=== PATIENT | male | born 1935 | race Caucasian/White ===

== ENCOUNTER 2016-09-23 14:16 | Observation (INO) | payer MEDICARE ==
[2016-09-23 14:32] LABS: Glucose,Whole Blood 133 mg/dL (75-99)
[2016-09-23] MEDS ORDERED: SODIUM CHLORIDE 0.9% 500 ML IV ONE (14:50)
--- NOTE | 2016-09-23 14:56 | ED ---
General Adult HPI - General Chief complaint: Syncope Stated complaint: WEAKNESS Time Seen by Provider: 09/23/16 14:20 Source: patient, RN notes reviewed Mode of arrival: EMS Limitations: physical limitation - History of Present Illness Initial comments: This is an 81-year-old male presents emergency department because he became very lethargic at some slurred speech and was difficult to keep awake. Patient states he thinks he took a restaurant set of an Aleve. Patient states he was taking an Aleve because he had some left lower quadrant pain which she has been battling intermittent over the last 6 months. Patient states he has a history of diverticulosis. Patient states he has no symptoms currently except for a little left lower quadrant tenderness. Patient denies any headache patient denies numbness weakness. Patient denies lightheadedness dizziness or near syncopal episode. Patient denies any chest pain palpitations difficulty breathing first breath. Patient denies any nausea vomiting or diarrhea. Patient's family states he acted as if he was really sleepy and was very difficult to keep awake and conversing however when he was able to converse he was able to walk except he was very tired. Patient states when he takes restaurant this is exactly how it makes him feel. - Related Data Home Medications Medication Instructions Recorded Confirmed Metoprolol Tartrate [Lopressor] 25 mg PO BID 01/14/15 09/23/16 Cholecalciferol [Vitamin D3] 5,000 unit PO DAILY 09/23/16 09/23/16 Multivit-Min/FA/Lycopen/Lutein 1 tab PO DAILY 09/23/16 09/23/16 [Centrum Silver Tablet] Naproxen Sodium [Aleve] 220 mg PO BID PRN 09/23/16 09/23/16 Temazepam [Restoril] 30 mg PO HS PRN 09/23/16 09/23/16 Previous Rx's Medication Instructions Recorded Aspirin 325 mg PO DAILY tab 01/17/15 Clopidogrel [Plavix] 75 mg PO DAILY #90 tab 01/17/15 Nitroglycerin Sl Tabs [Nitrostat] 0.4 mg SUBLINGUAL Q5M PRN #25 tab 01/17/15 Allergies Allergy/AdvReac Type Severity Reaction Status Date / Time No Known Allergies Allergy Verified 09/23/16 14:21 Review of Systems ROS Statement: Those systems with pertinent positive or pertinent negative responses have been documented in the HPI. ROS Other: All systems not noted in ROS Statement are negative. Past Medical History Past Medical History: Atrial Fibrillation, Chest Pain / Angina, Heart Failure, COPD, Dementia, Hyperlipidemia, Hypertension, Myocardial Infarction ([place]), Pneumonia Last Myocardial Infarction Date:: 2009 History of Any Multi-Drug Resistant Organisms: None Reported Past Surgical History: Back Surgery, Coronary Bypass/CABG, Heart Catheterization With Stent Additional Past Surgical History / Comment(s): stents x5. bypass pt states "around 2009 at [facility], he had openheart and it was unseccful on one side so they had to sent it. Past Anesthesia/Blood Transfusion Reactions: No Reported Reaction Date of Last Stent Placement:: 2009 Past Psychological History: No Psychological Hx Reported Smoking Status: Former smoker Past Alcohol Use History: None Reported Past Drug Use History: None Reported - Past Family History Father Additional Family Medical History / Comment(s): father had a cardica hx, unsure of what Brother(s) Additional Family Medical History / Comment(s): pt reports his brother to had a cardica hx General Exam - General Exam Comments Initial Comments: GENERAL: Patient is well-developed and well-nourished. Patient is nontoxic and well- hydrated and is in mild distress. ENT: Neck is soft and supple. No significant lymphadenopathy is noted. Oropharynx is clear. Moist mucous membranes. Neck has full range of motion without eliciting any pain. EYES: The sclera were anicteric and conjunctiva were pink and moist. Extraocular movements were intact and pupils were equal round and reactive to light. Eyelids were unremarkable. PULMONARY: Unlabored respirations. Good breath sounds bilaterally. No audible rales rhonchi or wheezing was noted. CARDIOVASCULAR: There is a regular rate and rhythm without any murmurs gallops or rubs. ABDOMEN: Patient has some mild left lower quadrant tenderness. Soft and nontender with normal bowel sounds. No palpable organomegaly was noted. There is no palpable pulsatile mass. SKIN: Skin is clear with no lesions or rashes and otherwise unremarkable. NEUROLOGIC: Patient is alert and oriented x3. Cranial nerves II through XII are grossly intact. Motor and sensory are also intact. Normal speech, volume and content. Symmetrical smile. MUSCULOSKELETAL: Normal extremities with adequate strength and full range of motion. LYMPHATICS: No significant lymphadenopathy is noted PSYCHIATRIC: Normal psychiatric evaluation. Limitations: physical limitation Course Vital Signs 08/10/17 08/10/17 14:17 16:15 Pulse Rate 62 75 Respiratory 20 20 Rate Blood Pressure 177/80 161/73 O2 Sat by Pulse 96 98 Oximetry Medical Decision Making - Medical Decision Making EKG shows atrial fibrillation at 74 bpm QRS 70 QT interval 412 QTC is 457 per patient's EKG shows no ST segment elevation or depression or T wave abnormalities are noted. CT of the abdomen pelvis show a mild to moderate diverticulitis - Lab Data Result diagrams: 09/23/16 14:58 09/23/16 14:58 Lab Results 09/23/16 09/23/16 09/23/16 Range/Units 14:29 14:58 14:58 WBC 6.8 (3.8-10.6) k/uL RBC 4.90 (4.30-5.90) m/uL Hgb 15.9 (13.0-17.5) gm/dL Hct 46.7 (39.0-53.0) % MCV 95.4 (80.0-100.0) fL MCH 32.4 (25.0-35.0) pg MCHC 33.9 (31.0-37.0) g/dL RDW 14.3 (11.5-15.5) % Plt Count 170 (150-450) k/uL Neutrophils % 77 % Lymphocytes % 11 % Monocytes % 8 % Eosinophils % 2 % Basophils % 0 % Neutrophils # 5.2 (1.3-7.7) k/uL Lymphocytes # 0.7 L (1.0-4.8) k/uL Monocytes # 0.5 (0-1.0) k/uL Eosinophils # 0.1 (0-0.7) k/uL Basophils # 0.0 (0-0.2) k/uL PT (9.0-12.0) sec INR (<1.2) APTT (22.0-30.0) sec Sodium (137-145) mmol/L Potassium (3.5-5.1) mmol/L Chloride (98-107) mmol/L Carbon Dioxide (22-30) mmol/L Anion Gap mmol/L BUN (9-20) mg/dL Creatinine (0.66-1.25) mg/dL Est GFR (MDRD) Af Amer (>60 ml/min/1.73 sqM) Est GFR (MDRD) Non-Af (>60 ml/min/1.73 sqM) Glucose (74-99) mg/dL POC Glucose (mg/dL) 133 H (75-99) mg/dL POC Glu [employer] Antony Peña Calcium (8.4-10.2) mg/dL Total Bilirubin (0.2-1.3) mg/dL AST (17-59) U/L ALT (21-72) U/L Alkaline Phosphatase (38-126) U/L Total Creatine Kinase 45 L (55-170) U/L CK-MB (CK-2) 1.0 (0.0-2.4) ng/mL CK-MB (CK-2) Rel Index 2.2 Troponin I <0.012 (0.000-0.034) ng/mL Total Protein (6.3-8.2) g/dL Albumin (3.5-5.0) g/dL 09/23/16 09/23/16 Range/Units 14:58 14:58 WBC (3.8-10.6) k/uL RBC (4.30-5.90) m/uL Hgb (13.0-17.5) gm/dL Hct (39.0-53.0) % MCV (80.0-100.0) fL MCH (25.0-35.0) pg MCHC (31.0-37.0) g/dL RDW (11.5-15.5) % Plt Count (150-450) k/uL Neutrophils % % Lymphocytes % % Monocytes % % Eosinophils % % Basophils % % Neutrophils # (1.3-7.7) k/uL Lymphocytes # (1.0-4.8) k/uL Monocytes # (0-1.0) k/uL Eosinophils # (0-0.7) k/uL Basophils # (0-0.2) k/uL PT 10.6 (9.0-12.0) sec INR 1.0 (<1.2) APTT 23.6 (22.0-30.0) sec Sodium 139 (137-145) mmol/L Potassium 4.5 (3.5-5.1) mmol/L Chloride 104 (98-107) mmol/L Carbon Dioxide 26 (22-30) mmol/L Anion Gap 9 mmol/L BUN 24 H (9-20) mg/dL Creatinine 1.10 (0.66-1.25) mg/dL Est GFR (MDRD) Af Amer >60 (>60 ml/min/1.73 sqM) Est GFR (MDRD) Non-Af >60 (>60 ml/min/1.73 sqM) Glucose 96 (74-99) mg/dL POC Glucose (mg/dL) (75-99) mg/dL POC Glu [employer] ID Calcium 9.3 (8.4-10.2) mg/dL Total Bilirubin 0.7 (0.2-1.3) mg/dL AST 28 (17-59) U/L ALT 35 (21-72) U/L Alkaline Phosphatase 70 (38-126) U/L Total Creatine Kinase (55-170) U/L CK-MB (CK-2) (0.0-2.4) ng/mL CK-MB (CK-2) Rel Index Troponin I (0.000-0.034) ng/mL Total Protein 6.6 (6.3-8.2) g/dL Albumin 3.9 (3.5-5.0) g/dL Disposition Clinical Impression: Diverticulitis, Accidental drug ingestion Disposition: ADMITTED IP TO THIS [facility] Referrals: Noy Ward MD [Primary Care Provider] - 1-2 days Time of Disposition: 16:29
[2016-09-23 15:17] LABS: Basophils % (A) 0 %; CH 32.3; Eosinophils # (A) 0.1 k/uL (0-0.7); Eosinophils % (A) 2 %; HCT 46.7 % (39.0-53.0); HDW 2.35; HGB 15.9 gm/dL (13.0-17.5); Luc # (Auto) 0.18; Luc % (Auto) 3; Lymphocytes # (A) 0.7 k/uL (1.0-4.8); Lymphocytes % (A) 11 %; MCH 32.4 pg (25.0-35.0); MCHC 33.9 g/dL (31.0-37.0); MCV 95.4 fL (80.0-100.0); Mean Platelet Volume 7.9; Monocytes # (A) 0.5 k/uL (0-1.0); Monocytes % (A) 8 %; Neutrophils # (A) 5.2 k/uL (1.3-7.7); Neutrophils % (A) 77 %; RDW 14.3 % (11.5-15.5); WBC 6.8 k/uL (3.8-10.6); WBC (Perox) 6.39
[2016-09-23 15:24] LABS: Partial Thromboplastin Time 23.6 sec (22.0-30.0); Prothrombin Time 10.6 sec (9.0-12.0)
[2016-09-23 15:25] LABS: ALT 35 U/L (21-72); AST 28 U/L (17-59); Alkaline Phosphatase 70 U/L (38-126); Anion Gap 9 mmol/L; Blood Urea Nitrogen 24 mg/dL (9-20); Calcium 9.3 mg/dL (8.4-10.2); Carbon Dioxide 26 mmol/L (22-30); Chloride 104 mmol/L (98-107); Glucose 96 mg/dL (74-99); Non-African American GFR(MDRD) >60 (>60 ml/min/1.73 sqM); Potassium 4.5 mmol/L (3.5-5.1); Sodium 139 mmol/L (137-145); Total Bilirubin 0.7 mg/dL (0.2-1.3); Total Protein 6.6 g/dL (6.3-8.2)
--- NOTE | 2016-09-23 15:38 | XR ---
EXAMINATION TYPE: XR chest 2V DATE OF EXAM: 09/23/2016 COMPARISON: 05/19/2016 TECHNIQUE: PA and lateral views submitted. HISTORY: Chest pain FINDINGS: The lungs are clear and there is no pneumothorax, pleural effusion, or focal pneumonia. Atheroscler otic change of the aorta. Postsurgical changes and cardiomegaly. Hypertrophic and degenerative change s spine. Suggestion of previous surgery involving the thoracolumbar junction. Question coronary arter y calcification. IMPRESSION: 1. No acute process.
[2016-09-23 15:39] LABS: Creatine Kinase 45 U/L (55-170)
--- NOTE | 2016-09-23 15:53 | CT ---
EXAMINATION TYPE: CT abdomen pelvis wo con DATE OF EXAM: 09/23/2016 HISTORY: weakness, syncope. Pain not further specified per order. CT DLP: 975 mGycm. Automated Exposure Control for Dose Reduction was Utilized. TECHNIQUE: CT scan of the abdomen and pelvis is performed without oral or IV contrast. COMPARISON: NONE FINDINGS: Within the limitations of a non-contrast study, the following observations are made. LUNG BASES: There is three-vessel coronary artery calcification and/or stents identified. LIVER/GB: Contracted gallbladder is seen. PANCREAS: No significant abnormality is seen. SPLEEN: No significant abnormality is seen. ADRENALS: No significant abnormality is seen. KIDNEYS: Some cortical thinning in both kidneys is present. There are several simple appearing cysts scattered throughout both kidneys. There is 1.1 cm hyperdense lesion posteriorly upper pole level rig ht kidney felt to reflect proteinaceous or hemorrhagic cyst. There is 4 mm calculus upper pole level left kidney on axial image 24. No hydronephrosis or obstructing renal calculi are seen bilaterally. N o intraluminal calculus and bladder is seen. BOWEL: There are scattered diverticula throughout the colon most pronounced involving the left and si gmoid colon. There is mild to borderline moderate inflammatory change near the descending sigmoid [place] ction left lower quadrant on axial image 52. CT findings are consistent with an acute diverticulitis at this level. No free air is seen. No well-formed adjacent fluid collection is noted. GENITAL ORGANS: Possible TURP type defect superior prostate gland is present. LYMPH NODES: No greater than 1cm abdominal or pelvic lymph nodes are appreciated. OSSEOUS STRUCTURES: Bilateral pars defects L5 level are present. There is slight grade 1 anterolisthe sis of L5 on S1. There is posterior interpedicular rods and screws at L2-L4 levels. There is moderate disc space narrowing at these levels. There is moderate disc space narrowing with vacuum disc phenom enon at the L5-S1 level. Disc desiccation L4-L5 level is seen. Osseous structures are demineralized. Moderate joint space loss in both hips is seen. OTHER: There is moderate calcified plaque of the aorta extending into pelvic branch vessels. There is moderate sized fat-containing left inguinal hernia. IMPRESSION: CT findings consistent with mild to borderline moderate acute diverticulitis centered lef t lower quadrant at the descending sigmoid colonic junction.
[2016-09-23 16:02] LABS: Troponin I <0.012 ng/mL (0.000-0.034)
[2016-09-23] MEDS ORDERED: LEVOFLOXACIN 750MG-D5W PMX 750 MG in DEXTROSE/WATER 1 150ML.BAG IVPB STA (16:27)
[2016-09-23] MEDS ORDERED: SODIUM CHLORIDE 0.9% 1,000 ML IV ONE (16:30)
[2016-09-23] MEDS ORDERED: HYDROmorphone 1 MG/ML 1 ML SYRINGE IVP PRN (16:30)
[2016-09-23] MEDS ORDERED: ONDANSETRON 4 MG/2 ML VIAL IVP PRN (16:31)
[2016-09-23 16:43] LABS: Appearance,Urine Clear (Clear); Bilirubin,Urine Negative (Negative); Glucose,Urine (UA) Negative (Negative); Ketones,Urine Negative (Negative); Leukocyte Esterase,Urine Negative (Negative); Mucus,Urine Rare /hpf; Nitrite,Urine Negative (Negative); PH, Urine 5.5 (5.0-8.0); Particle Count 490; Protein,Urine Negative (Negative); RBC,Urine 3 /hpf (0-5); Specific Gravity,Urine 1.013 (1.001-1.035); Sperm,Urine Rare /hpf; Squamous Epithelial Cell,Urine <1 /hpf (0-4); UA Billing (MACRO vs. MICRO) MICRO; Urobilinogen,Urine <2.0 mg/dL (<2.0)
[2016-09-23] MEDS ORDERED: diphenhydrAMINE 50 MG/ML 1 ML VIAL IVP PRN (17:56)
[2016-09-23] MEDS: metroNIDAZOLE-NS PMX 500 MG in SALINE 1 100ML.BAG IVPB SCH ×2 (18:04→23:18)
[2016-09-23] MEDS: METOPROLOL TARTRATE 25 MG TAB PO SCH (21:26)
[2016-09-24] MEDS: metroNIDAZOLE-NS PMX 500 MG in SALINE 1 100ML.BAG IVPB SCH ×4 (05:43→23:23)
[2016-09-24] MEDS: METOPROLOL TARTRATE 25 MG TAB PO SCH ×2 (08:43→20:02)
[2016-09-24] MEDS: CLOPIDOGREL 75 MG TAB PO SCH (08:43)
[2016-09-24] MEDS: ASPIRIN 325 MG TAB PO SCH (08:44)
[2016-09-24] MEDS: MULTIVITAMINS, THERA 1 EACH TAB PO SCH (11:42)
[2016-09-24] MEDS: CHOLECALCIFEROL 1,000 UNIT TAB PO SCH (11:42)
--- NOTE | 2016-09-24 15:19 | P.HPIM ---
History of Present Illness H&P Date: 09/24/16 Chief Complaint: Lethargic and abdominal pain This is a 81-year-old male, a patient of Dr. Ward. He has a known past medical history of diverticulitis, myocardial infarction, coronary artery disease with previous cardiac stents, atrial fibrillation, CHF, seizure disorder which last seizure was 7 years ago, hypertension and dementia. Patient reports that he was having some abdominal pain on the left lower quadrant. This pain has been ongoing for about 6 months. He's had a previous treatment of diverticulitis outpatient. He came into the emergency room after taking initially thought with Aleve to help with pain but he thinks he may had taken Restoril. He became lethargic and was having some slurring of speech and was brought into the emergency room. Tox screen did show a positive benzodiazepine. Patient also had a computed tomography scan of the abdomen which did show some evidence of diverticulitis. He was started on Flagyl and Levaquin in the emergency room. Patient developed a rash when the Levaquin was started. Levaquin was then discontinued. Patient is awake and alert and is asking when eating go home. He denies any fevers chills or sweats. He was able to eat this morning denies any bowel movement changes. Denies any chest pain shortness of breath. Denies a nausea or vomiting. Review of Systems Please refer to HPI otherwise unremarkable Past Medical History Past Medical History: Atrial Fibrillation, Chest Pain / Angina, Heart Failure, COPD, Dementia, Hyperlipidemia, Hypertension, Myocardial Infarction ([place]), Pneumonia Additional Past Medical History / Comment(s): aaa not sure of the size, diverticulosis, lower bridge,"occ panic attacks" "several mi's.rosacea, past gerd, arthritis Last Myocardial Infarction Date:: 2009 and 2014 History of Any Multi-Drug Resistant Organisms: None Reported Past Surgical History: Back Surgery, Coronary Bypass/CABG, Heart Catheterization With Stent Additional Past Surgical History / Comment(s): bypass 2010 at [facility], he had openheart and it was unsuccessfulll on one side so they had to stent it. pt stated he has a total of "10 stents", turp, lt cataract, colonoscopy/egd Past Anesthesia/Blood Transfusion Reactions: No Reported Reaction Date of Last Stent Placement:: 2009 Smoking Status: Former smoker - Past Family History Father Additional Family Medical History / Comment(s): father had a cardica hx, unsure of what Brother(s) Additional Family Medical History / Comment(s): pt reports his brother to had a cardica hx Medications and Allergies Home Medications Medication Instructions Recorded Confirmed Type Metoprolol Tartrate [Lopressor] 25 mg PO BID 01/14/15 09/23/16 History Cholecalciferol [Vitamin D3] 5,000 unit PO DAILY 09/23/16 09/23/16 History Multivit-Min/FA/Lycopen/Lutein 1 tab PO DAILY 09/23/16 09/23/16 History [Centrum Silver Tablet] Naproxen Sodium [Aleve] 220 mg PO BID PRN 09/23/16 09/23/16 History Temazepam [Restoril] 30 mg PO HS PRN 09/23/16 09/23/16 History Allergies Allergy/AdvReac Type Severity Reaction Status Date / Time levofloxacin [From Levaquin] Allergy Rash/Hives Verified 09/23/16 17:42 Physical Exam Vitals: Vital Signs Temp Pulse Pulse Resp BP BP Pulse Ox 09/24/16 07:00 97.3 F L 103 H 20 155/91 97 09/23/16 23:00 96.9 F L 73 14 135/74 96 09/23/16 18:44 96.1 F L 81 16 165/81 99 09/23/16 16:57 98.3 F 76 20 158/66 99 09/23/16 16:15 75 20 161/73 98 09/23/16 15:15 70 20 168/82 99 Intake and Output 09/24/16 09/24/16 09/24/16 06:59 14:59 22:59 Intake Total 700 Balance 700 Intake: Intake, IV Titration 700 Amount Sodium Chloride 0.9% 1, 600 000 ml @ 100 mls/hr IV . Q10H ONE Rx#:[id number] metroNIDAZOLE-NS PMX 500 100 mg In Saline 1 100ml.bag @ 100 mls/hr IVPB Q6HR ZHEN Rx#:[id number] Other: # Voids 1 Head normocephalic Neck supple Lungs clear to auscultation bilaterally no wheezing or crackles Heart regular rate and rhythm S1-S2, no rub or gallop Abdomen is soft nontender positive bowel sounds no hepatosplenomegaly. Left lower quadrant tenderness Extremities no edema Neuro alert and orientated to 3 Results CBC & Chem 7: 09/23/16 14:58 09/23/16 14:58 Labs: Abnormal Lab Results - Last 24 Hours (Table) 09/23/16 09/23/16 09/23/16 Range/Units 14:58 14:58 14:58 Lymphocytes # 0.7 L (1.0-4.8) k/uL BUN 24 H (9-20) mg/dL Total Creatine Kinase 45 L (55-170) U/L Urine Blood (Negative) Urine Mucus (None) /hpf U Benzodiazepines Scrn (NotDetected) 09/23/16 Range/Units 16:36 Lymphocytes # (1.0-4.8) k/uL BUN (9-20) mg/dL Total Creatine Kinase (55-170) U/L Urine Blood Trace H (Negative) Urine Mucus Rare H (None) /hpf U Benzodiazepines Scrn Detected H (NotDetected) Thrombosis Risk Factor Assmnt - Choose All That Apply Any of the Below Risk Factors Present?: Yes Each Factor Represents 1 point: Abnormal pulmonary function (COPD), Obesity ( BMI >25) Other Risk Factors: Yes Each Risk Factor Represents 3 Points: Age 75 years or older Other congenital or acquired thrombophilia - If yes, enter type in comment: No Thrombosis Risk Factor Assessment Total Risk Factor Score: 5 Thrombosis Risk Factor Assessment Level: High Risk Assessment and Plan Plan: 1. Acute diverticulitis: Computed tomography scan showing mild to borderline moderate acute diverticulitis centered left lower quadrant at the descending sigmoid colonic junction. Patient currently on Flagyl. He had ALLERGIC reaction to the Levaquin. Tolerating diet. Not requiring any pain medication. 2. Altered mental status changes with lethargy and slurring speech likely a toxic encephalopathy due to taking the wrong medication. Patient thinks he may have taken Restoril by mistake. Symptoms have now resolved 3. History of myocardial infarction with coronary artery disease and cardiac stents. Continue aspirin and Plavix 4. History of chronic atrial fibrillation. Continue metoprolol for rate control. 5. essential hypertension 6. Dementia Time with Patient: Greater than 30 (Greater than 50% of the total time spent in counseling and coordination of care.I performed an examination of the patient and discussed their management with the physician Triage Nurse. I have reviewed the Physician Triage Nurse's notes and agree with the documented findings and plan of care)
[2016-09-24] MEDS ORDERED: LEVOFLOXACIN 750MG-D5W PMX 750 MG in DEXTROSE/WATER 1 150ML.BAG IVPB SCH (16:00)
[2016-09-24 23:10] VITALS: RESP 16
[2016-09-25] MEDS: metroNIDAZOLE-NS PMX 500 MG in SALINE 1 100ML.BAG IVPB SCH ×2 (05:42→13:46)
[2016-09-25 07:38] VITALS: BP 149/84; PULSE 92; TEMP 98.7
[2016-09-25] MEDS: CLOPIDOGREL 75 MG TAB PO SCH (09:24)
[2016-09-25] MEDS: METOPROLOL TARTRATE 25 MG TAB PO SCH (09:24)
[2016-09-25] MEDS: ASPIRIN 325 MG TAB PO SCH (09:24)
[2016-09-25] MEDS: MULTIVITAMINS, THERA 1 EACH TAB PO SCH (12:40)
[2016-09-25] MEDS: CHOLECALCIFEROL 1,000 UNIT TAB PO SCH (12:40)
[2016-09-25] MEDS: metroNIDAZOLE 500 MG TAB PO SCH ×2 (13:43→13:45)
--- NOTE | 2016-09-25 14:16 | P.DS ---
Providers Date of admission: 09/23/16 16:31 Expected date of discharge: 09/25/16 Attending physician: Humza Montalvo Primary care physician: Noy Ward Hospital Course: Diagnoses on discharge: 1. Acute diverticulitis: Computed tomography scan showing mild to borderline moderate acute diverticulitis centered left lower quadrant at the descending sigmoid colonic junction. Patient currently on Flagyl. He had ALLERGIC reaction to the Levaquin. Tolerating diet. Not requiring any pain medication. 2. Altered mental status changes with lethargy and slurring speech likely a toxic encephalopathy due to taking the wrong medication. Patient thinks he may have taken Restoril by mistake. Symptoms have now resolved 3. History of myocardial infarction with coronary artery disease and cardiac stents. Continue aspirin and Plavix 4. History of chronic atrial fibrillation. Continue metoprolol for rate control. 5. essential hypertension 6. Dementia 7. ALLERGIC reaction to Levaquin during this admission Hospital course This is a 81-year-old male, a patient of Dr. Ward. He has a known past medical history of diverticulitis, myocardial infarction, coronary artery disease with previous cardiac stents, atrial fibrillation, CHF, seizure disorder which last seizure was 7 years ago, hypertension and dementia. Patient reports that he was having some abdominal pain on the left lower quadrant. This pain has been ongoing for about 6 months. He's had a previous treatment of diverticulitis outpatient. He came into the emergency room after taking initially thought with Aleve to help with pain but he thinks he may had taken Restoril. He became lethargic and was having some slurring of speech and was brought into the emergency room. Tox screen did show a positive benzodiazepine. Patient also had a computed tomography scan of the abdomen which did show some evidence of diverticulitis. He was started on Flagyl and Levaquin in the emergency room. Patient developed a rash when the Levaquin was started. Levaquin was then discontinued. Patient is awake and alert and is asking when eating go home. He denies any fevers chills or sweats. He was able to eat this morning denies any bowel movement changes. Denies any chest pain shortness of breath. Denies a nausea or vomiting. Patient improved significantly during this admission he received a dose of IV Levaquin he developed a rash on his face and upper chest Levaquin was discontinued and he was given IV Benadryl he improved significantly. He had episodes of diarrhea stools was checked for C. diff and it was negative. Patient was continued on Flagyl 500 mg 3 times daily he improved significantly was discharged home on 09/25/2016 on Flagyl 500 mg 3 times daily for 10 more days he will follow-up with his primary care physician Dr. ward within one week. Plan - Discharge Summary New Discharge Prescriptions: New metroNIDAZOLE [Flagyl] 500 mg PO 0000,0600,1200,1800 tab Continue Metoprolol Tartrate [Lopressor] 25 mg PO BID Aspirin 325 mg PO DAILY tab Clopidogrel [Plavix] 75 mg PO DAILY #90 tab Nitroglycerin Sl Tabs [Nitrostat] 0.4 mg SUBLINGUAL Q5M PRN #25 tab PRN Reason: Chest Pain Temazepam [Restoril] 30 mg PO HS PRN PRN Reason: Insomnia Cholecalciferol [Vitamin D3] 5,000 unit PO DAILY Multivit-Min/FA/Lycopen/Lutein [Centrum Silver Tablet] 1 tab PO DAILY Naproxen Sodium [Aleve] 220 mg PO BID PRN PRN Reason: Pain No Action metroNIDAZOLE [Flagyl] 500 mg PO TID Discharge Medication List Metoprolol Tartrate [Lopressor] 25 mg PO BID 01/14/15 [History] Aspirin 325 mg PO DAILY tab 01/17/15 [Rx] Clopidogrel [Plavix] 75 mg PO DAILY #90 tab 01/17/15 [Rx] Nitroglycerin Sl Tabs [Nitrostat] 0.4 mg SUBLINGUAL Q5M PRN #25 tab 01/17/15 [Rx ] Cholecalciferol [Vitamin D3] 5,000 unit PO DAILY 09/23/16 [History] Multivit-Min/FA/Lycopen/Lutein [Centrum Silver Tablet] 1 tab PO DAILY 09/23/16 [ History] Naproxen Sodium [Aleve] 220 mg PO BID PRN 09/23/16 [History] Temazepam [Restoril] 30 mg PO HS PRN 09/23/16 [History] metroNIDAZOLE [Flagyl] 500 mg PO 0000,0600,1200,1800 tab 09/25/16 [Rx] metroNIDAZOLE [Flagyl] 500 mg PO TID 09/25/16 [History] Follow up Appointment(s)/Referral(s): Noy Ward MD [Primary Care Provider] - 1-2 days [facility], [NON-STAFF] - As Needed Patient Instructions/Handouts: Diverticulitis Diet (DC) Activity/Diet/Wound Care/Special Instructions: heart healthy diet, no seeds/kernels.
== END 2016-09-25 14:39 | disposition home health service (06) ==
LOC: EC 14:16 → 4MS4W 16:31 → INTOOBSV 16:31
PROVIDERS: ADMIT Internal Medicine; ATTEND Internal Medicine
DX: K57.32 Diverticulitis of large intestine without perforation or abscess without bleeding (principal); R55 Syncope and collapse; R47.81 Slurred speech; K57.90 Diverticulosis of intestine, part unspecified, without perforation or abscess without bleeding; J44.9 Chronic obstructive pulmonary disease, unspecified; I50.9 Heart failure, unspecified; I11.0 Hypertensive heart disease with heart failure; I48.2 Chronic atrial fibrillation; I25.2 Old myocardial infarction; F03.90 Unspecified dementia, unspecified severity, without behavioral disturbance, psychotic disturbance, mood disturbance, and anxiety; E78.5 Hyperlipidemia, unspecified; G40.909 Epilepsy, unspecified, not intractable, without status epilepticus; I25.10 Atherosclerotic heart disease of native coronary artery without angina pectoris; M19.90 Unspecified osteoarthritis, unspecified site; K21.9 Gastro-esophageal reflux disease without esophagitis; L71.9 Rosacea, unspecified; R21 Rash and other nonspecific skin eruption; Z79.899 Other long term (current) drug therapy; Z79.82 Long term (current) use of aspirin; Z79.02 Long term (current) use of antithrombotics/antiplatelets; F41.0 Panic disorder [episodic paroxysmal anxiety]; T37.8X5A Adverse effect of other specified systemic anti-infectives and antiparasitics, initial encounter; Z95.1 Presence of aortocoronary bypass graft; Z87.891 Personal history of nicotine dependence; Z95.5 Presence of coronary angioplasty implant and graft; Z88.1 Allergy status to other antibiotic agents; R41.82 Altered mental status, unspecified
CPT/HCPCS: 96361 ×2; 96365; 96366 ×3; 96367; 96375; 99285; 36415; 93005; 80053; 82550; 82553; 84484; 85025; 85610; 85730; 81001; 87040; 87324; 80306; 71020; 74176; G0378 ×3; J1200; J1170; J1956

== ENCOUNTER 2017-04-19 17:40 | Inpatient (IN) | payer MEDICARE ==
[2017-04-19] MEDS ORDERED: OCTREOTIDE 100 MCG/ML INJ IVP STA (18:13)
[2017-04-19] MEDS ORDERED: SODIUM CHLORIDE 0.9% 1,000 ML IV STA ×2 (18:13)
[2017-04-19] MEDS ORDERED: OCTREOTIDE 200 MCG in SODIUM CHLORIDE 0.9% 100 ML IV STA (18:13)
[2017-04-19] MEDS ORDERED: RX INFO: IV CONTRAST WAS GIVEN 1 EACH MISC MISCELLANE PRN (18:13)
[2017-04-19] MEDS ORDERED: ONDANSETRON 4 MG/2 ML VIAL IVP STA (18:13)
[2017-04-19] MEDS ORDERED: PANTOPRAZOLE 40 MG/10 ML VIAL IVP STA (18:13)
[2017-04-19] MEDS ORDERED: LABETALOL 5 MG/ML VIAL MDV IVP STA (18:20)
--- NOTE | 2017-04-19 18:20 | ED ---
GI Bleed HPI - General Chief complaint: GI Bleed Stated complaint: GI Bleed Time Seen by Provider: 04/19/17 18:05 Source: patient, EMS Mode of arrival: EMS Limitations: no limitations - History of Present Illness Initial comments: This 82-year-old white male presents to the ER for gastrointestinal bleeding. He apparently had approximate 10-11 episodes of bright red blood per rectum which started this morning. He had a large bloody bowel movement in the emergency department as well. He states that he has had some diffuse abdominal pain present for approximately one year. He denies any known previous history of GI bleeding other than he might of had some blood 3 days ago but he is unsure. He states that his stool was very black this morning but eventually turned more into bright red blood. He has had some hemorrhoids in the past. He states that he has had some slight feverishness. His history is somewhat questionable as he does seem as though he may have some slight dementia. He also complains of some lightheadedness. He currently is on aspirin and Plavix. No other identifiable complaints or modifying factors. - Related Data Home Medications Medication Instructions Recorded Confirmed Metoprolol Tartrate [Lopressor] 25 mg PO BID 01/14/15 04/19/17 Temazepam [Restoril] 30 mg PO HS PRN 09/23/16 04/19/17 Previous Rx's Medication Instructions Recorded Aspirin 325 mg PO DAILY tab 01/17/15 Clopidogrel [Plavix] 75 mg PO DAILY #90 tab 01/17/15 Allergies Allergy/AdvReac Type Severity Reaction Status Date / Time levofloxacin [From Levaquin] Allergy Rash/Hives Verified 04/19/17 18:54 Review of Systems ROS Statement: Those systems with pertinent positive or pertinent negative responses have been documented in the HPI. ROS Other: All systems not noted in ROS Statement are negative. Past Medical History Past Medical History: Atrial Fibrillation, Chest Pain / Angina, Heart Failure, COPD, Dementia, Hyperlipidemia, Hypertension, Myocardial Infarction ([place]), Pneumonia Additional Past Medical History / Comment(s): aaa not sure of the size, diverticulosis, lower bridge,"occ panic attacks" "several mi's.rosacea, past gerd, arthritis Last Myocardial Infarction Date:: 2009 and 2014 History of Any Multi-Drug Resistant Organisms: None Reported Past Surgical History: Back Surgery, Coronary Bypass/CABG, Heart Catheterization With Stent Additional Past Surgical History / Comment(s): bypass 2010 at [facility], he had openheart and it was unsuccessfulll on one side so they had to stent it. pt stated he has a total of "10 stents", turp, lt cataract, colonoscopy/egd Past Anesthesia/Blood Transfusion Reactions: No Reported Reaction Date of Last Stent Placement:: 2009 Past Psychological History: Anxiety Smoking Status: Former smoker Past Alcohol Use History: None Reported Past Drug Use History: None Reported - Past Family History Father Additional Family Medical History / Comment(s): father had a cardica hx, unsure of what Brother(s) Additional Family Medical History / Comment(s): pt reports his brother to had a cardica hx General Exam - General Exam Comments Initial Comments: GENERAL: The patient is well nourished and well hydrated. VITAL SIGNS: Heart rate, blood pressure, respiratory rate reviewed as recorded in nurse's notes. EYES: Pupils are round and reactive. Extraocular movements are intact. No conjunctival / lid redness or swelling. ENT: No external evidence of injury, swelling, or ecchymosis. Airway is patent. Throat is clear. NECK: Nontender. No swelling or evidence of injury. No subcutaneous emphysema. Trachea is midline. No thyroid mass. HEART: Regular rate and rhythm. Good peripheral pulses. LUNGS/CHEST: Breath sounds clear and equal bilaterally. No rales, rhonchi, or wheezes. No ecchymosis, subcutaneous emphysema, or tenderness. ABDOMEN: There is some mild diffuse tenderness noted. No palpable masses or organomegaly. No peritoneal signs. No abdominal wall swelling or ecchymosis. EXTREMITIES: No extremity tenderness. Normal muscle tone and function. No thoracolumbar tenderness. NEUROLOGIC: Sensation is grossly intact. Cranial nerve exam reveals face is symmetrical, tongue is midline, speech is clear. SKIN: No abrasions or ecchymosis is noted. No induration or masses noted. PSYCHIATRIC: Alert and oriented. Appropriate behavior but judgment is slightly off and it is felt as though there may be some dementia. Limitations: no limitations Course Vital Signs 04/19/17 04/19/17 04/19/17 17:42 18:57 19:15 Temperature 100.1 F H Pulse Rate 77 146 H 78 Respiratory 19 18 18 Rate Blood Pressure 187/101 149/88 144/80 O2 Sat by Pulse 98 97 97 Oximetry Medical Decision Making - Medical Decision Making The patient was seen and examined. All diagnostics were reviewed. An IV is established. The patient is hydrated. Octreotide and Protonix or started intravenously. The EKG shows evidence of atrial fibrillation with a competing junctional pacemaker. The patient has some nonspecific ST-T wave changes laterally. The QRS duration is 90 and the QTC intervals 459. The hemoglobin came back stable at 13.5. He did have 2 large bowel movements ever bright red blood related in the emergency department. The patient also had a computed tomography scan of the abdomen and pelvis which did not show any acute process. It is felt that this likely could be related to an upper GI bleed. He, however, does have a history of diverticulosis as well. It is felt as though he would benefit from admission to the hospital. Case is discussed with Dr. Womack and he is agreeable to admission. Case is also discussed with Dr. Gardner and he will cover for ICU management. Page is currently out for the coke still cleaner and case will be reviewed with them as well. Approximately 30 minutes critical care time is utilized and the treatment of the patient. Repeat hemoglobin is ordered and is pending. - Lab Data Result diagrams: 04/19/17 17:50 04/19/17 17:50 Lab Results 04/19/17 04/19/17 04/19/17 Range/Units 17:50 17:50 17:50 WBC (3.8-10.6) k/uL RBC (4.30-5.90) m/uL Hgb (13.0-17.5) gm/dL Hct (39.0-53.0) % MCV (80.0-100.0) fL MCH (25.0-35.0) pg MCHC (31.0-37.0) g/dL RDW (11.5-15.5) % Plt Count (150-450) k/uL Neutrophils % % Lymphocytes % % Monocytes % % Eosinophils % % Basophils % % Neutrophils # (1.3-7.7) k/uL Lymphocytes # (1.0-4.8) k/uL Monocytes # (0-1.0) k/uL Eosinophils # (0-0.7) k/uL Basophils # (0-0.2) k/uL APTT (22.0-30.0) sec Sodium 141 (137-145) mmol/L Potassium 4.6 (3.5-5.1) mmol/L Chloride 104 (98-107) mmol/L Carbon Dioxide 25 (22-30) mmol/L Anion Gap 12 mmol/L BUN 25 H (9-20) mg/dL Creatinine 1.00 (0.66-1.25) mg/dL Est GFR (CKD-EPI)AfAm 80 (>60 ml/min/1.73 sqM) Est GFR (CKD-EPI)NonAf 69 (>60 ml/min/1.73 sqM) Glucose 100 H (74-99) mg/dL Calcium 9.9 (8.4-10.2) mg/dL Total Bilirubin 0.6 (0.2-1.3) mg/dL AST 30 (17-59) U/L ALT 25 (21-72) U/L Alkaline Phosphatase 63 (38-126) U/L Total Creatine Kinase 45 L (55-170) U/L CK-MB (CK-2) 1.1 (0.0-2.4) ng/mL CK-MB (CK-2) Rel Index 2.4 Troponin I 0.016 (0.000-0.034) ng/mL Total Protein 7.0 (6.3-8.2) g/dL Albumin 4.0 (3.5-5.0) g/dL Amylase 56 (30-110) U/L Lipase 172 (23-300) U/L Stool Occult Blood Positive (Negative) C. difficile (EIA) Intrp (Negative) Blood Type Blood Type Recheck Antibody Screen Spec Expiration Date 04/19/17 04/19/17 04/19/17 Range/Units 17:50 17:50 17:50 WBC 6.1 (3.8-10.6) k/uL RBC 4.45 (4.30-5.90) m/uL Hgb 13.9 (13.0-17.5) gm/dL Hct 41.5 (39.0-53.0) % MCV 93.3 (80.0-100.0) fL MCH 31.3 (25.0-35.0) pg MCHC 33.5 (31.0-37.0) g/dL RDW 13.1 (11.5-15.5) % Plt Count 176 (150-450) k/uL Neutrophils % 74 % Lymphocytes % 13 % Monocytes % 9 % Eosinophils % 2 % Basophils % 0 % Neutrophils # 4.5 (1.3-7.7) k/uL Lymphocytes # 0.8 L (1.0-4.8) k/uL Monocytes # 0.5 (0-1.0) k/uL Eosinophils # 0.1 (0-0.7) k/uL Basophils # 0.0 (0-0.2) k/uL APTT 25.9 (22.0-30.0) sec Sodium (137-145) mmol/L Potassium (3.5-5.1) mmol/L Chloride (98-107) mmol/L Carbon Dioxide (22-30) mmol/L Anion Gap mmol/L BUN (9-20) mg/dL Creatinine (0.66-1.25) mg/dL Est GFR (CKD-EPI)AfAm (>60 ml/min/1.73 sqM) Est GFR (CKD-EPI)NonAf (>60 ml/min/1.73 sqM) Glucose (74-99) mg/dL Calcium (8.4-10.2) mg/dL Total Bilirubin (0.2-1.3) mg/dL AST (17-59) U/L ALT (21-72) U/L Alkaline Phosphatase (38-126) U/L Total Creatine Kinase (55-170) U/L CK-MB (CK-2) (0.0-2.4) ng/mL CK-MB (CK-2) Rel Index Troponin I (0.000-0.034) ng/mL Total Protein (6.3-8.2) g/dL Albumin (3.5-5.0) g/dL Amylase (30-110) U/L Lipase (23-300) U/L Stool Occult Blood (Negative) C. difficile (EIA) Intrp (Negative) Blood Type O Positive Blood Type Recheck O Pos Antibody Screen NEGATIVE Spec Expiration Date 04/22/2017 - 234904/19/17 Range/Units 17:50 WBC (3.8-10.6) k/uL RBC (4.30-5.90) m/uL Hgb (13.0-17.5) gm/dL Hct (39.0-53.0) % MCV (80.0-100.0) fL MCH (25.0-35.0) pg MCHC (31.0-37.0) g/dL RDW (11.5-15.5) % Plt Count (150-450) k/uL Neutrophils % % Lymphocytes % % Monocytes % % Eosinophils % % Basophils % % Neutrophils # (1.3-7.7) k/uL Lymphocytes # (1.0-4.8) k/uL Monocytes # (0-1.0) k/uL Eosinophils # (0-0.7) k/uL Basophils # (0-0.2) k/uL APTT (22.0-30.0) sec Sodium (137-145) mmol/L Potassium (3.5-5.1) mmol/L Chloride (98-107) mmol/L Carbon Dioxide (22-30) mmol/L Anion Gap mmol/L BUN (9-20) mg/dL Creatinine (0.66-1.25) mg/dL Est GFR (CKD-EPI)AfAm (>60 ml/min/1.73 sqM) Est GFR (CKD-EPI)NonAf (>60 ml/min/1.73 sqM) Glucose (74-99) mg/dL Calcium (8.4-10.2) mg/dL Total Bilirubin (0.2-1.3) mg/dL AST (17-59) U/L ALT (21-72) U/L Alkaline Phosphatase (38-126) U/L Total Creatine Kinase (55-170) U/L CK-MB (CK-2) (0.0-2.4) ng/mL CK-MB (CK-2) Rel Index Troponin I (0.000-0.034) ng/mL Total Protein (6.3-8.2) g/dL Albumin (3.5-5.0) g/dL Amylase (30-110) U/L Lipase (23-300) U/L Stool Occult Blood (Negative) C. difficile (EIA) Intrp Negative (Negative) Blood Type Blood Type Recheck Antibody Screen Spec Expiration Date Disposition Clinical Impression: Acute GI bleeding, Lightheadedness, Hypertension, Abdominal pain Disposition: ADMITTED IP TO THIS [facility] Condition: Critical Time of Disposition: 22:00 Decision Date: 04/19/17 Decision Time: 22:00
[2017-04-19 18:34] LABS: Basophils % (A) 0 %; Eosinophils # (A) 0.1 k/uL (0-0.7); Eosinophils % (A) 2 %; HCT 41.5 % (39.0-53.0); HGB 13.9 gm/dL (13.0-17.5); Lymphocytes # (A) 0.8 k/uL (1.0-4.8); Lymphocytes % (A) 13 %; MCH 31.3 pg (25.0-35.0); MCHC 33.5 g/dL (31.0-37.0); MCV 93.3 fL (80.0-100.0); Mean Platelet Volume 8.3; Monocytes # (A) 0.5 k/uL (0-1.0); Monocytes % (A) 9 %; Neutrophils # (A) 4.5 k/uL (1.3-7.7); Neutrophils % (A) 74 %; Platelet Count 176 k/uL (150-450); RBC 4.45 m/uL (4.30-5.90); RDW 13.1 % (11.5-15.5); WBC 6.1 k/uL (3.8-10.6)
[2017-04-19 18:52] LABS: Calcium 9.9 mg/dL (8.4-10.2); Potassium 4.6 mmol/L (3.5-5.1); Total Bilirubin 0.6 mg/dL (0.2-1.3)
[2017-04-19 19:08] LABS: Creatine Kinase MB 1.1 ng/mL (0.0-2.4)
[2017-04-19 19:12] LABS: Troponin I 0.016 ng/mL (0.000-0.034)
--- NOTE | 2017-04-19 20:55 | CT ---
EXAMINATION TYPE: CT abdomen pelvis w con DATE OF EXAM: 04/19/2017 COMPARISON: NONE HISTORY: Patient complains of bloody stool. CT DLP: 1399 mGycm Automated exposure control for dose reduction was used. TECHNIQUE: Helical acquisition of images was performed from the lung bases through the pelvis. CONTRAST: Performed without Oral Contrast and with IV Contrast, patient injected with 100 mL of Omnip aque 300. FINDINGS: LUNG BASES: No significant abnormality is appreciated. LIVER/GB: No significant abnormality is appreciated. PANCREAS: No significant abnormality is seen. SPLEEN: No significant abnormality is seen. ADRENALS: No significant abnormality is seen. KIDNEYS: No significant abnormality is seen. FREE AIR: No free air is visualized. RETROPERITONEAL ADENOPATHY: None visualized REPRODUCTIVE ORGANS: No significant abnormality is seen URINARY BLADDER: No significant abnormality is seen. PELVIC ADENOPATHY: None visualized. OSSEOUS STRUCTURES: No significant abnormality is seen. BOWEL: No significant abnormality is seen. OTHER: Vasculature is unremarkable for acute findings. IMPRESSION: NO ACUTE PROCESS.
[2017-04-19] MEDS ORDERED: MORPHINE SULFATE 4 MG/ML SYRINGE IV PRN (22:01)
[2017-04-19] MEDS ORDERED: MORPHINE SULFATE 4 MG/ML SYRINGE IVP PRN (22:01)
[2017-04-19] MEDS ORDERED: NALOXONE 0.4 MG/ML 1 ML VIAL IV PRN (22:01)
[2017-04-19 22:24] LABS: Basophils % (A) 0 %; Eosinophils # (A) 0.1 k/uL (0-0.7); Eosinophils % (A) 1 %; HCT 38.1 % (39.0-53.0); HGB 12.6 gm/dL (13.0-17.5); Lymphocytes # (A) 0.6 k/uL (1.0-4.8); Lymphocytes % (A) 13 %; MCH 31.1 pg (25.0-35.0); MCV 94.1 fL (80.0-100.0); Mean Platelet Volume 7.9; Monocytes # (A) 0.4 k/uL (0-1.0); Monocytes % (A) 8 %; Neutrophils # (A) 3.6 k/uL (1.3-7.7); Neutrophils % (A) 74 %; Platelet Count 142 k/uL (150-450); RBC 4.05 m/uL (4.30-5.90); RDW 13.2 % (11.5-15.5); WBC 4.8 k/uL (3.8-10.6)
[2017-04-19 22:25] LABS: INR 1.1 (<1.2); Prothrombin Time 10.8 sec (9.0-12.0)
[2017-04-20 02:59] LABS: Basophils % (A) 0 %; Eosinophils # (A) 0.1 k/uL (0-0.7); Eosinophils % (A) 1 %; HCT 36.2 % (39.0-53.0); HGB 11.8 gm/dL (13.0-17.5); Lymphocytes # (A) 0.7 k/uL (1.0-4.8); Lymphocytes % (A) 14 %; MCH 31.1 pg (25.0-35.0); MCHC 32.6 g/dL (31.0-37.0); MCV 95.4 fL (80.0-100.0); Mean Platelet Volume 7.7; Monocytes # (A) 0.5 k/uL (0-1.0); Monocytes % (A) 10 %; Neutrophils # (A) 3.5 k/uL (1.3-7.7); Neutrophils % (A) 71 %; Platelet Count 137 k/uL (150-450); RDW 13.3 % (11.5-15.5); WBC 4.9 k/uL (3.8-10.6)
[2017-04-20] MEDS: ACETAMINOPHEN TAB 325 MG TAB PO PRN (06:49)
[2017-04-20] MEDS: METOPROLOL TARTRATE 25 MG TAB PO SCH ×2 (08:00→21:04)
[2017-04-20 08:01] LABS: Basophils % (A) 0 %; Eosinophils # (A) 0.1 k/uL (0-0.7); Eosinophils % (A) 2 %; HCT 36.3 % (39.0-53.0); Lymphocytes # (A) 0.5 k/uL (1.0-4.8); Lymphocytes % (A) 9 %; MCH 31.2 pg (25.0-35.0); MCV 94.6 fL (80.0-100.0); Mean Platelet Volume 7.8; Monocytes # (A) 0.4 k/uL (0-1.0); Monocytes % (A) 8 %; Neutrophils # (A) 4.3 k/uL (1.3-7.7); Neutrophils % (A) 79 %; Platelet Count 164 k/uL (150-450); RBC 3.84 m/uL (4.30-5.90); RDW 13.3 % (11.5-15.5); WBC 5.5 k/uL (3.8-10.6)
[2017-04-20] MEDS: PANTOPRAZOLE 40 MG/10 ML VIAL IV SCH (08:03)
--- NOTE | 2017-04-20 10:41 | P.CONS ---
History of Present Illness - Reason for Consult Consult date: 04/20/17 GI bleed rectal bleeding Requesting physician: Fanny Womack - History of Present Illness 82-year-old gentleman patient of Dr. Ward with a past medical history of atrial fibrillation, COPD, heart failure, possible AAA, colonic diverticulosis, hypertension, hyperlipidemia, [place], CAD/CABG/PCI multiple stents maintained on aspirin Plavix, and anxiety. Patient presented with lower abdominal pain with mixed bloody bowel movements bright red sometimes black in nature for the last 2 days with intermittent lightheadedness; lower abdominal pain has been present intermittently for more than a year. Patient had several bowel movements over the last 24 hours including one this morning that were blood-tinged. No history GI bleed. CT abdomen and pelvis reported no acute process. Denies chills weight loss hematemesis but appetite has decreased over the last year intermittent episodes of reflux indigestion. T-max 100.1. Admission hemoglobin 13.9 presently 12. Platelet 164. INR 1.1. Hemoccult stool positive. Clostridium difficile negative. BUN 25. Creatinine 1.0. Review of Systems Constitutional: Denies fever, chills, sweats, weight gain, or loss. HEENT: Negative for migraines, blurred vision or loss, earaches, drainage, tinnitus, oral mucosal lesions, dysphagia, or odynophagia. Cardiac: Hypertension. A. fib. CAD CABG. PCI stents. CHF. Hyperlipidemia. AAA. Negative for chest pain, arrhythmias, or palpitation. Respiratory: Negative for shortness of breath, hemoptysis, cough, or sputum production. Gastrointestinal: See HPI for pertinent findings. Genitourinary: Negative for hematuria, urgency, frequency, polyuria, dysuria, or penile discharge. Musculoskeletal: Negative for muscle aches, swelling, arthritis, and arthralgias. Neurologic: Negative for stroke or TIA. Endocrine: Negative for thyroid problems. Skin: Negative for rash or itching. Psychiatric: Negative history for depression and anxiety Past Medical History Past Medical History: Atrial Fibrillation, Chest Pain / Angina, Heart Failure, COPD, Dementia, Hyperlipidemia, Hypertension, Myocardial Infarction ([place]), Pneumonia Additional Past Medical History / Comment(s): aaa not sure of the size, diverticulosis, lower bridge,"occ panic attacks" "several mi's.rosacea, past gerd, arthritis Last Myocardial Infarction Date:: 2009 and 2014 History of Any Multi-Drug Resistant Organisms: None Reported Past Surgical History: Back Surgery, Coronary Bypass/CABG, Heart Catheterization With Stent Additional Past Surgical History / Comment(s): bypass 2010 at [facility], he had openheart and it was unsuccessfulll on one side so they had to stent it. pt stated he has a total of "10 stents", turp, lt cataract, colonoscopy/egd Past Anesthesia/Blood Transfusion Reactions: No Reported Reaction Date of Last Stent Placement:: 2009 Past Psychological History: Anxiety Smoking Status: Former smoker Past Alcohol Use History: None Reported Past Drug Use History: None Reported - Past Family History Father Additional Family Medical History / Comment(s): father had a cardica hx, unsure of what Brother(s) Additional Family Medical History / Comment(s): pt reports his brother to had a cardica hx Medications and Allergies Home Medications Medication Instructions Recorded Confirmed Type Metoprolol Tartrate [Lopressor] 25 mg PO BID 01/14/15 04/19/17 History Aspirin 325 mg PO DAILY tab 01/17/15 04/19/17 Rx Clopidogrel [Plavix] 75 mg PO DAILY #90 tab 01/17/15 04/19/17 Rx Temazepam [Restoril] 30 mg PO HS PRN 09/23/16 04/19/17 History Allergies Allergy/AdvReac Type Severity Reaction Status Date / Time levofloxacin [From Levaquin] Allergy Rash/Hives Verified 04/19/17 18:54 Physical Exam Vitals: Vital Signs Temp Pulse Resp BP Pulse Ox 04/20/17 07:16 93 16 180/82 99 04/20/17 06:42 80 18 148/66 98 04/20/17 04:00 81 18 157/74 98 04/20/17 00:51 77 18 138/63 96 04/19/17 23:06 71 18 128/62 96 04/19/17 22:33 98.3 F 04/19/17 22:11 85 18 171/90 99 04/19/17 19:15 78 18 144/80 97 04/19/17 18:57 146 H 18 149/88 97 04/19/17 17:42 100.1 F H 77 19 187/101 98 Intake and Output 04/19/17 04/20/17 04/20/17 22:59 06:59 14:59 Output Total 850 25 Balance -850 -25 Output: Stool 850 25 Other: Weight 79.832 kg General appearance: The patient is alert, oriented, in no acute distress. HET: Head is normocephalic and atraumatic. Pupils are equal and reactive. Oropharynx is clear without lesions. Neck: Supple without lymphadenopathy. Trachea midline. Heart: S1 S2. Regular rate and rhythm. Lungs: No crackles or wheezes are heard. Abdomen: Soft, mild bilateral lower quadrant tenderness left greater than right as well as in the infraumbilical region nondistended with bowel sounds. No peritoneal signs. No palpable organomegaly or masses. Extremities: Normal skin color and turgor. No cyanosis, rash, ulceration, clubbing, or edema. Radial and pedal pulses are 2/4 bilaterally. Neurological: No focal deficits. Strength and sensation are grossly intact. Results CBC & Chem 7: 04/20/17 07:40 04/19/17 17:50 Labs: Abnormal Lab Results - Last 24 Hours (Table) 04/19/17 04/19/17 04/19/17 Range/Units 17:50 17:50 17:50 RBC (4.30-5.90) m/uL Hgb (13.0-17.5) gm/dL Hct (39.0-53.0) % Plt Count (150-450) k/uL Lymphocytes # 0.8 L (1.0-4.8) k/uL BUN 25 H (9-20) mg/dL Glucose 100 H (74-99) mg/dL Total Creatine Kinase 45 L (55-170) U/L 04/19/17 04/20/17 Range/Units 22:10 02:21 RBC 4.05 L 3.80 L (4.30-5.90) m/uL Hgb 12.6 L 11.8 L (13.0-17.5) gm/dL Hct 38.1 L 36.2 L (39.0-53.0) % Plt Count 142 L 137 L (150-450) k/uL Lymphocytes # 0.6 L 0.7 L (1.0-4.8) k/uL BUN (9-20) mg/dL Glucose (74-99) mg/dL Total Creatine Kinase (55-170) U/L Microbiology - Last 24 Hours (Table) 04/19/17 17:50 Stool Culture - Preliminary Stool CT scan - abdomen: report reviewed (Dr. Keane) Assessment and Plan (1) Acute GI bleeding Narrative/Plan: 82-year-old gentleman admitted with acute GI bleed with acute epigastric pain as well as lower abdominal pain intermittently in the last year with a history of underlying colonic diverticulosis and significant cardiac history maintained on dual antiplatelet therapy. Possibel GERD possible peptic ulcer disease possible diverticular bleed however other pathology such as ischemic colitis inflammatory colitis cannot be entirely excluded. Current Visit: Yes Status: Acute Code(s): K92.2 - GASTROINTESTINAL HEMORRHAGE, UNSPECIFIED SNOMED Code(s): 99572743 (2) Colon, diverticulosis Current Visit: Yes Status: Acute Code(s): K57.30 - DVRTCLOS OF LG INT W/O PERFORATION OR ABSCESS W/O BLEEDING SNOMED Code(s): 919237268 (3) Acute blood loss anemia Current Visit: Yes Status: Acute Code(s): D62 - ACUTE POSTHEMORRHAGIC ANEMIA SNOMED Code(s): 113582364 Plan: 1. We'll proceed with EGD colonoscopy tomorrow for evaluation of mixed red black rectal bleeding and intermittent indigestion. 2. CBC monitoring. 3. Protonix 40 mg IV daily. 4. Clear liquid diet and nothing by mouth after midnight. The lead dental assistant has discussed the risks, benefits and alternative therapies for the above-mentioned procedure and for both sedation/analgesia as well as necessary blood product administration, if indicated, as they pertain to this patient. The patient has indicated understanding and acceptance of the risks and procedures discussed. Thank you for this kind referral and the opportunity to participate in the care of your patient. This consultation was discussed with Dr. Keane. The impression and plan of care have been directed as dictated.
--- NOTE | 2017-04-20 13:05 | P.CNPUL ---
<Nalini Hair M - Last Filed: 04/20/17 12:46> History of Present Illness Consult date: 04/20/17 Requesting physician: Fanny Womack Reason for consult: other Chief complaint: Acute lower GI bleed History of present illness: Mr. Garcia is a 82-year-old white male patient of Dr. Ward, who presented to the emergency department on 04/19/2017 at 1740 after having a dozen episodes of dark and bright red bowel movements, initially more dark, and smaller amounts, progressing to more red in nature. Patient did have some diffuse abdominal pain , and pain along the left rib margin. He thinks he may have had previous scopes , but he is unsure. History of hemorrhoids in the past. Patient does have underlying history of mild dementia. Complained of some lightheadedness, but denied chest pain, shortness of breath or syncope. Past medical history is positive for coronary artery disease, history of coronary bypass grafting, coronary stents, chronic A. fib, not on any anti-coagulation other than aspirin and Plavix, CHF, COPD, hyperlipidemia, hypertension, myocardial infarction, pneumonia. Patient thinks he has a thoracic aortic aneurysm, is pointing to his chest area. Unsure of the size. Medical records from previous admission state he has a AAA of 4.2 cm. Other history includes diverticulosis, GERD, anxiety, previous nicotine dependence. CT of abdomen and pelvis not show any acute process. Twelve-lead EKG showed atrial fibrillation with a rate of 80 BPM. Admission hemoglobin was 13.9, this morning is down to 12.0. White count was normal, at 6.1, PT/INR are 10.8 and 1.1 respectively. Normal electrolyte panel, B1 is 25, creatinine is 1.0. Patient was given Sandostatin and Protonix in the ER last night. Sandostatin is now discontinued. Patient had one episode of bowel movement which was maroon in appearance. Patient received a bolus of 0.9 normal saline, his IV fluids were hep-locked. We will restart the IV fluids at 0.9 normal saline at 60 ML per hour. During the time of evaluation patient is awake, alert, does not appear to be in any acute distress , he denies chest pain, shortness of breath. He is on 2 L per nasal cannula with O2 sat 99%. He is maintaining normal vitals, was a little hypertensive last night, for which she was given a dose of labetalol. This morning his blood pressure is 140/70, heart rate is 88, patient is afebrile. Patient's lung sounds are clear. No further episodes of GI bleeding this morning. He was seen in consultation by the GI service was planned and on EGD and colonoscopy tomorrow. Pulmonary/critical care standpoint patient is stable for placement on gen. medical/surgical floor. Review of Systems All systems: negative Constitutional: Denies chills, Denies fever Eyes: denies blurred vision, denies pain Ears, nose, mouth and throat: Denies headache, Denies sore throat Cardiovascular: Denies chest pain, Denies shortness of breath Respiratory: Denies cough Gastrointestinal: Denies abdominal pain, Denies diarrhea, Denies nausea, Denies vomiting Musculoskeletal: Denies myalgias Integumentary: Denies pruritus, Denies rash Neurological: Denies numbness, Denies weakness Psychiatric: Denies anxiety, Denies depression Endocrine: Denies fatigue, Denies weight change Past Medical History Past Medical History: Atrial Fibrillation, Chest Pain / Angina, Heart Failure, COPD, Dementia, Hyperlipidemia, Hypertension, Myocardial Infarction ([place]), Pneumonia Additional Past Medical History / Comment(s): aaa not sure of the size, diverticulosis, lower bridge,"occ panic attacks" "several mi's.rosacea, past gerd, arthritis Last Myocardial Infarction Date:: 2009 and 2014 History of Any Multi-Drug Resistant Organisms: None Reported Past Surgical History: Back Surgery, Coronary Bypass/CABG, Heart Catheterization With Stent Additional Past Surgical History / Comment(s): bypass 2010 at [facility], he had openheart and it was unsuccessfulll on one side so they had to stent it. pt stated he has a total of "10 stents", turp, lt cataract, colonoscopy/egd Past Anesthesia/Blood Transfusion Reactions: No Reported Reaction Date of Last Stent Placement:: 2009 Past Psychological History: Anxiety Smoking Status: Former smoker Past Alcohol Use History: None Reported Past Drug Use History: None Reported - Past Family History Father Additional Family Medical History / Comment(s): father had a cardica hx, unsure of what Brother(s) Additional Family Medical History / Comment(s): pt reports his brother to had a cardica hx Medications and Allergies Home Medications Medication Instructions Recorded Confirmed Type Metoprolol Tartrate [Lopressor] 25 mg PO BID 01/14/15 04/19/17 History Aspirin 325 mg PO DAILY tab 01/17/15 04/19/17 Rx Clopidogrel [Plavix] 75 mg PO DAILY #90 tab 01/17/15 04/19/17 Rx Temazepam [Restoril] 30 mg PO HS PRN 09/23/16 04/19/17 History Allergies Allergy/AdvReac Type Severity Reaction Status Date / Time levofloxacin [From Levaquin] Allergy Rash/Hives Verified 04/19/17 18:54 Physical Exam Vitals: Vital Signs Temp Pulse Resp BP Pulse Ox 04/20/17 11:32 78 18 150/83 96 04/20/17 08:42 88 12 148/70 99 04/20/17 07:16 93 16 180/82 99 04/20/17 06:42 80 18 148/66 98 04/20/17 04:00 81 18 157/74 98 04/20/17 00:51 77 18 138/63 96 04/19/17 23:06 71 18 128/62 96 04/19/17 22:33 98.3 F 04/19/17 22:11 85 18 171/90 99 04/19/17 19:15 78 18 144/80 97 04/19/17 18:57 146 H 18 149/88 97 04/19/17 17:42 100.1 F H 77 19 187/101 98 Intake and Output 04/19/17 04/20/17 04/20/17 22:59 06:59 14:59 Output Total 850 25 Balance -850 -25 Output: Stool 850 25 Other: Weight 79.832 kg GENERAL EXAM: Alert, pleasant, 82-year-old white male comfortable in no apparent distress. HEAD: Normocephalic/atraumatic. EYES: Normal reaction of pupils, equal size. Conjunctiva pink, sclera white. NOSE: Clear with pink turbinates. THROAT: No erythema or exudates. NECK: No masses, no JVD, no thyroid enlargement, no adenopathy. CHEST: No chest wall deformity. Symmetrical expansion. LUNGS: Equal air entry with no crackles, wheeze, rhonchi or dullness. CVS: Regular rate and rhythm, normal S1 and S2, no gallops, no murmurs, no rubs ABDOMEN: Soft, slightly tender over left lower quadrant and left upper quadrant. No hepatosplenomegaly, normal bowel sounds, no guarding or rigidity. EXTREMITIES: No clubbing, no edema, no cyanosis, 2+ pulses and upper and lower extremities. MUSCULOSKELETAL: Muscle strength and tone normal. SPINE: No scoliosis or deformity SKIN: No rashes CENTRAL NERVOUS SYSTEM: Alert and oriented -3. No focal deficits, tone is normal in all 4 extremities. PSYCHIATRIC: Alert and oriented -3. Appropriate affect. Intact judgment and insight. Results - Laboratory Findings CBC and BMP: 04/20/17 07:40 04/19/17 17:50 PT/INR, D-dimer PT 10.8 sec (9.0-12.0) 04/19/17 22:10 INR 1.1 (<1.2) 04/19/17 22:10 Abnormal lab findings: Abnormal Labs 04/19/17 04/19/17 04/19/17 17:50 17:50 17:50 RBC Hgb Hct Plt Count Lymphocytes # 0.8 L BUN 25 H Glucose 100 H Total Creatine Kinase 45 L 04/19/17 04/20/17 04/20/17 22:10 02:21 07:40 RBC 4.05 L 3.80 L 3.84 L Hgb 12.6 L 11.8 L 12.0 L Hct 38.1 L 36.2 L 36.3 L Plt Count 142 L 137 L Lymphocytes # 0.6 L 0.7 L 0.5 L BUN Glucose Total Creatine Kinase - Diagnostic Findings Additional studies: Abdomen/pelvis CT, and 12 EKG reviewed Assessment and Plan Plan: Assessment: #1. Acute blood loss anemia, secondary to acute GI bleeding. Patient presented after having a dozen episodes of dark and maroon-colored stools at home #2. History of diverticulosis #3. History of coronary artery disease, status post coronary artery bypass grafting and coronary artery stenting, on aspirin and Plavix #4. Chronic A. fib, not on any chronic anticoagulation other than aspirin and Plavix. Had previously been maintained on Coumadin, however it was discontinued due to patient's noncompliance #5. Ischemic cardiomyopathy, with EF of 35 and 40% from echo on #6. Hyperlipidemia, hypertension #7. Mild dementia #8. History of ascending aortic aneurysm, 4.2 cm #9. History of COPD, currently stable, #10. History of nicotine dependence, in remission Plan: Continue Protonix, patient is nothing by mouth, will start 0.9 normal saline at 69 per hour. He is awaiting to start prep for tomorrow's EGD and colonoscopy. He remains hemodynamically stable, denies any chest pain, denies any dyspnea. Has not had any further episodes of bloody bowel movements since last night. Patient is stable for transfer to regular medical surgical floor. Continue to follow I performed a history & physical examination of the patient and discussed their management with my nurse practitioner, Nalini Hair. I reviewed the nurse practitioner's note and agree with the documented findings and plan of care. Lung sounds are clear. The findings and the impression was discussed with the patient. I attest to the documentation by the nurse practitioner. Time with Patient: Greater than 30 <Dany Gardner - Last Filed: 04/20/17 17:20> Physical Exam Vitals: Vital Signs Temp Pulse Pulse Resp BP BP Pulse Ox 04/20/17 15:00 97.9 F 86 14 140/96 95 04/20/17 14:26 77 14 163/82 96 04/20/17 13:01 72 18 152/80 96 04/20/17 11:32 78 18 150/83 96 04/20/17 08:42 88 12 148/70 99 04/20/17 07:16 93 16 180/82 99 04/20/17 06:42 80 18 148/66 98 04/20/17 04:00 81 18 157/74 98 04/20/17 00:51 77 18 138/63 96 04/19/17 23:06 71 18 128/62 96 04/19/17 22:33 98.3 F 04/19/17 22:11 85 18 171/90 99 04/19/17 19:15 78 18 144/80 97 04/19/17 18:57 146 H 18 149/88 97 04/19/17 17:42 100.1 F H 77 19 187/101 98 Intake and Output 04/20/17 04/20/17 04/20/17 06:59 14:59 22:59 Output Total 25 Balance -25 Output: Stool 25 Other: Voiding Method Bedside Commode Results - Laboratory Findings CBC and BMP: 04/20/17 07:40 04/19/17 17:50 PT/INR, D-dimer PT 10.8 sec (9.0-12.0) 04/19/17 22:10 INR 1.1 (<1.2) 04/19/17 22:10 Abnormal lab findings: Abnormal Labs 04/19/17 04/19/17 04/19/17 17:50 17:50 17:50 RBC Hgb Hct Plt Count Lymphocytes # 0.8 L BUN 25 H Glucose 100 H Total Creatine Kinase 45 L 04/19/17 04/20/17 04/20/17 22:10 02:21 07:40 RBC 4.05 L 3.80 L 3.84 L Hgb 12.6 L 11.8 L 12.0 L Hct 38.1 L 36.2 L 36.3 L Plt Count 142 L 137 L Lymphocytes # 0.6 L 0.7 L 0.5 L BUN Glucose Total Creatine Kinase Assessment and Plan Plan: The patient is stable. [facility] This is a joint evaluation was done along with a nurse practitioner. The patient be kept nothing by mouth in preparation for a EGD and colonoscopy tomorrow. Hemodynamically stable. No need to come to the ICU. The patient can be downgraded to a MedSurg unit. GI is on the case. We'll continue to follow.
[2017-04-20] MEDS ORDERED: MORPHINE SULFATE 4 MG/ML SYRINGE IV PRN (13:27)
--- NOTE | 2017-04-20 13:31 | P.HPIM ---
History of Present Illness H&P Date: 04/20/17 This is a 82-year-old gentleman with past medical history noted below significant for coronary artery disease maintained on Plavix and aspirin at home and prior history of diverticulitis who presented to the hospital with dark and tarry stool. Patient said that for the past couple of days he noted that his stool is getting darker and had few bowel movement that he describes as tarry with bright red blood and some blood clots. He said that he had some abdominal pain that he described was mostly in the left lower quadrant. He denies any epigastric pain. No nausea or vomiting. No similar symptoms in the past. He was concerned that he may have be another acute diverticulitis episode and decided to come to the emergency room. He was evaluated in the emergency room and was found to be hemodynamically stable. Hemoglobin within acceptable range. Patient was started on IV Protonix and is currently admitted to the hospital for further evaluation. He was seen by GI. Review of Systems Review of system: 14 points review of systems were obtained and were negative except to what were mentioned in the HPI. Past Medical History Past Medical History: Atrial Fibrillation, Chest Pain / Angina, Heart Failure, COPD, Dementia, Hyperlipidemia, Hypertension, Myocardial Infarction ([place]), Pneumonia Additional Past Medical History / Comment(s): aaa not sure of the size, diverticulosis, lower bridge,"occ panic attacks" "several mi's.rosacea, past gerd, arthritis Last Myocardial Infarction Date:: 2009 and 2014 History of Any Multi-Drug Resistant Organisms: None Reported Past Surgical History: Back Surgery, Coronary Bypass/CABG, Heart Catheterization With Stent Additional Past Surgical History / Comment(s): bypass 2010 at [facility], he had openheart and it was unsuccessfulll on one side so they had to stent it. pt stated he has a total of "10 stents", turp, lt cataract, colonoscopy/egd Past Anesthesia/Blood Transfusion Reactions: No Reported Reaction Date of Last Stent Placement:: 2009 Past Psychological History: Anxiety Smoking Status: Former smoker Past Alcohol Use History: None Reported Past Drug Use History: None Reported - Past Family History Father Additional Family Medical History / Comment(s): father had a cardica hx, unsure of what Brother(s) Additional Family Medical History / Comment(s): pt reports his brother to had a cardica hx Medications and Allergies Home Medications Medication Instructions Recorded Confirmed Type Metoprolol Tartrate [Lopressor] 25 mg PO BID 01/14/15 04/19/17 History Aspirin 325 mg PO DAILY tab 01/17/15 04/19/17 Rx Clopidogrel [Plavix] 75 mg PO DAILY #90 tab 01/17/15 04/19/17 Rx Temazepam [Restoril] 30 mg PO HS PRN 09/23/16 04/19/17 History Allergies Allergy/AdvReac Type Severity Reaction Status Date / Time levofloxacin [From Levaquin] Allergy Rash/Hives Verified 04/19/17 18:54 Physical Exam Vitals: Vital Signs Temp Pulse Resp BP Pulse Ox 04/20/17 13:01 72 18 152/80 96 04/20/17 11:32 78 18 150/83 96 04/20/17 08:42 88 12 148/70 99 04/20/17 07:16 93 16 180/82 99 04/20/17 06:42 80 18 148/66 98 04/20/17 04:00 81 18 157/74 98 04/20/17 00:51 77 18 138/63 96 04/19/17 23:06 71 18 128/62 96 04/19/17 22:33 98.3 F 04/19/17 22:11 85 18 171/90 99 04/19/17 19:15 78 18 144/80 97 04/19/17 18:57 146 H 18 149/88 97 04/19/17 17:42 100.1 F H 77 19 187/101 98 Intake and Output 04/19/17 04/20/17 04/20/17 22:59 06:59 14:59 Output Total 850 25 Balance -850 -25 Output: Stool 850 25 Other: Weight 79.832 kg General: The patient is awake and alert, in no distress Eye: there is normal conjunctiva bilaterally. Neck: The neck is supple, there is no JVD. Cardiovascular: Normal S1-S2, no S3-S4, no murmurs. Respiratory: Lungs clear to auscultation bilaterally Gastrointestinal: Abdomen is soft, nontender Musculoskeletal: There is no pedal edema. Neurological:. Speech is normal. Skin: Skin is warm and dry Results CBC & Chem 7: 04/20/17 07:40 04/19/17 17:50 Labs: Abnormal Lab Results - Last 24 Hours (Table) 04/19/17 04/19/17 04/19/17 Range/Units 17:50 17:50 17:50 RBC (4.30-5.90) m/uL Hgb (13.0-17.5) gm/dL Hct (39.0-53.0) % Plt Count (150-450) k/uL Lymphocytes # 0.8 L (1.0-4.8) k/uL BUN 25 H (9-20) mg/dL Glucose 100 H (74-99) mg/dL Total Creatine Kinase 45 L (55-170) U/L 04/19/17 04/20/17 04/20/17 Range/Units 22:10 02:21 07:40 RBC 4.05 L 3.80 L 3.84 L (4.30-5.90) m/uL Hgb 12.6 L 11.8 L 12.0 L (13.0-17.5) gm/dL Hct 38.1 L 36.2 L 36.3 L (39.0-53.0) % Plt Count 142 L 137 L (150-450) k/uL Lymphocytes # 0.6 L 0.7 L 0.5 L (1.0-4.8) k/uL BUN (9-20) mg/dL Glucose (74-99) mg/dL Total Creatine Kinase (55-170) U/L Microbiology - Last 24 Hours (Table) 04/19/17 17:50 Stool Culture - Preliminary Stool Thrombosis Risk Factor Assmnt - Choose All That Apply Any of the Below Risk Factors Present?: Yes Each Factor Represents 1 point: Abnormal pulmonary function (COPD), Obesity ( BMI >25) Other Risk Factors: Yes Each Risk Factor Represents 3 Points: Age 75 years or older Other congenital or acquired thrombophilia - If yes, enter type in comment: No Thrombosis Risk Factor Assessment Total Risk Factor Score: 5 Thrombosis Risk Factor Assessment Level: High Risk Assessment and Plan Assessment: 1. Acute GI bleed most likely upper. Patient is on aspirin, Plavix and takes Aleve p.m. He was seen and evaluated by GI and plan for upper and lower endoscopy in the morning. Patient is hemodynamically stable. Hemoglobin is stable as well. 2. History of coronary artery disease with prior stent placement maintained on aspirin and Plavix at home currently on hold given GI bleed 3. Chronic atrial fibrillation: Heart rate well controlled on metoprolol 4. Essential hypertension: Blood pressure well-controlled 5. Mild cognitive impairment/dementia 6. History of diverticulitis Today, I reviewed his medication list and lab work results. Continue IV Protonix daily. Appreciate [employer] consultant's recommendations. Repeat lab work in the morning. Nothing by mouth after midnight for endoscopy
[2017-04-20] MEDS ORDERED: PEG 3350-NA SULF,BICARB,CL/KCL 4,000 ML BOTTLE PO ONE (15:00)
[2017-04-20 19:59] LABS: Basophils % (A) 0 %; Eosinophils # (A) 0.1 k/uL (0-0.7); Eosinophils % (A) 2 %; HCT 36.4 % (39.0-53.0); HGB 12.2 gm/dL (13.0-17.5); Lymphocytes # (A) 0.5 k/uL (1.0-4.8); Lymphocytes % (A) 10 %; MCH 31.5 pg (25.0-35.0); MCHC 33.6 g/dL (31.0-37.0); MCV 93.9 fL (80.0-100.0); Mean Platelet Volume 7.2; Monocytes # (A) 0.5 k/uL (0-1.0); Monocytes % (A) 9 %; Neutrophils # (A) 3.8 k/uL (1.3-7.7); Neutrophils % (A) 75 %; Platelet Count 168 k/uL (150-450); RBC 3.88 m/uL (4.30-5.90); RDW 13.2 % (11.5-15.5); WBC 5.1 k/uL (3.8-10.6)
[2017-04-20] MEDS: TEMAZEPAM 30 MG CAP PO PRN (22:59)
[2017-04-21] MEDS: METOPROLOL TARTRATE 25 MG TAB PO SCH ×2 (07:50→20:35)
[2017-04-21] MEDS: PANTOPRAZOLE 40 MG/10 ML VIAL IV SCH (07:50)
[2017-04-21 09:26] LABS: Basophils % (A) 0 %; Eosinophils # (A) 0.1 k/uL (0-0.7); Eosinophils % (A) 3 %; HCT 35.8 % (39.0-53.0); HGB 12.2 gm/dL (13.0-17.5); Lymphocytes # (A) 0.6 k/uL (1.0-4.8); Lymphocytes % (A) 12 %; MCH 31.7 pg (25.0-35.0); MCHC 34.1 g/dL (31.0-37.0); MCV 93.2 fL (80.0-100.0); Mean Platelet Volume 7.5; Monocytes # (A) 0.3 k/uL (0-1.0); Monocytes % (A) 7 %; Neutrophils # (A) 3.5 k/uL (1.3-7.7); Neutrophils % (A) 75 %; Platelet Count 168 k/uL (150-450); RBC 3.85 m/uL (4.30-5.90); RDW 13.2 % (11.5-15.5); WBC 4.7 k/uL (3.8-10.6)
[2017-04-21 09:37] LABS: Albumin 3.5 g/dL (3.5-5.0); Potassium 4.1 mmol/L (3.5-5.1); Total Protein 5.9 g/dL (6.3-8.2)
--- NOTE | 2017-04-21 11:08 | P.PN ---
Objective - Vital Signs Vital signs: Vital Signs Temp 97.7 F 04/21/17 07:00 Pulse 85 04/21/17 07:00 Resp 18 04/21/17 07:00 BP 136/70 04/21/17 07:00 Pulse Ox 94 L 04/21/17 07:00 Intake & Output 04/20/17 04/21/17 04/21/17 18:59 06:59 18:59 Other: Voiding Method Bedside Commode Bedside Commode # Voids 4 # Bowel Movements 4 - Labs CBC & Chem 7: 04/21/17 07:50 04/21/17 07:50 Labs: Abnormal Lab Results - Last 24 Hours (Table) 04/20/17 04/21/17 04/21/17 Range/Units 19:35 07:50 07:50 RBC 3.88 L 3.85 L (4.30-5.90) m/uL Hgb 12.2 L 12.2 L (13.0-17.5) gm/dL Hct 36.4 L 35.8 L (39.0-53.0) % Lymphocytes # 0.5 L 0.6 L (1.0-4.8) k/uL Total Protein 5.9 L (6.3-8.2) g/dL Assessment and Plan (1) Acute GI bleeding Current Visit: Yes Status: Acute Code(s): K92.2 - GASTROINTESTINAL HEMORRHAGE, UNSPECIFIED SNOMED Code(s): 31972162 (2) Colon, diverticulosis Current Visit: Yes Status: Acute Code(s): K57.30 - DVRTCLOS OF LG INT W/O PERFORATION OR ABSCESS W/O BLEEDING SNOMED Code(s): 052867512 (3) Acute blood loss anemia Current Visit: Yes Status: Acute Code(s): D62 - ACUTE POSTHEMORRHAGIC ANEMIA SNOMED Code(s): 658566061
[2017-04-21] MEDS: ACETAMINOPHEN TAB 325 MG TAB PO PRN (11:15)
--- NOTE | 2017-04-21 11:33 | P.PN ---
Subjective Patient is doing well today. He continues to have black tarry stools with blood clots after finishing his code likely preparation. Objective - Vital Signs Vital signs: Vital Signs Temp 97.7 F 04/21/17 07:00 Pulse 85 04/21/17 07:00 Resp 18 04/21/17 07:00 BP 136/70 04/21/17 07:00 Pulse Ox 94 L 04/21/17 07:00 Intake & Output 04/20/17 04/21/17 04/21/17 18:59 06:59 18:59 Other: Voiding Method Bedside Commode Bedside Commode # Voids 4 # Bowel Movements 4 - Exam General: The patient is awake and alert, in no distress Eye: there is normal conjunctiva bilaterally. Neck: The neck is supple, there is no JVD. Cardiovascular: Normal S1-S2, no S3-S4, no murmurs. Respiratory: Lungs clear to auscultation bilaterally Gastrointestinal: Abdomen is soft, nontender Musculoskeletal: There is no pedal edema. Neurological:. Speech is normal. Skin: Skin is warm and dry - Labs CBC & Chem 7: 04/21/17 07:50 04/21/17 07:50 Labs: Abnormal Lab Results - Last 24 Hours (Table) 04/20/17 04/21/17 04/21/17 Range/Units 19:35 07:50 07:50 RBC 3.88 L 3.85 L (4.30-5.90) m/uL Hgb 12.2 L 12.2 L (13.0-17.5) gm/dL Hct 36.4 L 35.8 L (39.0-53.0) % Lymphocytes # 0.5 L 0.6 L (1.0-4.8) k/uL Total Protein 5.9 L (6.3-8.2) g/dL Assessment and Plan Assessment: 1. Acute GI bleed most likely upper. Patient is on aspirin, Plavix and takes Aleve p.m at home. He was seen and evaluated by GI and plan for upper and lower endoscopy this afternoon. Patient is hemodynamically stable. Hemoglobin is stable as well. 2. History of coronary artery disease with prior stent placement maintained on aspirin and Plavix at home currently on hold given GI bleed 3. Chronic atrial fibrillation: Heart rate well controlled on metoprolol 4. Essential hypertension: Blood pressure well-controlled 5. Mild cognitive impairment/dementia 6. History of diverticulitis Today, I reviewed his medication list and lab work results. Continue IV Protonix daily. Appreciate [employer] consultant's recommendations. Repeat lab work in the morning. Awaiting EGD and colonoscopy this afternoon.
--- NOTE | 2017-04-21 14:45 | P.PN ---
Subjective Progress Note Date: 04/21/17 Principal diagnosis: Acute GI bleed Mr. Garcia is a 82-year-old white male patient of Dr. Ward, who presented to the emergency department on 04/19/2017 at 1740 after having a dozen episodes of dark and bright red bowel movements, initially more dark, and smaller amounts, progressing to more red in nature. Patient did have some diffuse abdominal pain , and pain along the left rib margin. He thinks he may have had previous scopes , but he is unsure. History of hemorrhoids in the past. Patient does have underlying history of mild dementia. Complained of some lightheadedness, but denied chest pain, shortness of breath or syncope. Past medical history is positive for coronary artery disease, history of coronary bypass grafting, coronary stents, chronic A. fib, not on any anti-coagulation other than aspirin and Plavix, CHF, COPD, hyperlipidemia, hypertension, myocardial infarction, pneumonia. Patient thinks he has a thoracic aortic aneurysm, is pointing to his chest area. Unsure of the size. Medical records from previous admission state he has a AAA of 4.2 cm. Other history includes diverticulosis, GERD, anxiety, previous nicotine dependence. CT of abdomen and pelvis not show any acute process. Twelve-lead EKG showed atrial fibrillation with a rate of 80 BPM. Admission hemoglobin was 13.9, this morning is down to 12.0. White count was normal, at 6.1, PT/INR are 10.8 and 1.1 respectively. Normal electrolyte panel, B1 is 25, creatinine is 1.0. Patient was given Sandostatin and Protonix in the ER last night. Sandostatin is now discontinued. Patient had one episode of bowel movement which was maroon in appearance. Patient received a bolus of 0.9 normal saline, his IV fluids were hep-locked. We will restart the IV fluids at 0.9 normal saline at 60 ML per hour. During the time of evaluation patient is awake, alert, does not appear to be in any acute distress , he denies chest pain, shortness of breath. He is on 2 L per nasal cannula with O2 sat 99%. He is maintaining normal vitals, was a little hypertensive last night, for which she was given a dose of labetalol. This morning his blood pressure is 140/70, heart rate is 88, patient is afebrile. Patient's lung sounds are clear. No further episodes of GI bleeding this morning. He was seen in consultation by the GI service was planned and on EGD and colonoscopy tomorrow. Pulmonary/critical care standpoint patient is stable for placement on gen. medical/surgical floor. On 04/21/2017 patient seen in follow-up on medical surgical floor. He remains hemodynamically stable, completed his colonoscopy prep, awaiting EGD and colonoscopy at 3 PM this afternoon. Denies any chest pain, denies any dyspnea. Denies any abdominal discomfort. Lung sounds are clear, he is on room air. Today's hemoglobin is 12.2, electrolyte and renal profile are all within normal limits. He has been nothing by mouth since midnight. She has not required any blood transfusions. From pulmonary/critical care standpoint patient remains stable, we will sign off at this time, and see the patient on as needed basis. Objective - Vital Signs Vital signs: Vital Signs Temp 97.7 F 04/21/17 07:00 Pulse 85 04/21/17 07:00 Resp 18 04/21/17 07:00 BP 136/70 04/21/17 07:00 Pulse Ox 94 L 04/21/17 07:00 Intake & Output 04/20/17 04/21/17 04/21/17 18:59 06:59 18:59 Other: Voiding Method Bedside Commode Bedside Commode # Voids 4 2 # Bowel Movements 4 - Exam GENERAL EXAM: Alert, pleasant, 82-year-old white male comfortable in no apparent distress. HEAD: Normocephalic/atraumatic. EYES: Normal reaction of pupils, equal size. Conjunctiva pink, sclera white. NOSE: Clear with pink turbinates. THROAT: No erythema or exudates. NECK: No masses, no JVD, no thyroid enlargement, no adenopathy. CHEST: No chest wall deformity. Symmetrical expansion. LUNGS: Equal air entry with no crackles, wheeze, rhonchi or dullness. CVS: Regular rate and rhythm, normal S1 and S2, no gallops, no murmurs, no rubs ABDOMEN: Soft, slightly tender over left lower quadrant and left upper quadrant. No hepatosplenomegaly, normal bowel sounds, no guarding or rigidity. EXTREMITIES: No clubbing, no edema, no cyanosis, 2+ pulses and upper and lower extremities. MUSCULOSKELETAL: Muscle strength and tone normal. SPINE: No scoliosis or deformity SKIN: No rashes CENTRAL NERVOUS SYSTEM: Alert and oriented -3. No focal deficits, tone is normal in all 4 extremities. PSYCHIATRIC: Alert and oriented -3. Appropriate affect. Intact judgment and insigh - Labs CBC & Chem 7: 04/21/17 07:50 04/21/17 07:50 Labs: Abnormal Lab Results - Last 24 Hours (Table) 04/20/17 04/21/17 04/21/17 Range/Units 19:35 07:50 07:50 RBC 3.88 L 3.85 L (4.30-5.90) m/uL Hgb 12.2 L 12.2 L (13.0-17.5) gm/dL Hct 36.4 L 35.8 L (39.0-53.0) % Lymphocytes # 0.5 L 0.6 L (1.0-4.8) k/uL Total Protein 5.9 L (6.3-8.2) g/dL Assessment and Plan Plan: Assessment: #1. Acute blood loss anemia, secondary to acute GI bleeding. Patient presented after having a dozen episodes of dark and maroon-colored stools at home #2. History of diverticulosis #3. History of coronary artery disease, status post coronary artery bypass grafting and coronary artery stenting, on aspirin and Plavix #4. Chronic A. fib, not on any chronic anticoagulation other than aspirin and Plavix. Had previously been maintained on Coumadin, however it was discontinued due to patient's noncompliance #5. Ischemic cardiomyopathy, with EF of 35 and 40% from echo on #6. Hyperlipidemia, hypertension #7. Mild dementia #8. History of ascending aortic aneurysm, 4.2 cm #9. History of COPD, currently stable, #10. History of nicotine dependence, in remission Plan: Patient remains hemodynamically stable, he has not required any blood transfusions. He is awaiting his EGD and colonoscopy at 3 PM this afternoon. Denies any chest pain, denies any dyspnea. From pulmonary/critical care standpoint patient remains stable, we will see the patient on as-needed basis. I performed a history & physical examination of the patient and discussed their management with my nurse practitioner, Nalini Hair. I reviewed the nurse practitioner's note and agree with the documented findings and plan of care. Lung sounds are clear. The findings and the impression was discussed with the patient. I attest to the documentation by the nurse practitioner. Time with Patient: Less than 30
[2017-04-21] MEDS ORDERED: LIDOCAINE 1% INJ 10MG/ML (20 ML MDV) ONE (16:22)
[2017-04-21] MEDS ORDERED: PROPOFOL 10 MG/ML 20 ML VIAL IV ONE (16:22)
[2017-04-21] MEDS ORDERED: LACTATED RINGERS 1,000 ML IV ONE (16:46)
--- NOTE | 2017-04-21 17:23 | P.PCN ---
Date of Procedure: 04/21/17 Procedure(s) Performed: Procedures: Esophagogastroduodenoscopy and biopsy. Total colonoscopy. Preoperative diagnosis: GI bleeding. Postoperative diagnosis: 1. Small sliding hiatal hernia with no obvious esophagitis or complicated reflux disease. 2. Mild antral gastritis and duodenitis with no active bleeding. 3. Colonoscopy reveals diverticulosis with no evidence of bleeding at the time of this exam, most likely source of bleeding. Preparation: GoLYTELY prep. Sedation: Was provided by anesthesia. Brief clinical history: The patient is an 82-year-old male with past medical history of atrial fibrillation, COPD, heart failure, possible AAA, colonic diverticulosis, hypertension, hyperlipidemia, IA, CAD/CABG/PCI multiple stents maintained on aspirin Plavix, and anxiety. Patient presented with lower abdominal pain with mixed bloody bowel movements bright red sometimes black in nature for the prior 2 days with intermittent lightheadedness; lower abdominal pain has been present intermittently for more than a year. Patient had several bowel movements over the prior 24 hours to admission including one the morning of that were blood-tinged. No history GI bleed. CT abdomen and pelvis reported no acute process. Denies chills, weight loss, hematemesis but appetite has decreased over the last year intermittent episodes of reflux indigestion. T -max 100.1. Admission hemoglobin 13.9 presently 12.2. Platelet 164. INR 1.1. Hemoccult stool positive. Clostridium difficile negative. BUN 25. Creatinine 1.0. The details are summarized in the history and physical and dictated consultations and progress notes. Procedure: With the patient on his left lateral decubitus position and after informed consent and adequate sedation, I passed the Olympus-GIF 160 video upper endoscope through the cricopharyngeus down the esophagus. The esophagus appeared healthy with no ulcers, erosions, mucosal tears or varices. There were no strictures. GE junction was around 40-41 cm from the incisors and there was a small sliding hiatal hernia. The endoscope was then passed into the stomach which was insufflated with air and inspected in detail including the retroflex view in the cardia. There was some mottling and erythema and few erosions in the antrum and immediate prepyloric area but no ulcers or bleeding. Pyloric channel did not show any ulcers. Duodenal bulb showed erythema and friability but no ulcers, erosions or bleeding post bulbar area and descending duodenum appeared normal. I obtained biopsies from the antrum then the endoscope was withdrawn and we proceeded with the colonoscopy. Perianal area did not show any fissures or fistulas. There were no masses felt on digital rectal examination. The Olympus CFQ 160L video colonoscope was then inserted in the rectum in the usual fashion and advanced to the cecum. There was significant diverticular disease mostly on the left side and sigmoid with only a few smaller orifices seen scattered on the right side. There was no evidence of acute diverticulitis or strictures. The mucosa appeared healthy. There were no angiodysplasias, polyps or tumors or any evidence of bleeding at the time of this exam. I retroflexed the endoscope in the rectum before the endoscope was withdrawn. The patient tolerated the procedure well. Plan: The patient and his family were reassured. It is likely that the bleeding is related to diverticulosis and has subsided spontaneously. Will allow regular diet and monitor his blood counts closely. We will continue to follow with you with interest.
[2017-04-21] MEDS: TEMAZEPAM 30 MG CAP PO PRN (22:12)
[2017-04-22 07:31] VITALS: BP 142/67; PULSE 81; RESP 16; TEMP 97.1
[2017-04-22] MEDS: METOPROLOL TARTRATE 25 MG TAB PO SCH (08:22)
[2017-04-22] MEDS: PANTOPRAZOLE 40 MG/10 ML VIAL IV SCH (08:22)
[2017-04-22 08:58] LABS: Basophils % (A) 0 %; Eosinophils # (A) 0.1 k/uL (0-0.7); Eosinophils % (A) 2 %; HCT 34.4 % (39.0-53.0); HGB 11.8 gm/dL (13.0-17.5); Lymphocytes # (A) 0.6 k/uL (1.0-4.8); Lymphocytes % (A) 14 %; MCH 31.7 pg (25.0-35.0); MCHC 34.3 g/dL (31.0-37.0); MCV 92.4 fL (80.0-100.0); Mean Platelet Volume 7.5; Monocytes # (A) 0.4 k/uL (0-1.0); Monocytes % (A) 9 %; Neutrophils % (A) 71 %; Platelet Count 145 k/uL (150-450); RBC 3.72 m/uL (4.30-5.90); RDW 13.2 % (11.5-15.5); WBC 4.3 k/uL (3.8-10.6)
[2017-04-22 09:29] LABS: ALT 26 U/L (21-72); AST 27 U/L (17-59); Albumin 3.4 g/dL (3.5-5.0); Alkaline Phosphatase 48 U/L (38-126); Anion Gap 8 mmol/L; Blood Urea Nitrogen 13 mg/dL (9-20); Calcium 9.1 mg/dL (8.4-10.2); Carbon Dioxide 25 mmol/L (22-30); Chloride 103 mmol/L (98-107); Glucose 73 mg/dL (74-99); Potassium 4.2 mmol/L (3.5-5.1); Sodium 136 mmol/L (137-145); Total Bilirubin 1.1 mg/dL (0.2-1.3); Total Protein 5.7 g/dL (6.3-8.2)
--- NOTE | 2017-04-22 09:40 | P.PN ---
Subjective Progress Note Date: 04/22/17 Principal diagnosis: GI bleed 82-year-old male admitted with acute lower GI bleed and abdominal pain status post EGD colonoscopy yesterday with findings of colonic diverticulosis EGD unremarkable. Feels well. Hemoglobin 11.8 this morning. Tolerating regular diet. Abdominal pain improved. Afebrile. Objective - Vital Signs Vital signs: Vital Signs Temp 97.1 F L 04/22/17 07:00 Pulse 81 04/22/17 07:00 Resp 16 04/22/17 07:00 BP 142/67 04/22/17 07:00 Pulse Ox 96 04/22/17 07:00 Intake & Output 04/21/17 04/22/17 04/22/17 18:59 06:59 18:59 Intake Total 100 Balance 100 Intake: IV 100 Other: # Voids 2 1 # Bowel Movements 1 - Exam General appearance: The patient is alert, oriented, in no acute distress. HET: Head is normocephalic and atraumatic. Pupils are equal and reactive. Oropharynx is clear without lesions. Neck: Supple without lymphadenopathy. Trachea midline. Heart: S1 S2. Regular rate and rhythm. Lungs: No crackles or wheezes are heard. Abdomen: Soft, nontender, nondistended with bowel sounds. No peritoneal signs. No palpable organomegaly or masses. Extremities: Normal skin color and turgor. No cyanosis, rash, ulceration, clubbing, or edema. Radial and pedal pulses are 2/4 bilaterally. Neurological: No focal deficits. Strength and sensation are grossly intact. - Labs CBC & Chem 7: 04/22/17 07:48 04/21/17 07:50 Labs: Abnormal Lab Results - Last 24 Hours (Table) 04/21/17 04/22/17 Range/Units 07:50 07:48 RBC 3.72 L (4.30-5.90) m/uL Hgb 11.8 L (13.0-17.5) gm/dL Hct 34.4 L (39.0-53.0) % Plt Count 145 L (150-450) k/uL Lymphocytes # 0.6 L (1.0-4.8) k/uL Total Protein 5.9 L (6.3-8.2) g/dL Assessment and Plan (1) Acute GI bleeding Narrative/Plan: Acute lower GI bleed most likely secondary to colonic diverticular bleed Current Visit: Yes Status: Acute Code(s): K92.2 - GASTROINTESTINAL HEMORRHAGE, UNSPECIFIED SNOMED Code(s): 94154525 (2) Colon, diverticulosis Current Visit: Yes Status: Acute Code(s): K57.30 - DVRTCLOS OF LG INT W/O PERFORATION OR ABSCESS W/O BLEEDING SNOMED Code(s): 556516439 (3) Acute blood loss anemia Current Visit: Yes Status: Acute Code(s): D62 - ACUTE POSTHEMORRHAGIC ANEMIA SNOMED Code(s): 151523741 Plan: 1. Discharge per medicine. Avoid constipation. Diet as tolerated. Assessment and plan of care discussed with Dr. Pérez
--- NOTE | 2017-04-22 13:24 | P.DS ---
Providers Date of admission: 04/19/17 22:01 Expected date of discharge: 04/22/17 Attending physician: Fanny Womack Consults: 04/19/17 22:01 Consult Physician Urgent Consulting Provider: Dany Gardner Consult Reason/Comments: icu mgmt Do you want consulting provider notified?: Already Contacted Consult Physician Urgent Consulting Provider: Nathan Keane Consult Reason/Comments: GI Bleed Do you want consulting provider notified?: Yes Primary care physician: Noy Ward Hospital Course: Discharge diagnosis 1. Acute lower GI bleed secondary to colonic diverticular bleed. Status post EGD and colonoscopy showing a small hiatal hernia, mild antral gastritis, duodenitis and diverticulosis. No active bleeding on exam. Case discussed with GI service. Plavix has been discontinued. Aspirin was on hold during this admission. He is aspirin will be decreased to 81 mg daily. We'll have him follow up with his produce sorter in 1 week to assess when he can resume his Plavix and aspirin. 2. History of coronary artery disease with prior stent placement maintained on aspirin and Plavix at home currently on hold given GI bleed. Patient reports cardiac stents placed in either 2009 or 2014 3. Chronic atrial fibrillation: Heart rate well controlled on metoprolol 4. Essential hypertension: Blood pressure well-controlled 5. Mild cognitive impairment/dementia 6. History of diverticulitis Hospital course This is a 82-year-old gentleman with past medical history noted below significant for coronary artery disease maintained on Plavix and aspirin at home and prior history of diverticulitis who presented to the hospital with dark and tarry stool. Patient said that for the past couple of days he noted that his stool is getting darker and had few bowel movement that he describes as tarry with bright red blood and some blood clots. He said that he had some abdominal pain that he described was mostly in the left lower quadrant. He denies any epigastric pain. No nausea or vomiting. No similar symptoms in the past. He was concerned that he may have be another acute diverticulitis episode and decided to come to the emergency room. He was evaluated in the emergency room and was found to be hemodynamically stable. Hemoglobin within acceptable range. Patient was started on IV Protonix and is currently admitted to the hospital for further evaluation. He was seen by GI. Patient was seen evaluated by GI service. Underwent colonoscopy and EGD showing a small hiatal hernia, mild antral gastritis, duodenitis and diverticulosis. No active bleeding on exam. Likely symptoms related to a diverticular bleed. Patient's Plavix discontinued. Aspirin decreased to 81 mg daily. There is also evidence of antral gastritis and rhinitis. We'll continue and omeprazole 20 mg daily. Patient will follow-up with his PCP in 1 week. We'll follow up with cardiology in 1 week as well to discuss when to resume a full aspirin and Plavix. Patient's symptoms have improved. He is medically stable for discharge. Hemoglobin at discharge is 11.8 I performed an examination of the patient and discussed their management with the physician Dictaphone Transcriber. I have reviewed the Physician Dictaphone Transcriber's notes and agree with the documented findings and plan of care Patient Condition at Discharge: Stable Plan - Discharge Summary Discharge Rx Participant: No New Discharge Prescriptions: New Aspirin EC [Ecotrin Low Dose] 81 mg PO DAILY #30 tablet. Continue Metoprolol Tartrate [Lopressor] 25 mg PO BID Temazepam [Restoril] 30 mg PO HS PRN PRN Reason: Insomnia Discontinued Aspirin 325 mg PO DAILY tab Clopidogrel [Plavix] 75 mg PO DAILY #90 tab Discharge Medication List Metoprolol Tartrate [Lopressor] 25 mg PO BID 01/14/15 [History] Temazepam [Restoril] 30 mg PO HS PRN 09/23/16 [History] Aspirin EC [Ecotrin Low Dose] 81 mg PO DAILY #30 tablet. 04/22/17 [Rx] Follow up Appointment(s)/Referral(s): Noy Ward MD [Primary Care Provider] - 1 Week [facility], [NON-STAFF] - Patient Instructions/Handouts: Gastrointestinal Bleeding (DC), Diverticulosis ( DC) Activity/Diet/Wound Care/Special Instructions: Cardiac diet. Activity as tolerated. Patient to follow up in 1 week with his produce sorter to address when he can restart plavix and full aspirin Discharge Disposition: HOME SELF-CARE
== END 2017-04-22 15:29 | disposition home health service (06) | DRG 378 ==
LOC: EC 17:40 → 6ICU 22:01 → 4MS4W 04-20 13:02
PROVIDERS: ADMIT Internal Medicine; ATTEND Internal Medicine
PROC: 0DB68ZX Excision of Stomach, Via Natural or Artificial Opening Endoscopic, Diagnostic (ICD-10-PCS; principal; 2017-04-21 16:50)
PROC: 0DJD8ZZ Inspection of Lower Intestinal Tract, Via Natural or Artificial Opening Endoscopic (ICD-10-PCS; 2017-04-21 16:50)
DX: K57.31 Diverticulosis of large intestine without perforation or abscess with bleeding (principal); D62 Acute posthemorrhagic anemia; I48.2 Chronic atrial fibrillation; I11.0 Hypertensive heart disease with heart failure; I50.9 Heart failure, unspecified; I71.2 Thoracic aortic aneurysm, without rupture; F03.90 Unspecified dementia, unspecified severity, without behavioral disturbance, psychotic disturbance, mood disturbance, and anxiety; E78.5 Hyperlipidemia, unspecified; F41.0 Panic disorder [episodic paroxysmal anxiety]; I25.10 Atherosclerotic heart disease of native coronary artery without angina pectoris; I25.2 Old myocardial infarction; I25.5 Ischemic cardiomyopathy; J44.9 Chronic obstructive pulmonary disease, unspecified; K21.9 Gastro-esophageal reflux disease without esophagitis; K29.70 Gastritis, unspecified, without bleeding; K29.80 Duodenitis without bleeding; K44.9 Diaphragmatic hernia without obstruction or gangrene; F17.201 Nicotine dependence, unspecified, in remission; K64.9 Unspecified hemorrhoids; L71.9 Rosacea, unspecified; M19.90 Unspecified osteoarthritis, unspecified site; Z79.02 Long term (current) use of antithrombotics/antiplatelets; Z79.82 Long term (current) use of aspirin; Z79.899 Other long term (current) drug therapy; Z88.1 Allergy status to other antibiotic agents; Z95.1 Presence of aortocoronary bypass graft; Z95.5 Presence of coronary angioplasty implant and graft
CPT/HCPCS: 36415; 43239; 74177; 80053; 82150; 82272; 82550; 82553; 83690; 84484; 85025; 85610; 85730; 86850; 86900; 86901; 87045; 87046; 87324; 88305; 93005; 96361; 96365; 96366; 96375; 96376; 99291

== ENCOUNTER 2017-08-12 08:43 | Observation (INO) | payer MEDICARE ==
[2017-08-12] MEDS ORDERED: NITROGLYCERIN OINT 1 INCH/GM PACKET TOPICAL STA (08:55)
[2017-08-12] MEDS ORDERED: NITROGLYCERIN SL TABS 0.4 MG TAB SUBLINGUAL STA (08:55)
--- NOTE | 2017-08-12 09:00 | ED ---
General Adult HPI - General Stated complaint: Chest Pain Time Seen by Provider: 08/12/17 08:45 Source: RN notes reviewed - History of Present Illness Initial comments: This is an 82-year-old male who presents emergency Department complaining of right-sided chest pain that radiates to his right arm and into his back. Patient states she had bypass surgery in the past as well as 10 stents placed. Patient states the pain was quite intense he thought the aspirin at home helped him in the nitroglycerin also helped him. Patient states he did one nitroglycerin prior to arrival. Patient denied any shortness of breath. Patient denied any diaphoresis. Patient did state he was mildly nauseated. Patient states the pain is now back but not quite as intense but worsened since the nitro. Patient denies any recent fever chills or cough. Patient states nothing seems to make it better or worse except for the nitro. Patient denies any abdominal pain. Patient denies any vomiting diarrhea. - Related Data Home Medications Medication Instructions Recorded Confirmed Metoprolol Tartrate [Lopressor] 25 mg PO BID 01/14/15 08/12/17 Temazepam [Restoril] 30 mg PO HS PRN 09/23/16 08/12/17 Multivitamins, Thera [Multivitamin 1 tab PO DAILY 08/12/17 08/12/17 (formulary)] Previous Rx's Medication Instructions Recorded Aspirin EC [Ecotrin Low Dose] 81 mg PO DAILY #30 tablet. 04/22/17 Allergies Allergy/AdvReac Type Severity Reaction Status Date / Time levofloxacin [From Levaquin] Allergy Rash/Hives Verified 08/12/17 09:08 Review of Systems ROS Statement: Those systems with pertinent positive or pertinent negative responses have been documented in the HPI. ROS Other: All systems not noted in ROS Statement are negative. Past Medical History Past Medical History: Atrial Fibrillation, Chest Pain / Angina, Heart Failure, COPD, Dementia, Hyperlipidemia, Hypertension, Myocardial Infarction ([place]), Pneumonia Additional Past Medical History / Comment(s): aaa not sure of the size, diverticulosis, lower bridge,"occ panic attacks" "several mi's.rosacea, past gerd, arthritis Last Myocardial Infarction Date:: 2009 and 2014 History of Any Multi-Drug Resistant Organisms: None Reported Past Surgical History: Back Surgery, Coronary Bypass/CABG, Heart Catheterization With Stent Additional Past Surgical History / Comment(s): bypass 2010 at [facility], he had openheart and it was unsuccessfulll on one side so they had to stent it. pt stated he has a total of "10 stents", turp, lt cataract, colonoscopy/egd Past Anesthesia/Blood Transfusion Reactions: No Reported Reaction Date of Last Stent Placement:: 2009 Past Psychological History: Anxiety Smoking Status: Former smoker Past Alcohol Use History: None Reported Past Drug Use History: None Reported - Past Family History Father Additional Family Medical History / Comment(s): father had a cardica hx, unsure of what Brother(s) Additional Family Medical History / Comment(s): pt reports his brother to had a cardica hx General Exam - General Exam Comments Initial Comments: GENERAL: Patient is well-developed and well-nourished. Patient is nontoxic and well- hydrated and is in mild distress. ENT: Neck is soft and supple. No significant lymphadenopathy is noted. Oropharynx is clear. Moist mucous membranes. Neck has full range of motion without eliciting any pain. EYES: The sclera were anicteric and conjunctiva were pink and moist. Extraocular movements were intact and pupils were equal round and reactive to light. Eyelids were unremarkable. PULMONARY: Unlabored respirations. Good breath sounds bilaterally. No audible rales rhonchi or wheezing was noted. CARDIOVASCULAR: There is a regular rate and rhythm without any murmurs gallops or rubs. ABDOMEN: Soft and nontender with normal bowel sounds. No palpable organomegaly was noted. There is no palpable pulsatile mass. SKIN: Skin is clear with no lesions or rashes and otherwise unremarkable. NEUROLOGIC: Patient is alert and oriented x3. Cranial nerves II through XII are grossly intact. Motor and sensory are also intact. Normal speech, volume and content. Symmetrical smile. MUSCULOSKELETAL: Normal extremities with adequate strength and full range of motion. No lower extremity swelling or edema. No calf tenderness. LYMPHATICS: No significant lymphadenopathy is noted PSYCHIATRIC: Normal psychiatric evaluation. Normal interpersonal interactions appears functionally intact in deals appropriately with others. No signs of depression. No signs of anxiety. Course Vital Signs 08/12/17 08/12/17 08/12/17 08:54 09:15 09:20 Temperature 98.3 F Pulse Rate 89 77 Respiratory 18 18 Rate Blood Pressure 184/104 172/101 158/99 O2 Sat by Pulse 95 97 Oximetry Medical Decision Making - Medical Decision Making EKG shows atrial fibrillation 76 bpm QRS is 90 QT interval 418 QTC is 470. Patient's EKG shows no ST segment elevation or depression or T wave abnormalities are noted. Chest x-ray shows no acute process. I started the patient heparin because of his unstable angina and is relieved with nitroglycerin. I spoke with Dr. Womack he agreed to admit the patient admitted the patient I consult cardiology continue nitro paste heparin and aspirin on the floor. - Lab Data Result diagrams: 08/12/17 09:15 08/12/17 09:15 Lab Results 08/12/17 08/12/17 08/12/17 Range/Units 09:15 09:15 09:15 WBC 4.3 (3.8-10.6) k/uL RBC 4.92 (4.30-5.90) m/uL Hgb 14.7 (13.0-17.5) gm/dL Hct 44.9 (39.0-53.0) % MCV 91.1 (80.0-100.0) fL MCH 29.8 (25.0-35.0) pg MCHC 32.7 (31.0-37.0) g/dL RDW 15.0 (11.5-15.5) % Plt Count 179 (150-450) k/uL Neutrophils % 71 % Lymphocytes % 15 % Monocytes % 9 % Eosinophils % 2 % Basophils % 1 % Neutrophils # 3.0 (1.3-7.7) k/uL Lymphocytes # 0.6 L (1.0-4.8) k/uL Monocytes # 0.4 (0-1.0) k/uL Eosinophils # 0.1 (0-0.7) k/uL Basophils # 0.0 (0-0.2) k/uL PT (9.0-12.0) sec INR (<1.2) APTT (22.0-30.0) sec Sodium 139 (137-145) mmol/L Potassium 4.8 (3.5-5.1) mmol/L Chloride 105 (98-107) mmol/L Carbon Dioxide 24 (22-30) mmol/L Anion Gap 10 mmol/L BUN 20 (9-20) mg/dL Creatinine 1.00 (0.66-1.25) mg/dL Est GFR (CKD-EPI)AfAm 80 (>60 ml/min/1.73 sqM) Est GFR (CKD-EPI)NonAf 69 (>60 ml/min/1.73 sqM) Glucose 89 (74-99) mg/dL Calcium 9.5 (8.4-10.2) mg/dL Magnesium 2.0 (1.6-2.3) mg/dL Total Bilirubin 0.8 (0.2-1.3) mg/dL AST 34 (17-59) U/L ALT 37 (21-72) U/L Alkaline Phosphatase 48 (38-126) U/L Total Creatine Kinase 33 L (55-170) U/L CK-MB (CK-2) 0.8 (0.0-2.4) ng/mL CK-MB (CK-2) Rel Index 2.4 Troponin I <0.012 (0.000-0.034) ng/mL Total Protein 6.7 (6.3-8.2) g/dL Albumin 4.1 (3.5-5.0) g/dL 08/12/17 Range/Units 09:15 WBC (3.8-10.6) k/uL RBC (4.30-5.90) m/uL Hgb (13.0-17.5) gm/dL Hct (39.0-53.0) % MCV (80.0-100.0) fL MCH (25.0-35.0) pg MCHC (31.0-37.0) g/dL RDW (11.5-15.5) % Plt Count (150-450) k/uL Neutrophils % % Lymphocytes % % Monocytes % % Eosinophils % % Basophils % % Neutrophils # (1.3-7.7) k/uL Lymphocytes # (1.0-4.8) k/uL Monocytes # (0-1.0) k/uL Eosinophils # (0-0.7) k/uL Basophils # (0-0.2) k/uL PT 10.6 (9.0-12.0) sec INR 1.1 (<1.2) APTT 26.6 (22.0-30.0) sec Sodium (137-145) mmol/L Potassium (3.5-5.1) mmol/L Chloride (98-107) mmol/L Carbon Dioxide (22-30) mmol/L Anion Gap mmol/L BUN (9-20) mg/dL Creatinine (0.66-1.25) mg/dL Est GFR (CKD-EPI)AfAm (>60 ml/min/1.73 sqM) Est GFR (CKD-EPI)NonAf (>60 ml/min/1.73 sqM) Glucose (74-99) mg/dL Calcium (8.4-10.2) mg/dL Magnesium (1.6-2.3) mg/dL Total Bilirubin (0.2-1.3) mg/dL AST (17-59) U/L ALT (21-72) U/L Alkaline Phosphatase (38-126) U/L Total Creatine Kinase (55-170) U/L CK-MB (CK-2) (0.0-2.4) ng/mL CK-MB (CK-2) Rel Index Troponin I (0.000-0.034) ng/mL Total Protein (6.3-8.2) g/dL Albumin (3.5-5.0) g/dL Critical Care Time Critical Care Time: Yes Total Critical Care Time: 35 Disposition Clinical Impression: Unstable angina pectoris Disposition: ADMITTED IP TO THIS HOSP Referrals: Noy Ward MD [Primary Care Provider] - 1-2 days Time of Disposition: 11:51
--- NOTE | 2017-08-12 09:44 | XR ---
EXAMINATION TYPE: XR chest 2V DATE OF EXAM: 08/12/2017 COMPARISON: Chest x-ray September 23, 2016. CT chest May 19, 2016. HISTORY: Right-sided chest pain for 2 days. TECHNIQUE: Frontal and lateral views of the chest are obtained. FINDINGS: The cardiac silhouette size is enlarged with atherosclerotic change in the thoracic aorta. Overlying sternal wires are redemonstrated. There is background chronic emphysematous change with sc attered parenchymal fibrosis. There is no suspicious new focal airspace opacity, pleural effusion, or pneumothorax seen bilaterally. The osseous structures are demineralized. IMPRESSION: Chronic emphysematous change and cardiomegaly without acute pulmonary process.
[2017-08-12 09:55] LABS: Basophils % (A) 1 %; Eosinophils # (A) 0.1 k/uL (0-0.7); Eosinophils % (A) 2 %; HCT 44.9 % (39.0-53.0); HGB 14.7 gm/dL (13.0-17.5); Lymphocytes # (A) 0.6 k/uL (1.0-4.8); Lymphocytes % (A) 15 %; MCH 29.8 pg (25.0-35.0); MCHC 32.7 g/dL (31.0-37.0); MCV 91.1 fL (80.0-100.0); Mean Platelet Volume 7.5; Monocytes # (A) 0.4 k/uL (0-1.0); Monocytes % (A) 9 %; Neutrophils % (A) 71 %; Platelet Count 179 k/uL (150-450); RBC 4.92 m/uL (4.30-5.90); WBC 4.3 k/uL (3.8-10.6)
[2017-08-12 10:06] LABS: Albumin 4.1 g/dL (3.5-5.0); Calcium 9.5 mg/dL (8.4-10.2); Potassium 4.8 mmol/L (3.5-5.1); Total Bilirubin 0.8 mg/dL (0.2-1.3); Total Protein 6.7 g/dL (6.3-8.2)
[2017-08-12 10:15] LABS: INR 1.1 (<1.2); Partial Thromboplastin Time 26.6 sec (22.0-30.0); Prothrombin Time 10.6 sec (9.0-12.0)
[2017-08-12 10:24] LABS: Creatine Kinase 33 U/L (55-170)
[2017-08-12 10:38] LABS: Creatine Kinase MB 0.8 ng/mL (0.0-2.4); Troponin I <0.012 ng/mL (0.000-0.034)
[2017-08-12] MEDS ORDERED: HEPARIN SODIUM,PORCINE 5,000 UNIT/ML 1 ML VIAL IV ONE (11:37)
[2017-08-12] MEDS ORDERED: HEPARIN SOD,PORK IN 0.45% NACL 25,000 UNIT in 0.45% NACL 1 500ML.BAG IV SCH (11:45)
[2017-08-12] MEDS ORDERED: NITROGLYCERIN SL TABS 0.4 MG TAB SUBLINGUAL PRN (11:51)
[2017-08-12] MEDS: NITROGLYCERIN OINT 1 INCH/GM PACKET TOPICAL SCH ×2 (12:27→17:42)
[2017-08-12] MEDS ORDERED: METOPROLOL TARTRATE 25 MG TAB PO STA (12:38)
[2017-08-12] MEDS ORDERED: TEMAZEPAM 30 MG CAP PO PRN (15:44)
--- NOTE | 2017-08-12 15:46 | P.HPIM ---
History of Present Illness H&P Date: 08/12/17 Chief Complaint: Chest pain Rigoberto Garcia is an 82-year-old male who presented to [facility] emergency room complaining of chest pain, radiating to the right shoulder and arm, pain was mostly in the right side of the chest, patient took aspirin and sublingual nitroglycerin and this helped his pain he presented to emergency room he was evaluated by Dr. Richardson, he has known history of coronary artery disease, he had coronary artery bypass graft surgery in 2010, he also had 10 stent placement in the past, he was evaluated in the emergency room, was started on IV heparin and was admitted to telemetry floor cardiology consultation was requested. 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 Last Myocardial Infarction Date:: 2014 History of Any Multi-Drug Resistant Organisms: None Reported Past Surgical History: Back Surgery, Coronary Bypass/CABG, Heart Catheterization With Stent Additional Past Surgical History / Comment(s): 2009 CABG 2 vessel, PCIs/ total of 10 stents per pt/family, low back fusion/rodsx2, bilateral cataract removals/ lens implants, EGD, colonoscopy. Past Anesthesia/Blood Transfusion Reactions: No Reported Reaction Date of Last Stent Placement:: 2009 Smoking Status: Former smoker - Past Family History Mother Family Medical History: Vascular Disorder Additional Family Medical History / Comment(s): Mother from an esophageal aneurysm rupture at the age of 83 yrs. Father Family Medical History: Cancer Additional Family Medical History / Comment(s): Father of lung cancer. He was an exsmoker. Brother(s) Additional Family Medical History / Comment(s): pt reports his brother to had a cardica hx Medications and Allergies Home Medications Medication Instructions Recorded Confirmed Type Metoprolol Tartrate [Lopressor] 25 mg PO BID 01/14/15 08/12/17 History Temazepam [Restoril] 30 mg PO HS PRN 09/23/16 08/12/17 History Aspirin EC [Ecotrin Low Dose] 81 mg PO DAILY #30 tablet. 04/22/17 08/12/17 Rx Multivitamins, Thera [Multivitamin 1 tab PO DAILY 08/12/17 08/12/17 History (formulary)] Allergies Allergy/AdvReac Type Severity Reaction Status Date / Time levofloxacin [From Levaquin] Allergy Rash/Hives Verified 08/12/17 09:08 Physical Exam Vitals: Vital Signs Temp Pulse Resp BP Pulse Ox 08/12/17 14:44 73 16 151/76 95 08/12/17 12:26 91 18 181/94 08/12/17 09:20 158/99 08/12/17 09:15 77 18 172/101 97 08/12/17 08:54 98.3 F 89 18 184/104 95 Intake and Output 08/12/17 08/12/17 08/12/17 06:59 14:59 22:59 Other: Weight 78.925 kg In general patient is alert and oriented 3 in no apparent distress HEENT head normocephalic and atraumatic Neck is supple no JVD no goiter no lymphadenopathy Chest exam reveals a few scattered rhonchi bilaterally no wheezing Cardiac exam reveals regular heart sounds S1 and S2 no gallops no murmurs Abdomen is soft nontender no organomegaly with normal bowel sounds Extremity exam reveals no edema no cyanosis or clubbing Results CBC & Chem 7: 08/12/17 09:15 08/12/17 09:15 Labs: Abnormal Lab Results - Last 24 Hours (Table) 08/12/17 08/12/17 Range/Units 09:15 09:15 Lymphocytes # 0.6 L (1.0-4.8) k/uL Total Creatine Kinase 33 L (55-170) U/L Thrombosis Risk Factor Assmnt - Choose All That Apply Any of the Below Risk Factors Present?: Yes Each Factor Represents 1 point: Abnormal pulmonary function (COPD) Other Risk Factors: Yes Each Risk Factor Represents 3 Points: Age 75 years or older Other congenital or acquired thrombophilia - If yes, enter type in comment: No Thrombosis Risk Factor Assessment Total Risk Factor Score: 4 Thrombosis Risk Factor Assessment Level: Moderate Risk Assessment and Plan Plan: #1 episode of chest pain in an 82-year-old male with multiple cardiac risk factors including known history of coronary artery disease, with previous coronary artery bypass graft surgery and previous 10 stent placement. At this time patient is admitted to telemetry floor he was started on IV heparin cardiology consultation was requested #2 underlying history of hypertension patient was maintained on metoprolol 25 mg by mouth twice a day would resume #3 underlying history of hyperlipidemia patient is not on any medication at this time will check fasting lipid profile #4 underlying history of COPD stable patient does not use any inhalers at home Will monitor closely cardiology consultation has been requested will follow during this hospitalization
[2017-08-12 15:57] VITALS: RESP 18
[2017-08-12] MEDS: ASPIRIN 81 MG PO SCH (16:47)
[2017-08-12 17:28] LABS: Creatine Kinase 38 U/L (55-170)
[2017-08-12 17:40] LABS: Troponin I <0.012 ng/mL (0.000-0.034)
[2017-08-12] MEDS: METOPROLOL TARTRATE 25 MG TAB PO SCH (21:55)
[2017-08-12 22:36] LABS: Creatine Kinase 34 U/L (55-170)
[2017-08-12 22:48] LABS: Troponin I <0.012 ng/mL (0.000-0.034)
[2017-08-13 00:20] LABS: Cholesterol 207 mg/dL (<200); HDL Cholesterol 52 mg/dL (40-60); LDL Cholesterol,Calculated 140 mg/dL (0-99); Triglycerides 73 mg/dL (<150)
[2017-08-13] MEDS: NITROGLYCERIN OINT 1 INCH/GM PACKET TOPICAL SCH ×3 (05:55→13:20)
--- NOTE | 2017-08-13 07:22 | P.CRDCN ---
History of Present Illness Consult date: 08/13/17 Chief complaint: Chest discomfort History of present illness: This is a pleasant 82-year-old gentleman who sees Dr. Dill in the office as an outpatient with a past medical history significant for coronary artery disease and prior coronary artery bypass grafting as well as coronary artery stenting with the last intervention was performed in January 2015 where the patient presented at that point with acute non-ST elevation myocardial infarction and he underwent a heart catheterization and stenting of a long segment of the left anterior descending artery. Beside that the patient does have chronic atrial fibrillation, hypertension, and dyslipidemia. Currently he is under a lot of stress because he and his are in process of moving into assisted living place. He stated that he was in his usual state of health until yesterday when he dropped his cane on the floor and he bended down to pick it up and when he stands he started experiencing chest discomfort, mainly over the right stated of the chest, without any radiation to the arm or neck or shoulders and without any associated symptoms of shortness of breath, sweating, dizziness or lightheadedness, or syncope. The discomfort described as a sharp kind of discomfort. He stated that this discomfort is completely different from what he experienced back in January 2015 when he presented with acute non-ST elevation myocardial infarction. The EKG showed atrial fibrillation with nonspecific changes in the high lateral leads. The cardiac enzymes were checked and came in to be unremarkable. The chest x-ray did not show any acute abnormalities. Clinically the patient has been pain-free since he was admitted to the hospital. 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 Last Myocardial Infarction Date:: 2014 History of Any Multi-Drug Resistant Organisms: None Reported Past Surgical History: Back Surgery, Coronary Bypass/CABG, Heart Catheterization With Stent Additional Past Surgical History / Comment(s): 2009 CABG 2 vessel, PCIs/ total of 10 stents per pt/family, low back fusion/rodsx2, bilateral cataract removals/ lens implants, EGD, colonoscopy. Past Anesthesia/Blood Transfusion Reactions: No Reported Reaction Date of Last Stent Placement:: 2009 Smoking Status: Former smoker - Past Family History Mother Family Medical History: Vascular Disorder Additional Family Medical History / Comment(s): Mother from an esophageal aneurysm rupture at the age of 83 yrs. Father Family Medical History: Cancer Additional Family Medical History / Comment(s): Father of lung cancer. He was an exsmoker. Brother(s) Additional Family Medical History / Comment(s): pt reports his brother to had a cardica hx Medications and Allergies Home Medications Medication Instructions Recorded Confirmed Type Metoprolol Tartrate [Lopressor] 25 mg PO BID 01/14/15 08/12/17 History Temazepam [Restoril] 30 mg PO HS PRN 09/23/16 08/12/17 History Aspirin EC [Ecotrin Low Dose] 81 mg PO DAILY #30 tablet. 04/22/17 08/12/17 Rx Multivitamins, Thera [Multivitamin 1 tab PO DAILY 08/12/17 08/12/17 History (formulary)] Allergies Allergy/AdvReac Type Severity Reaction Status Date / Time levofloxacin [From Levaquin] Allergy Rash/Hives Verified 08/12/17 09:08 Physical Exam Vitals: Vital Signs Temp Pulse Pulse Resp BP BP Pulse Ox 08/13/17 04:00 18 08/13/17 00:00 98.0 F 72 18 152/76 94 L 08/12/17 21:03 96 08/12/17 20:01 98.1 F 71 18 147/77 94 L 08/12/17 20:00 72 18 08/12/17 17:46 76 18 160/76 96 08/12/17 16:18 98.3 F 68 18 168/74 96 08/12/17 15:55 68 18 168/74 100 08/12/17 14:44 73 16 151/76 95 08/12/17 12:26 91 18 181/94 08/12/17 09:20 158/99 08/12/17 09:15 77 18 172/101 97 08/12/17 08:54 98.3 F 89 18 184/104 95 Intake and Output 0608/13/17 08/13/17 22:59 06:59 14:59 Intake Total 500 300.597 Balance 500 300.597 Intake: Amount of Fluid Infused ( 300 ml) Intake, IV Titration 300.597 Amount Heparin Sod,Pork in 0.45% 300.597 NaCl 25,000 unit In 0.45 % NaCl 1 500ml.bag @ 12 UNITS/KG/HR 18.94 mls/hr IV .Q24H [facility] Rx#: [id number] Oral 200 Other: # Voids 1 1 Weight 78.925 kg - Constitutional General appearance: no acute distress - Respiratory Respiratory: bilateral: CTA - Cardiovascular Rhythm: irregularly irregular Heart sounds: normal: S1, S2 Results 08/12/17 09:15 08/12/17 09:15 Cardiac Enzymes 08/12/17 08/12/17 08/12/17 Range/Units 09:15 09:15 16:40 AST 34 (17-59) U/L CK-MB (CK-2) 0.8 1.0 (0.0-2.4) ng/mL Troponin I <0.012 <0.012 (0.000-0.034) ng/mL 08/12/17 Range/Units 21:46 AST (17-59) U/L CK-MB (CK-2) 1.0 (0.0-2.4) ng/mL Troponin I <0.012 (0.000-0.034) ng/mL Coagulation 08/12/17 08/12/17 Range/Units 09:15 21:46 PT 10.6 (9.0-12.0) sec APTT 26.6 90.7 H (22.0-30.0) sec Lipids 08/12/17 Range/Units 09:15 Triglycerides 73 (<150) mg/dL Cholesterol 207 H (<200) mg/dL HDL Cholesterol 52 (40-60) mg/dL CBC 08/12/17 Range/Units 09:15 WBC 4.3 (3.8-10.6) k/uL RBC 4.92 (4.30-5.90) m/uL Hgb 14.7 (13.0-17.5) gm/dL Hct 44.9 (39.0-53.0) % Plt Count 179 (150-450) k/uL Comprehensive Metabolic Panel 08/12/17 Range/Units 09:15 Sodium 139 (137-145) mmol/L Potassium 4.8 (3.5-5.1) mmol/L Chloride 105 (98-107) mmol/L Carbon Dioxide 24 (22-30) mmol/L BUN 20 (9-20) mg/dL Creatinine 1.00 (0.66-1.25) mg/dL Glucose 89 (74-99) mg/dL Calcium 9.5 (8.4-10.2) mg/dL AST 34 (17-59) U/L ALT 37 (21-72) U/L Alkaline Phosphatase 48 (38-126) U/L Total Protein 6.7 (6.3-8.2) g/dL Albumin 4.1 (3.5-5.0) g/dL Current Medications Generic Name Dose Route Start Last Admin Trade Name Freq PRN Reason Stop Dose Admin Aspirin 81 mg 08/12/17 15:45 08/12/17 16:47 Aspirin PO Not Given DAILY [facility] Heparin Sodium/Sodium Chloride 500 mls @ 18.94 mls/hr 08/12/17 11:45 04:29 25,000 unit/ Sodium Chloride IV 9.81 units/kg/hr .Q24H [facility] 15.5 mls/hr Titration Protocol 12 UNITS/KG/HR Metoprolol Tartrate 25 mg 08/12/17 21:00 08/12/17 21:55 Lopressor PO 25 mg BID [facility] Administration Multivitamins 1 each 08/13/17 12:00 Theragran PO DAILY@1200 [facility] Nitroglycerin 1 inch 08/12/17 12:00 08/13/17 06:37 Nitro-Bid Oint TOPICAL Not Given Q6HR [facility] Nitroglycerin 0.4 mg 08/12/17 11:51 Nitrostat SUBLINGUAL Q5M PRN Chest Pain Temazepam 30 mg 08/12/17 15:44 08/12/17 22:00 Restoril PO 30 mg HS PRN Administration Insomnia Intake and Output 08/12/17 08/13/17 08/13/17 22:59 06:59 14:59 Intake Total 500 300.597 Balance 500 300.597 Intake: Amount of Fluid Infused ( 300 ml) Intake, IV Titration 300.597 Amount Heparin Sod,Pork in 0.45% 300.597 NaCl 25,000 unit In 0.45 % NaCl 1 500ml.bag @ 12 UNITS/KG/HR 18.94 mls/hr IV .Q24H [facility] Rx#: [id number] Oral 200 Other: # Voids 1 1 Weight 78.925 kg 08/12/17 09:15 08/12/17 09:15 Assessment and Plan Assessment: Assessment #1 atypical chest discomfort #2 severe underlying coronary artery disease and status post PCI of the LAD as well as status post CABG #3 chronic atrial fibrillation #4 hypertension #5 dyslipidemia Plan #1 the patient was ruled out for acute coronary event. The cardiac enzymes were checked and came in to be unremarkable #2 more importantly he has been pain free since she was admitted to the hospital #3 I am going to get the patient up and around. If he is pain-free he might be able to be discharged home #4 I will obtain an echocardiogram was Doppler as well #5 follow-up with the patient. Thank you for allowing us but spitting his care and we'll continue following up with him
[2017-08-13] MEDS ORDERED: ASPIRIN 325 MG TAB PO SCH (09:00)
[2017-08-13] MEDS: METOPROLOL TARTRATE 25 MG TAB PO SCH (09:59)
[2017-08-13] MEDS: ASPIRIN 81 MG PO SCH (09:59)
[2017-08-13 11:34] VITALS: BP 154/79; PULSE 80; TEMP 97.5
[2017-08-13] MEDS ORDERED: MULTIVITAMINS, THERA 1 EACH TAB PO SCH (12:00)
--- NOTE | 2017-08-13 14:01 | ECHOF ---
Referral Reason: MEASUREMENTS -------- HEIGHT: 170.2 cm WEIGHT: 78.9 kg BP: 152/76 IVSd: 0.8 cm (0.6 - 1.1) LVIDd: 5.5 cm (3.9 - 5.3) LVPWd: 1.1 cm (0.6 - 1.1) IVSs: 1.2 cm LVIDs: 4.4 cm LVPWs: 1.3 cm LAESV Index (A-L): 55.82 ml/m Ao Diam: 3.3 cm (2.0 - 3.7) AV Cusp: 1.5 cm (1.5 - 2.6) LA Diam: 5.3 cm (2.7 - 3.8) MV EXCURSION: 16.312 mm (> 18.000) MV EF SLOPE: 110 mm/s (70 - 150) EPSS: 2.6 cm AR PHT: 423 ms RAP: 5.00 mmHg RVSP: 54.18 mmHg FINDINGS -------- Atrial fibrillation. This was a technically good study. The left ventricular size is normal. There is mild concentric left ventricular hypertrophy. There is moderate global hypokinesis of LV . Overall left ventricular systolic function is moderate-angeline rely impaired with, an EF between 30 - 35 %. The right ventricle is normal in size and function. LA is severely dilated >40 ml/m2 RA appears enlarged. Aortic valve is trileaflet and is mildly thickened. There is mild aortic regurgitation. The mitral valve leaflets are mildly thickened. Moderate mitral regurgitation is present. Moderate tricuspid regurgitation present. There is moderate pulmonary hypertension. The right jay tricular systolic pressure, as measured by Doppler, is 54.18mmHg. Trace/mild (physiologic) pulmonic regurgitation. The aortic root size is normal. Normal inferior vena cava with normal inspiratory collapse consistent with estimated right atrial pre ssure of 5 mmHg. The pericardium is normal. CONCLUSIONS -------- 1. Atrial fibrillation. 2. This was a technically good study. 3. The left ventricular size is normal. 4. There is mild concentric left ventricular hypertrophy. 5. There is moderate global hypokinesis of LV . 6. Overall left ventricular systolic function is moderate-severely impaired with, an EF between 30 - 35 %. 7. The right ventricle is normal in size and function. 8. LA is severely dilated >40 ml/m2 9. RA appears enlarged. 10. Aortic valve is trileaflet and is mildly thickened. 11. There is mild aortic regurgitation. 12. The mitral valve leaflets are mildly thickened. 13. Moderate mitral regurgitation is present. 14. Moderate tricuspid regurgitation present. 15. There is moderate pulmonary hypertension. 16. The right ventricular systolic pressure, as measured by Doppler, is 54.18mmHg. 17. Trace/mild (physiologic) pulmonic regurgitation. 18. The aortic root size is normal. 19. Normal inferior vena cava with normal inspiratory collapse consistent with estimated right atrial pressure of 5 mmHg. 20. The pericardium is normal. PC SUPPORT SPECIALIST: Lilliana Kinney RDCS
[2017-08-13 14:06] VITALS: BMI 27.2
--- NOTE | 2017-08-13 15:03 | P.DS ---
Providers Date of admission: 08/12/17 11:51 Expected date of discharge: 08/13/17 Attending physician: Fanny Womack Consults: 08/12/17 11:51 Consult Physician Urgent Consulting Provider: [facility] Consult Reason/Comments: Unstable angina Do you want consulting provider notified?: Yes Primary care physician: Noy Ward [facility] Course: Diagnoses on discharge: #1 episode of chest pain in an 82-year-old male with multiple cardiac risk factors including known history of coronary artery disease, with previous coronary artery bypass graft surgery and previous 10 stent placement. Myocardial infarction ruled out patient was admitted to telemetry floor he was started on IV heparin cardiology consultation was requested. patient was evaluated by Dr Hooper and cleared for discharge. #2 underlying history of hypertension patient was maintained on metoprolol 25 mg by mouth twice a day would resume #3 underlying history of hyperlipidemia patient is not on any medication at this time will check fasting lipid profile #4 underlying history of COPD stable patient does not use any inhalers at home Hospital course: Rigoberto Garcia is an 82-year-old male who presented to [facility] emergency room complaining of chest pain, radiating to the right shoulder and arm, pain was mostly in the right side of the chest, patient took aspirin and sublingual nitroglycerin and this helped his pain he presented to emergency room he was evaluated by Dr. Richardson, he has known history of coronary artery disease, he had coronary artery bypass graft surgery in 2010, he also had 10 stent placement in the past, he was evaluated in the emergency room, was started on IV heparin and was admitted to telemetry floor cardiology consultation was requested. During this admission myocardial infarction was ruled out, cardiac enzymes were negative, patient was seen by Dr. Mehta and was cleared for discharge, he was symptom free during this hospitalization without any recurrence of his chest pain. Echocardiogram was done and revealed decreased ejection fraction of 35%. Patient primary coin machine servicer repairer is Dr. Noel and he will follow-up with him in the office in 1-2 weeks Continue same medications as prior to admission Plan - Discharge Summary Discharge Rx Participant: No New Discharge Prescriptions: Continue Metoprolol Tartrate [Lopressor] 25 mg PO BID Temazepam [Restoril] 30 mg PO HS PRN PRN Reason: Insomnia Aspirin EC [Ecotrin Low Dose] 81 mg PO DAILY #30 tablet. Multivitamins, Thera [Multivitamin (formulary)] 1 tab PO DAILY Discharge Medication List Metoprolol Tartrate [Lopressor] 25 mg PO BID 01/14/15 [History] Temazepam [Restoril] 30 mg PO HS PRN 09/23/16 [History] Aspirin EC [Ecotrin Low Dose] 81 mg PO DAILY #30 tablet. 04/22/17 [Rx] Multivitamins, Thera [Multivitamin (formulary)] 1 tab PO DAILY 08/12/17 [History ] Follow up Appointment(s)/Referral(s): Noy Ward MD [Primary Care Provider] - 1-2 days Shiva Dill MD [STAFF PHYSICIAN] - 3 Weeks (Please call the office to arrange post hospital follow up)
== END 2017-08-13 15:35 | disposition home or self-care (01) ==
LOC: EC 08:43 → 6SEL 11:51 → 3OBS 15:00
PROVIDERS: ADMIT Internal Medicine; ATTEND Internal Medicine
DX: R07.89 Other chest pain (principal); I11.0 Hypertensive heart disease with heart failure; I50.9 Heart failure, unspecified; I48.2 Chronic atrial fibrillation; I25.10 Atherosclerotic heart disease of native coronary artery without angina pectoris; K21.9 Gastro-esophageal reflux disease without esophagitis; J44.9 Chronic obstructive pulmonary disease, unspecified; G40.909 Epilepsy, unspecified, not intractable, without status epilepticus; F03.90 Unspecified dementia, unspecified severity, without behavioral disturbance, psychotic disturbance, mood disturbance, and anxiety; E78.5 Hyperlipidemia, unspecified; M46.90 Unspecified inflammatory spondylopathy, site unspecified; L71.9 Rosacea, unspecified; K57.90 Diverticulosis of intestine, part unspecified, without perforation or abscess without bleeding; I25.2 Old myocardial infarction; Z95.5 Presence of coronary angioplasty implant and graft; Z95.1 Presence of aortocoronary bypass graft; I71.4 Abdominal aortic aneurysm, without rupture; M54.9 Dorsalgia, unspecified; G89.29 Other chronic pain; Z79.82 Long term (current) use of aspirin; Z79.899 Other long term (current) drug therapy; Z88.1 Allergy status to other antibiotic agents; Z98.1 Arthrodesis status; Z87.19 Personal history of other diseases of the digestive system; Z87.01 Personal history of pneumonia (recurrent); Z87.891 Personal history of nicotine dependence; Z82.49 Family history of ischemic heart disease and other diseases of the circulatory system; Z80.1 Family history of malignant neoplasm of trachea, bronchus and lung; Z81.2 Family history of tobacco abuse and dependence
CPT/HCPCS: 36415; 71046; 80053; 80061; 82550; 82553; 83735; 84484; 85025; 85610; 85730; 93005; 93306; 94760; 96365; 96366; 96376; 99291

== ENCOUNTER 2018-07-16 21:53 | Emergency (ER) | payer MEDICARE ==
[~2018-07-16 21:53] MED LIST: ETOMIDATE 2 MG/ML 10 ML VIAL ONE; SUCCINYLCHOLINE CHLORIDE VIAL 200 MG/10 ML VIAL IV ONE
[2018-07-16] MEDS ORDERED: LABETALOL 5 MG/ML VIAL MDV IVP STA (22:02)
[2018-07-16] MEDS ORDERED: DILTIAZEM DRIP BOLUS FROM BAG 1 MG SOLN IV ONE (22:07)
[2018-07-16 22:17] LABS: Glucose,Whole Blood 131 mg/dL (75-99)
[2018-07-16] MEDS ORDERED: LORazepam 2 MG/ML INJ IV STA (22:19)
[2018-07-16] MEDS ORDERED: SUCCINYLCHOLINE CHLORIDE VIAL 200 MG/10 ML VIAL IV STA (22:19)
[2018-07-16] MEDS ORDERED: MORPHINE SULFATE 4 MG/ML SYRINGE IVP STA (22:19)
[2018-07-16] MEDS ORDERED: ETOMIDATE 2 MG/ML 10 ML VIAL IVP STA (22:19)
[2018-07-16 22:24] LABS: Basophils % (A) 0 %; Eosinophils # (A) 0.1 k/uL (0-0.7); Eosinophils % (A) 2 %; HCT 49.2 % (39.0-53.0); Lymphocytes # (A) 3.2 k/uL (1.0-4.8); Lymphocytes % (A) 42 %; MCH 28.6 pg (25.0-35.0); MCHC 30.4 g/dL (31.0-37.0); Mean Platelet Volume 7.3; Monocytes # (A) 0.4 k/uL (0-1.0); Monocytes % (A) 5 %; Neutrophils # (A) 3.6 k/uL (1.3-7.7); Neutrophils % (A) 48 %; Platelet Count 176 k/uL (150-450); RBC 5.23 m/uL (4.30-5.90); RDW 15.9 % (11.5-15.5); WBC 7.6 k/uL (3.8-10.6)
[2018-07-16] MEDS ORDERED: DILTIAZEM 125 MG in SODIUM CHLORIDE 0.9% 100 ML IV SCH (22:30)
--- NOTE | 2018-07-16 22:30 | ED ---
Altered Mental Status HPI - General Chief Complaint: Altered Mental Status Stated Complaint: Poss Stroke Time Seen by Provider: 07/16/18 22:02 Source: EMS Mode of arrival: EMS Limitations: altered mental status - History of Present Illness Initial Comments: This patient is an 83-year-old man brought by ambulance to be evaluated for being unresponsive. The initial history was from EMS alone, as the patient was not able to give any history and family and I had arrived. EMS reported that this the family had last seen the patient sometime around 8 PM, one family member left the home. On returning at about 9 PM, they found him lying back on his bed not responding. When EMS arrived, the patient was making sounds but not able to speak, and he did appear to be moving a bit though would not respond to commands. The patient then had what sounds like a generalized tonic-clonic seizure. EMS could not establish peripheral line and they did start and I/O line in the left tibial area. Patient placed on oxygen, and transported here. They report that the patient's respiratory rate was low and therefore they were assisting with bagging. On arrival, the patient is not able to provide any history. Subsequent history from the patient's daughters reveals that he has had seizures in the past, and that they state he had been given Depakote to take for seizures. They do believe that he has been compliant with medications. MD Complaint: altered mental status -: unknown Severity: severe Context: history of similar presentation Associated Symptoms: seizure Treatments Prior to Arrival: IV fluid, oxygen - Related Data Home Medications Medication Instructions Recorded Confirmed Metoprolol Tartrate [Lopressor] 25 mg PO BID 01/14/15 08/12/17 Temazepam [Restoril] 30 mg PO HS PRN 09/23/16 08/12/17 Multivitamins, Thera [Multivitamin 1 tab PO DAILY 08/12/17 08/12/17 (formulary)] Previous Rx's Medication Instructions Recorded Aspirin EC [Ecotrin Low Dose] 81 mg PO DAILY #30 tablet. 04/22/17 Allergies Allergy/AdvReac Type Severity Reaction Status Date / Time levofloxacin [From Levaquin] Allergy Rash/Hives Verified 08/12/17 09:08 Review of Systems ROS Statement: Those systems with pertinent positive or pertinent negative responses have been documented in the HPI. ROS Other: All systems not noted in ROS Statement are negative. 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 Last Myocardial Infarction Date:: 2014 History of Any Multi-Drug Resistant Organisms: None Reported Past Surgical History: Back Surgery, Coronary Bypass/CABG, Heart Catheterization With Stent Additional Past Surgical History / Comment(s): 2009 CABG 2 vessel, PCIs/ total of 10 stents per pt/family, low back fusion/rodsx2, bilateral cataract removals/lens implants, EGD, colonoscopy. Past Anesthesia/Blood Transfusion Reactions: No Reported Reaction Date of Last Stent Placement:: 2009 Past Psychological History: Anxiety Smoking Status: Former smoker - Past Family History Mother Family Medical History: Vascular Disorder Additional Family Medical History / Comment(s): Mother from an esophageal aneurysm rupture at the age of 83 yrs. Father Family Medical History: Cancer Additional Family Medical History / Comment(s): Father of lung cancer. He was an exsmoker. Brother(s) Additional Family Medical History / Comment(s): pt reports his brother to had a cardica hx General Exam Limitations: altered mental status General appearance: obtunded Head exam: Present: atraumatic, normocephalic Eye exam: Present: normal appearance. Absent: scleral icterus, conjunctival injection, periorbital swelling, periorbital tenderness ENT exam: Present: mucous membranes dry, TM's normal bilaterally, normal external ear exam Neck exam: Present: normal inspection, other (No evidence of trauma. No bony deformity). Absent: tenderness Respiratory exam: Present: respiratory distress, rhonchi, other (Respiratory rate without assistance is 6-8. Scattered rhonchi.). Absent: wheezes, rales, stridor, decreased breath sounds Cardiovascular Exam: Present: tachycardia, irregular rhythm, normal heart sounds. Absent: systolic murmur, diastolic murmur, rubs, gallop GI/Abdominal exam: Present: soft. Absent: distended, tenderness, guarding, rebound, rigid, organomegaly, mass, pulsatile mass, hernia exam: Present: normal inspection Extremities exam: Present: normal inspection, normal capillary refill. Absent: pedal edema, calf tenderness Back exam: Present: normal inspection. Absent: vertebral tenderness (No bony deformity) Neurological exam: Present: altered, other (On arrival the GCS is 3. The patient does have corneal reflex. The gag reflex is not adequate. No deep tendon reflexes.) Skin exam: Present: warm, dry, mottled. Absent: rash Course Vital Signs 07/16/18 07/16/18 07/16/18 21:56 22:04 22:15 Temperature 98.2 F Pulse Rate 149 H 140 H 138 H Respiratory 10 L Rate Blood Pressure 189/120 197/128 192/117 O2 Sat by Pulse Oximetry 07/16/18 07/16/18 07/16/18 22:23 22:29 22:51 Temperature Pulse Rate 135 H 118 H 98 Respiratory 14 Rate Blood Pressure 136/85 110/80 87/65 O2 Sat by Pulse 95 Oximetry 07/16/18 07/16/18 07/17/18 23:16 23:30 01:10 Temperature 97.5 F L Pulse Rate 112 H 120 H 114 H Respiratory 14 13 Rate Blood Pressure 95/70 109/77 122/70 O2 Sat by Pulse 96 Oximetry 07/17/18 07/17/18 07/17/18 02:27 02:32 02:50 Temperature 98.7 F Pulse Rate 117 H 106 H Respiratory 13 12 Rate Blood Pressure 114/98 109/79 106/76 O2 Sat by Pulse Oximetry Procedures - Central Line Placement Right Femoral Consent Obtained: emergent situation Patient Placed on Monitor/Pulse Ox: Yes MD Prep: mask, gown, gloves Central Line Prep: Chlorhexidine scrub, sterile drapes applied Local Anesthesia Used: Lidocaine 1% Central Line Lumen Inserted: triple Central Line Position: good blood return, all ports aspirated, flushed, capped, sutured in place with 3-0 nylon Dressing Applied: Tegaderm Patient Tolerated Procedure: well, no complications - Intubation Sedative: Ketamine Laryngoscope: Eyad Size: 3 ET Tube Size: 8 ET Tube Uncuffed: No Tube Secured Depth (cm): 22 Tube Secured Location: teeth Tube Placement Confirmation: visualized tube passing through cords, equal breath sounds bilaterally, no breath sounds over epigastrium, confirmation by capnometry Patient Tolerated Procedure: well, no complications Intubation Complications: none Additional Comments: Patient intubated for inadequate airway protective reflexes, and GCS less than 8. Medical Decision Making - Medical Decision Making This patient is a 83-year-old man brought for being unresponsive. EMS did describe the seizure as noted and my hypothesis is that the patient may have had a seizure prior to family returning home and then postictal when they arrived. The patient's workup here does reveal a lactic acidosis, which has cleared with fluid bolus. The patient does still appear to be post ictal. He requires neurology evaluation, which the hospital does not have. Family did express a desire to stay in [facility] and I call [facility] they do not have ICU bed availability. [facility] López states that they will be able to accept the patient for transfer there. Of the patient's family then expressed strong desire to transfer patient to the [facility] facility. I discussed the case with Dr. Gao there who will accept transfer. - Lab Data Result diagrams: 07/16/18 22:04 07/16/18 22:04 Lab Results 07/16/18 07/16/18 07/16/18 Range/Units 21:57 22:04 22:04 WBC 7.6 (3.8-10.6) k/uL RBC 5.23 (4.30-5.90) m/uL Hgb 15.0 (13.0-17.5) gm/dL Hct 49.2 (39.0-53.0) % MCV 94.0 (80.0-100.0) fL MCH 28.6 (25.0-35.0) pg MCHC 30.4 L (31.0-37.0) g/dL RDW 15.9 H (11.5-15.5) % Plt Count 176 (150-450) k/uL Neutrophils % 48 % Lymphocytes % 42 % Monocytes % 5 % Eosinophils % 2 % Basophils % 0 % Neutrophils # 3.6 (1.3-7.7) k/uL Lymphocytes # 3.2 (1.0-4.8) k/uL Monocytes # 0.4 (0-1.0) k/uL Eosinophils # 0.1 (0-0.7) k/uL Basophils # 0.0 (0-0.2) k/uL PT (9.0-12.0) sec INR (<1.2) APTT (22.0-30.0) sec Sample Site ABG pH (7.35-7.45) ABG pCO2 (35-45) mmHg ABG pO2 (83-108) mmHg ABG HCO3 (21-25) mmol/L ABG Total CO2 (19-24) mmol/L ABG O2 Saturation (94-97) % ABG Base Excess mmol/L Zachary Test FiO2 % Sodium 135 L (137-145) mmol/L Potassium 4.6 (3.5-5.1) mmol/L Chloride 98 (98-107) mmol/L Carbon Dioxide 22 (22-30) mmol/L Anion Gap 15 mmol/L BUN 14 (9-20) mg/dL Creatinine 1.21 (0.66-1.25) mg/dL Est GFR (CKD-EPI)AfAm 63 (>60 ml/min/1.73 sqM) Est GFR (CKD-EPI)NonAf 54 (>60 ml/min/1.73 sqM) Glucose 145 H (74-99) mg/dL POC Glucose (mg/dL) 131 H (75-99) mg/dL POC Glu Director Of Quality ID Rosio Braxton Plasma Lactic Acid Sean (0.7-2.0) mmol/L Calcium 9.4 (8.4-10.2) mg/dL Total Bilirubin 0.6 (0.2-1.3) mg/dL AST 33 (17-59) U/L ALT 9 L (21-72) U/L Alkaline Phosphatase 40 (38-126) U/L Troponin I (0.000-0.034) ng/mL Total Protein 7.2 (6.3-8.2) g/dL Albumin 4.3 (3.5-5.0) g/dL Urine Color Urine Appearance (Clear) Urine pH (5.0-8.0) Ur Specific Gardner (1.001-1.035) Urine Protein (Negative) Urine Glucose (UA) (Negative) Urine Ketones (Negative) Urine Blood (Negative) Urine Nitrite (Negative) Urine Bilirubin (Negative) Urine Urobilinogen (<2.0) mg/dL Ur Leukocyte Esterase (Negative) Urine RBC (0-5) /hpf Urine WBC (0-5) /hpf Ur Squamous Epith Cells (0-4) /hpf Urine Bacteria (None) /hpf Hyaline Casts (0-2) /lpf Urine Mucus (None) /hpf Valproic Acid ug/mL 07/16/18 07/16/18 07/16/18 Range/Units 22:04 22:04 22:04 WBC (3.8-10.6) k/uL RBC (4.30-5.90) m/uL Hgb (13.0-17.5) gm/dL Hct (39.0-53.0) % MCV (80.0-100.0) fL MCH (25.0-35.0) pg MCHC (31.0-37.0) g/dL RDW (11.5-15.5) % Plt Count (150-450) k/uL Neutrophils % % Lymphocytes % % Monocytes % % Eosinophils % % Basophils % % Neutrophils # (1.3-7.7) k/uL Lymphocytes # (1.0-4.8) k/uL Monocytes # (0-1.0) k/uL Eosinophils # (0-0.7) k/uL Basophils # (0-0.2) k/uL PT 10.6 (9.0-12.0) sec INR 1.0 (<1.2) APTT 25.3 (22.0-30.0) sec Sample Site ABG pH (7.35-7.45) ABG pCO2 (35-45) mmHg ABG pO2 (83-108) mmHg ABG HCO3 (21-25) mmol/L ABG Total CO2 (19-24) mmol/L ABG O2 Saturation (94-97) % ABG Base Excess mmol/L Zachary Test FiO2 % Sodium (137-145) mmol/L Potassium (3.5-5.1) mmol/L Chloride (98-107) mmol/L Carbon Dioxide (22-30) mmol/L Anion Gap mmol/L BUN (9-20) mg/dL Creatinine (0.66-1.25) mg/dL Est GFR (CKD-EPI)AfAm (>60 ml/min/1.73 sqM) Est GFR (CKD-EPI)NonAf (>60 ml/min/1.73 sqM) Glucose (74-99) mg/dL POC Glucose (mg/dL) (75-99) mg/dL POC Glu Director Of Quality ID Plasma Lactic Acid Sean 8.0 H* (0.7-2.0) mmol/L Calcium (8.4-10.2) mg/dL Total Bilirubin (0.2-1.3) mg/dL AST (17-59) U/L ALT (21-72) U/L Alkaline Phosphatase (38-126) U/L Troponin I 0.021 (0.000-0.034) ng/mL Total Protein (6.3-8.2) g/dL Albumin (3.5-5.0) g/dL Urine Color Urine Appearance (Clear) Urine pH (5.0-8.0) Ur Specific Gardner (1.001-1.035) Urine Protein (Negative) Urine Glucose (UA) (Negative) Urine Ketones (Negative) Urine Blood (Negative) Urine Nitrite (Negative) Urine Bilirubin (Negative) Urine Urobilinogen (<2.0) mg/dL Ur Leukocyte Esterase (Negative) Urine RBC (0-5) /hpf Urine WBC (0-5) /hpf Ur Squamous Epith Cells (0-4) /hpf Urine Bacteria (None) /hpf Hyaline Casts (0-2) /lpf Urine Mucus (None) /hpf Valproic Acid ug/mL 07/16/18 07/16/18 07/17/18 Range/Units 22:04 22:54 00:35 WBC (3.8-10.6) k/uL RBC (4.30-5.90) m/uL Hgb (13.0-17.5) gm/dL Hct (39.0-53.0) % MCV (80.0-100.0) fL MCH (25.0-35.0) pg MCHC (31.0-37.0) g/dL RDW (11.5-15.5) % Plt Count (150-450) k/uL Neutrophils % % Lymphocytes % % Monocytes % % Eosinophils % % Basophils % % Neutrophils # (1.3-7.7) k/uL Lymphocytes # (1.0-4.8) k/uL Monocytes # (0-1.0) k/uL Eosinophils # (0-0.7) k/uL Basophils # (0-0.2) k/uL PT (9.0-12.0) sec INR (<1.2) APTT (22.0-30.0) sec Sample Site Right Brachial ABG pH 7.38 (7.35-7.45) ABG pCO2 43 (35-45) mmHg ABG pO2 278 H (83-108) mmHg ABG HCO3 26 H (21-25) mmol/L ABG Total CO2 27 H (19-24) mmol/L ABG O2 Saturation 99.6 H (94-97) % ABG Base Excess 0.6 mmol/L Zachary Test Yes FiO2 100 % Sodium (137-145) mmol/L Potassium (3.5-5.1) mmol/L Chloride (98-107) mmol/L Carbon Dioxide (22-30) mmol/L Anion Gap mmol/L BUN (9-20) mg/dL Creatinine (0.66-1.25) mg/dL Est GFR (CKD-EPI)AfAm (>60 ml/min/1.73 sqM) Est GFR (CKD-EPI)NonAf (>60 ml/min/1.73 sqM) Glucose (74-99) mg/dL POC Glucose (mg/dL) (75-99) mg/dL POC Glu Director Of Quality ID Plasma Lactic Acid Sean (0.7-2.0) mmol/L Calcium (8.4-10.2) mg/dL Total Bilirubin (0.2-1.3) mg/dL AST (17-59) U/L ALT (21-72) U/L Alkaline Phosphatase (38-126) U/L Troponin I (0.000-0.034) ng/mL Total Protein (6.3-8.2) g/dL Albumin (3.5-5.0) g/dL Urine Color Yellow Urine Appearance Cloudy (Clear) Urine pH 5.5 (5.0-8.0) Ur Specific Gardner 1.017 (1.001-1.035) Urine Protein 2+ H (Negative) Urine Glucose (UA) Negative (Negative) Urine Ketones Negative (Negative) Urine Blood Moderate H (Negative) Urine Nitrite Negative (Negative) Urine Bilirubin Negative (Negative) Urine Urobilinogen <2.0 (<2.0) mg/dL Ur Leukocyte Esterase Negative (Negative) Urine RBC 7 H (0-5) /hpf Urine WBC 5 (0-5) /hpf Ur Squamous Epith Cells <1 (0-4) /hpf Urine Bacteria Occasional H (None) /hpf Hyaline Casts 26 H (0-2) /lpf Urine Mucus Rare H (None) /hpf Valproic Acid 67.1 ug/mL 07/17/18 Range/Units 01:14 WBC (3.8-10.6) k/uL RBC (4.30-5.90) m/uL Hgb (13.0-17.5) gm/dL Hct (39.0-53.0) % MCV (80.0-100.0) fL MCH (25.0-35.0) pg MCHC (31.0-37.0) g/dL RDW (11.5-15.5) % Plt Count (150-450) k/uL Neutrophils % % Lymphocytes % % Monocytes % % Eosinophils % % Basophils % % Neutrophils # (1.3-7.7) k/uL Lymphocytes # (1.0-4.8) k/uL Monocytes # (0-1.0) k/uL Eosinophils # (0-0.7) k/uL Basophils # (0-0.2) k/uL PT (9.0-12.0) sec INR (<1.2) APTT (22.0-30.0) sec Sample Site ABG pH (7.35-7.45) ABG pCO2 (35-45) mmHg ABG pO2 (83-108) mmHg ABG HCO3 (21-25) mmol/L ABG Total CO2 (19-24) mmol/L ABG O2 Saturation (94-97) % ABG Base Excess mmol/L Zachary Test FiO2 % Sodium (137-145) mmol/L Potassium (3.5-5.1) mmol/L Chloride (98-107) mmol/L Carbon Dioxide (22-30) mmol/L Anion Gap mmol/L BUN (9-20) mg/dL Creatinine (0.66-1.25) mg/dL Est GFR (CKD-EPI)AfAm (>60 ml/min/1.73 sqM) Est GFR (CKD-EPI)NonAf (>60 ml/min/1.73 sqM) Glucose (74-99) mg/dL POC Glucose (mg/dL) (75-99) mg/dL POC Glu Director Of Quality ID Plasma Lactic Acid Sean 1.9 (0.7-2.0) mmol/L Calcium (8.4-10.2) mg/dL Total Bilirubin (0.2-1.3) mg/dL AST (17-59) U/L ALT (21-72) U/L Alkaline Phosphatase (38-126) U/L Troponin I (0.000-0.034) ng/mL Total Protein (6.3-8.2) g/dL Albumin (3.5-5.0) g/dL Urine Color Urine Appearance (Clear) Urine pH (5.0-8.0) Ur Specific Gardner (1.001-1.035) Urine Protein (Negative) Urine Glucose (UA) (Negative) Urine Ketones (Negative) Urine Blood (Negative) Urine Nitrite (Negative) Urine Bilirubin (Negative) Urine Urobilinogen (<2.0) mg/dL Ur Leukocyte Esterase (Negative) Urine RBC (0-5) /hpf Urine WBC (0-5) /hpf Ur Squamous Epith Cells (0-4) /hpf Urine Bacteria (None) /hpf Hyaline Casts (0-2) /lpf Urine Mucus (None) /hpf Valproic Acid ug/mL - EKG Data EKG shows normal: axis (Normal), intervals (Normal), ST-T waves (There are anterolateral ST depressions concerning for possible subendocardial injury.) Rate: tachycardia (Rate approximately 150 bpm) Interpretation: LVH, other (The underlying rhythm appears to be atrial fibrilla tion with a rapid ventricular rate.) Critical Care Time Critical Care Time: Yes (50 minutes) Disposition Clinical Impression: Altered mental status, Lactic acidosis, Atrial fibrillation, Seizure Disposition: OTHER INSTITUTION NOT DEFINED Condition: Critical Instructions (If sedation given, give patient instructions): Altered Mental Status (ED) Is patient prescribed a controlled substance at d/c from ED?: No Referrals: Tyson Hamilton DO [Primary Care Provider] - 1-2 days - Out of Hospital Transfer - Req. Specs Out of Hospital Transfer - Requested Specifics: Other Emergency Center
[2018-07-16 22:35] LABS: Albumin 4.3 g/dL (3.5-5.0); Calcium 9.4 mg/dL (8.4-10.2); Total Bilirubin 0.6 mg/dL (0.2-1.3); Total Protein 7.2 g/dL (6.3-8.2)
[2018-07-16 22:36] LABS: Partial Thromboplastin Time 25.3 sec (22.0-30.0); Prothrombin Time 10.6 sec (9.0-12.0)
--- NOTE | 2018-07-16 22:53 | CT ---
EXAM: CT Head Without Intravenous Contrast CLINICAL HISTORY: ITS.REASON CT Reason: Neuro Deficits TECHNIQUE: Axial computed tomography images of the head/brain without intravenous contrast. CTDI is 58.9 mGy and DLP is 1373 mGy-cm. This CT exam was performed using one or more of the following dose reduction techniques: automated exposure control, adjustment of the mA and/or kV according to patient size, and/or use of iterative reconstruction technique. COMPARISON: 05/05/18 FINDINGS: Brain: Age-related cerebral atrophy. Chronic small vessel ischemic changes in the white matter. No hemorrhage. Ventricles: Unremarkable. No ventriculomegaly. Bones/joints: Unremarkable. No acute fracture. Soft tissues: Unremarkable. Sinuses: Unremarkable as visualized. No acute sinusitis. Mastoid air cells: Unremarkable as visualized. No mastoid effusion. IMPRESSION: No acute findings. Age-related cerebral atrophy and senescent white matter changes.
[2018-07-16 22:56] LABS: Potassium 4.6 mmol/L (3.5-5.1)
--- NOTE | 2018-07-16 23:18 | XR ---
EXAM: XR Chest, 1 View CLINICAL HISTORY: ITS.REASON XR Reason: altered mental status TECHNIQUE: Frontal view of the chest. COMPARISON: 08/12/2017 x-ray IMPRESSION: Cardiomegaly. Mild left pleural effusion. Increased opacity in the left lower lobe, possibly aspiration or atelectasis. ET tube terminates 4.3 cm in malick. NG tube tip terminates in the proximal to mid stomach.
[2018-07-16 23:19] LABS: Appearance,Urine Cloudy (Clear); Bacteria,Urine Occasional /hpf; Bilirubin,Urine Negative (Negative); Blood,Urine Moderate (Negative); Color,Urine Yellow; Glucose,Urine (UA) Negative (Negative); Hyaline Casts,Urine 26 /lpf (0-2); Ketones,Urine Negative (Negative); Leukocyte Esterase,Urine Negative (Negative); Mucus,Urine Rare /hpf; Nitrite,Urine Negative (Negative); PH, Urine 5.5 (5.0-8.0); Protein,Urine 2+ (Negative); RBC,Urine 7 /hpf (0-5); Specific Gravity,Urine 1.017 (1.001-1.035); Squamous Epithelial Cell,Urine <1 /hpf (0-4); Urobilinogen,Urine <2.0 mg/dL (<2.0); WBC,Urine 5 /hpf (0-5)
[2018-07-16] MEDS ORDERED: SODIUM CHLORIDE 0.9% 1,000 ML IV ONE (23:23)
[2018-07-17] MEDS ORDERED: PIPERACILLIN-TAZOBACTAM 3.375 GM in SODIUM CHLORIDE 0.9% 100 ML IVPB STA ×2
--- NOTE | 2018-07-17 00:16 | XR ---
EXAM: XR Chest, 1 View CLINICAL HISTORY: ITS.REASON XR Reason: pain TECHNIQUE: Frontal view of the chest. COMPARISON: 08/12/17 x-ray IMPRESSION: Cardiomegaly. Mild left pleural effusion. ET tube terminates 1.6 cm from the malick. NG tube terminates in the mid stomach.
[2018-07-17] MEDS ORDERED: LORazepam 2 MG/ML INJ IV STA ×2 (00:20→02:19)
[2018-07-17 00:39] LABS: ABG Base Excess 0.6 mmol/L; ABG HCO3 26 mmol/L (21-25); ABG Oxygen Saturation 99.6 % (94-97); ABG PCO2 43 mmHg (35-45); ABG PH 7.38 (7.35-7.45); ABG PO2 278 mmHg (83-108); ABG TCO2 27 mmol/L (19-24); Allen Test Performed? Yes
--- NOTE | 2018-07-17 01:34 | CT ---
EXAM: CT Angiography Chest With Intravenous Contrast CLINICAL HISTORY: ITS.REASON CT Reason: Pain TECHNIQUE: Axial computed tomographic angiography images of the chest with intravenous contrast using pulmonary embolism protocol. CTDI is 13 mGy and DLP is 473 mGy-cm. This CT exam was performed using one or more of the following dose reduction techniques: automated exposure control, adjustment of the mA and/or kV according to patient size, and/or use of iterative reconstruction technique. MIP reconstructed images were created and reviewed. COMPARISON: Chest x-ray 07/17/18 FINDINGS: ET tube terminates 3.2 cm from the malick. Pulmonary arteries: No filling defects. Aorta: No thoracic aortic aneurysm. Lungs: Mild centrilobular emphysema. Subsegmental atelectasis in the bilateral lower lobes. Pleural space: No significant effusion. No pneumothorax. Heart: Cardiomegaly. No Pericardial effusion. Bones/joints: No acute fracture or dislocation. Soft tissues: Unremarkable. Lymph nodes: No enlarged lymph nodes. IMPRESSION: 1. No pulmonary embolism. 2. Cardiomegaly. 3. Bibasilar atelectasis.
--- NOTE | 2018-07-17 01:36 | CT ---
EXAM: CT Abdomen and Pelvis With Intravenous Contrast CLINICAL HISTORY: ITS.REASON CT Reason: Pain TECHNIQUE: Axial computed tomography images of the abdomen and pelvis with intravenous contrast. CTDI is 13 mGy and DLP is 777 mGy-cm. This CT exam was performed using one or more of the following dose reduction techniques: automated exposure control, adjustment of the mA and/or kV according to patient size, and/or use of iterative reconstruction technique. COMPARISON: CT abdomen 04/19/17 FINDINGS: Lung bases: No mass. No consolidation. ABDOMEN: Liver: Nodular contour. Gallbladder and bile ducts: Unremarkable. Pancreas: Unremarkable. Spleen: Unremarkable. Adrenals: Unremarkable. Kidneys and ureters: No hydronephrosis. Cysts. Stomach and bowel: No bowel obstruction. No bowel wall thickening. NG tube terminates in the distal stomach. Colonic diverticulosis. PELVIS: Appendix: No evidence of appendicitis. Bladder: Unremarkable. Reproductive: Unremarkable. ABDOMEN and PELVIS: Intraperitoneal space: Unremarkable. Bones/joints: No acute fractures. Fusion hardware is intact. 3 mm anterolisthesis of L5 on S1 secondary bilateral L5 pars defects. Soft tissues: Fat containing left inguinal hernia. Vasculature: No abdominal aortic aneurysm. Lymph nodes: No enlarged lymph nodes. IMPRESSION: 1. Cirrhosis. 2. Colonic diverticulosis. 3. 3 mm anterolisthesis of L5 on S1 secondary bilateral L5 pars defects.
[2018-07-17] MEDS ORDERED: MORPHINE SULFATE 4 MG/ML SYRINGE IV STA (02:21)
[2018-07-17 02:31] VITALS: TEMP 98.7
[2018-07-17 02:52] VITALS: BP 106/76; PULSE 106; RESP 12
== END 2018-07-17 03:23 | disposition other institution (70) ==
LOC: EC 21:53
DX: I48.91 Unspecified atrial fibrillation (principal); E87.2 Acidosis; G40.909 Epilepsy, unspecified, not intractable, without status epilepticus; R41.82 Altered mental status, unspecified; I11.0 Hypertensive heart disease with heart failure; I50.9 Heart failure, unspecified; I25.2 Old myocardial infarction; Z79.899 Other long term (current) drug therapy; Z88.1 Allergy status to other antibiotic agents; Z95.1 Presence of aortocoronary bypass graft; Z95.5 Presence of coronary angioplasty implant and graft; Z98.1 Arthrodesis status; Z86.73 Personal history of transient ischemic attack (TIA), and cerebral infarction without residual deficits
CPT/HCPCS: 99291; 36556; 31500; 36415 ×2; 36600; 93005; 80164; 80053; 82805; 83605 ×2; 84484; 85025; 85610; 85730; 81001; 87040; 71045 ×2; 70450; 71275; 74177; 96365; 96375 ×2; 96376 ×3; 96361; J2543; J0330; J2060 ×2; J2270 ×2; Q9967

== ENCOUNTER 2018-08-18 17:16 | Inpatient (IN) | payer MEDICARE ==
--- NOTE | 2018-08-18 18:10 | ED ---
Male Urogenital HPI - General Chief complaint: Urogenital Stated complaint: Trouble urinating Time Seen by Provider: 08/18/18 18:03 Source: patient Mode of arrival: wheelchair Limitations: physical limitation - History of Present Illness Initial comments: 83-year-old male with history of atrial fibrillation, coronary artery disease with previous bypass, on eliquis, history of BPH presented for chief complaint of inability to urinate. Patient states that this afternoon he was unable to urinate states has been a small dribbles all day. He states he feels pressure in the lower abdomen. She denies any severe abdominal pain he denies any upper back pain she has nausea vomiting diarrhea. Denies a fever chills night sweats. Patient denies noting any hematuria. Patient denies history of kidney stones. Remaining review of system negative. Upon arrival patient appears uncomfortable but well. Nontoxic. - Related Data Home Medications Medication Instructions Recorded Confirmed Metoprolol Tartrate [Lopressor] 25 mg PO BID 01/14/15 08/18/18 Temazepam [Restoril] 30 mg PO HS PRN 09/23/16 08/18/18 ALPRAZolam [Xanax] 2 mg PO HS PRN 08/18/18 08/18/18 Apixaban [Eliquis] 5 mg PO BID 08/18/18 08/18/18 Atorvastatin Calcium [Lipitor] 10 mg PO HS 08/18/18 08/18/18 Cholecalciferol [Vitamin D3 (25 1,000 unit PO DAILY 08/18/18 08/18/18 Mcg = 1000 Iu)] Cyanocobalamin (Vitamin B-12) 2,500 mcg PO DAILY 08/18/18 08/18/18 [Vitamin B-12] Divalproex ER [Depakote ER] 500 mg PO BID 08/18/18 08/18/18 Divalproex Sodium [Depakote ER] 250 mg PO HS 08/18/18 08/18/18 Docusate [Colace] 100 mg PO DAILY PRN 08/18/18 08/18/18 Famotidine [Pepcid] 20 mg PO DAILY PRN 08/18/18 08/18/18 Finasteride [Proscar] 5 mg PO DAILY 08/18/18 08/18/18 Lisinopril [Zestril] 5 mg PO DAILY 08/18/18 08/18/18 Nitroglycerin Sl Tabs [Nitrostat] 0.4 mg SUBLINGUAL Q5M PRN 08/18/18 08/18/18 Polyethylene Glycol 3350 [Miralax] 17 gm PO DAILY PRN 08/18/18 08/18/18 Tamsulosin HCl [Flomax] 0.4 mg PO BID 08/18/18 08/18/18 Previous Rx's Medication Instructions Recorded Aspirin EC [Ecotrin Low Dose] 81 mg PO DAILY #30 tablet. 04/22/17 Allergies Allergy/AdvReac Type Severity Reaction Status Date / Time levofloxacin [From Levaquin] Allergy Rash/Hives Verified 08/18/18 19:57 amphetamine AdvReac SEIZURE Verified 08/18/18 19:57 bupropion [From Wellbutrin] AdvReac SEIZURE Verified 08/18/18 19:57 ciprofloxacin [From Cipro] AdvReac SEIZURE Verified 08/18/18 19:57 meperidine [From Demerol] AdvReac SEIZURE Verified 08/18/18 19:57 methylphenidate AdvReac SEIZURE Verified 08/18/18 19:57 [From Ritalin] tramadol AdvReac SEIZURE Verified 08/18/18 19:57 Review of Systems ROS Statement: Those systems with pertinent positive or pertinent negative responses have been documented in the HPI. ROS Other: All systems not noted in ROS Statement are negative. 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 Last Myocardial Infarction Date:: 2014 History of Any Multi-Drug Resistant Organisms: None Reported Past Surgical History: Back Surgery, Coronary Bypass/CABG, Heart Catheterization With Stent Additional Past Surgical History / Comment(s): 2009 CABG 2 vessel, PCIs/ total of 10 stents per pt/family, low back fusion/rodsx2, bilateral cataract removals/lens implants, EGD, colonoscopy. Past Anesthesia/Blood Transfusion Reactions: No Reported Reaction Date of Last Stent Placement:: 2009 Past Psychological History: Anxiety Smoking Status: Former smoker Past Alcohol Use History: None Reported Past Drug Use History: None Reported - Past Family History Mother Family Medical History: Vascular Disorder Additional Family Medical History / Comment(s): Mother from an esophageal aneurysm rupture at the age of 83 yrs. Father Family Medical History: Cancer Additional Family Medical History / Comment(s): Father of lung cancer. He was an exsmoker. Brother(s) Additional Family Medical History / Comment(s): pt reports his brother to had a cardica hx General Exam - General Exam Comments Initial Comments: General: The patient is awake and alert, in no distress Eye: Pupils are equal, round and reactive to light, extra-ocular movements are intact. No nystagmus. There is normal conjunctiva bilaterally. No signs of icterus. Ears, nose, mouth and throat: There are moist mucous membranes and no oral lesions. Neck: The neck is supple, there is no tenderness or JVD. Cardiovascular: There is a regular rate and rhythm. No murmur, rub or gallop is appreciated. Respiratory: Lungs are clear to auscultation, respirations are non-labored, breath sounds are equal. No wheezes, stridor, rales, or rhonchi. Gastrointestinal: Soft, non-distended, non-tender abdomen without masses or organomegaly noted. There is no rebound or guarding present. No CVA tenderness. Bowel sounds are unremarkable.No pulsatile masses. Musculoskeletal: Normal ROM, no tenderness. Strength 5/5. Sensation intact. Radial and DP pulses equal bilaterally 2+. b/l LE edema. Neurological: A&O x 3. CN II-XII intact, There are no obvious motor or sensory deficits. Coordination appears grossly intact. Speech is normal. Skin: Skin is warm and dry and no rashes or lesions are noted. Psychiatric: Cooperative, appropriate mood & affect, normal judgment. Limitations: physical limitation Course Vital Signs 08/18/18 08/18/18 17:49 21:00 Temperature 99.5 F Pulse Rate 66 89 Respiratory 20 20 Rate Blood Pressure 134/78 127/72 O2 Sat by Pulse 95 96 Oximetry - Reevaluation(s) Reevaluation #1: 15 minutes after seeing that he was complaining of chest pain. Patient was provided aspirin, blood pressure on the monitor was lower aspect of normal. Will hold nitro at this time. Patient denies shortness of breath. Patient denies severe abdominal pain. States he has experienced on and off chest pain for years. None in the last 2-3 weeks. 08/18/18 23:42 Medical Decision Making - Medical Decision Making 83-year-old male presenting for urinary retention. Patient had 598, however on catherization >1000. Mansi in color, no large clots or bright red blood noted. Patient states she had relief. However 15 minutes into patient examination he complained of chest pain. Patient given aspirin. Blood pressure. At the lower aspect of normal multiple nitro. Patient given morphine. States his chest pain subsided. EKG did show some mild depression in V5 and V6. Did have an EKG immediately evaluated by attending provider Dr. Blank, this was compared to previous. No ST elevation. Patient has history of afib and CHF. BNP near baseline slight increase, no signficant effusions on CXR. Rate controlled Afib. Patient now resting comfortably in bed. However given patient's cardiac history of be admitted with cardiology evaluation. Urology will also be on consult for urinary retention. Patient states he has experiencing urinary retention the past. Patient has history of BPH. Patient was admitted to the floor after attending provider spoke with Dr. Levin. No further orders. Patient agreeable with plan and admission at this time. She was evaluated in person by my attending provider Dr. Blank who is agreeable with admission and care plan. - Lab Data Result diagrams: 08/18/18 18:32 08/18/18 18:32 Lab Results 08/18/18 08/18/18 08/18/18 Range/Units 18:32 18:32 18:32 WBC 5.0 (3.8-10.6) k/uL RBC 3.64 L (4.30-5.90) m/uL Hgb 11.3 L D (13.0-17.5) gm/dL Hct 34.5 L (39.0-53.0) % MCV 94.9 (80.0-100.0) fL MCH 31.0 (25.0-35.0) pg MCHC 32.7 (31.0-37.0) g/dL RDW 16.5 H (11.5-15.5) % Plt Count 160 (150-450) k/uL Neutrophils % 79 % Lymphocytes % 11 % Monocytes % 6 % Eosinophils % 1 % Basophils % 0 % Neutrophils # 4.0 (1.3-7.7) k/uL Lymphocytes # 0.6 L (1.0-4.8) k/uL Monocytes # 0.3 (0-1.0) k/uL Eosinophils # 0.1 (0-0.7) k/uL Basophils # 0.0 (0-0.2) k/uL Anisocytosis Slight PT (9.0-12.0) sec INR (<1.2) APTT (22.0-30.0) sec Sodium 132 L (137-145) mmol/L Potassium 3.7 (3.5-5.1) mmol/L Chloride 94 L (98-107) mmol/L Carbon Dioxide 27 (22-30) mmol/L Anion Gap 11 mmol/L BUN 15 (9-20) mg/dL Creatinine 1.18 (0.66-1.25) mg/dL Est GFR (CKD-EPI)AfAm 65 (>60 ml/min/1.73 sqM) Est GFR (CKD-EPI)NonAf 56 (>60 ml/min/1.73 sqM) Glucose 111 H (74-99) mg/dL Calcium 9.4 (8.4-10.2) mg/dL Magnesium 1.5 L (1.6-2.3) mg/dL Total Bilirubin 0.6 (0.2-1.3) mg/dL AST 35 (17-59) U/L ALT 17 L (21-72) U/L Alkaline Phosphatase 67 (38-126) U/L Troponin I (0.000-0.034) ng/mL NT-Pro-B Natriuret Pep 7320 pg/mL Total Protein 6.9 (6.3-8.2) g/dL Albumin 3.7 (3.5-5.0) g/dL Urine Color Urine Appearance (Clear) Urine pH (5.0-8.0) Ur Specific [place] (1.001-1.035) Urine Protein (Negative) Urine Glucose (UA) (Negative) Urine Ketones (Negative) Urine Blood (Negative) Urine Nitrite (Negative) Urine Bilirubin (Negative) Urine Urobilinogen (<2.0) mg/dL Ur Leukocyte Esterase (Negative) Urine RBC (0-5) /hpf Urine WBC (0-5) /hpf Urine WBC Clumps (None) /hpf Urine Bacteria (None) /hpf 08/18/18 08/18/18 08/18/18 Range/Units 18:32 18:32 19:00 WBC (3.8-10.6) k/uL RBC (4.30-5.90) m/uL Hgb (13.0-17.5) gm/dL Hct (39.0-53.0) % MCV (80.0-100.0) fL MCH (25.0-35.0) pg MCHC (31.0-37.0) g/dL RDW (11.5-15.5) % Plt Count (150-450) k/uL Neutrophils % % Lymphocytes % % Monocytes % % Eosinophils % % Basophils % % Neutrophils # (1.3-7.7) k/uL Lymphocytes # (1.0-4.8) k/uL Monocytes # (0-1.0) k/uL Eosinophils # (0-0.7) k/uL Basophils # (0-0.2) k/uL Anisocytosis PT 10.5 (9.0-12.0) sec INR 1.0 (<1.2) APTT 33.3 H (22.0-30.0) sec Sodium (137-145) mmol/L Potassium (3.5-5.1) mmol/L Chloride (98-107) mmol/L Carbon Dioxide (22-30) mmol/L Anion Gap mmol/L BUN (9-20) mg/dL Creatinine (0.66-1.25) mg/dL Est GFR (CKD-EPI)AfAm (>60 ml/min/1.73 sqM) Est GFR (CKD-EPI)NonAf (>60 ml/min/1.73 sqM) Glucose (74-99) mg/dL Calcium (8.4-10.2) mg/dL Magnesium (1.6-2.3) mg/dL Total Bilirubin (0.2-1.3) mg/dL AST (17-59) U/L ALT (21-72) U/L Alkaline Phosphatase (38-126) U/L Troponin I 0.012 (0.000-0.034) ng/mL NT-Pro-B Natriuret Pep pg/mL Total Protein (6.3-8.2) g/dL Albumin (3.5-5.0) g/dL Urine Color Yellow Urine Appearance Cloudy (Clear) Urine pH 5.5 (5.0-8.0) Ur Specific [place] 1.009 (1.001-1.035) Urine Protein Trace H (Negative) Urine Glucose (UA) Negative (Negative) Urine Ketones Negative (Negative) Urine Blood Moderate H (Negative) Urine Nitrite Positive (Negative) Urine Bilirubin Negative (Negative) Urine Urobilinogen <2.0 (<2.0) mg/dL Ur Leukocyte Esterase Large H (Negative) Urine RBC >182 H (0-5) /hpf Urine WBC >182 H (0-5) /hpf Urine WBC Clumps Few H (None) /hpf Urine Bacteria Rare H (None) /hpf - EKG Data EKG Comments: Ventricular rate 99 bpm, QR congregational 90 ms, QT/QTC 350/449. This is atrial fibrillation. No depression in leads V5 and V6. No ST elevation. Ekg interpretted by myself and Dr. blank. Compared to that of 07/2018. Disposition Clinical Impression: Chest pain, Urinary retention Disposition: ADMITTED IP TO THIS HOSP Condition: Stable Is patient prescribed a controlled substance at d/c from ED?: No Time of Disposition: 21:20 Decision to Admit Reason: Admit from EC Decision Date: 08/18/18 Decision Time: 21:20
[2018-08-18] MEDS ORDERED: ASPIRIN 81 MG PO STA (18:12)
[2018-08-18] MEDS ORDERED: MORPHINE SULFATE 2 MG/ML SYRINGE IVP STA ×2 (18:13→20:50)
[2018-08-18] MEDS ORDERED: NITROGLYCERIN SL TABS 0.4 MG TAB SUBLINGUAL STA (18:19)
[2018-08-18] MEDS ORDERED: LIDOCAINE URO-JET JELLY 2% 5 ML KIT URETHRAL ONE (18:40)
[2018-08-18 19:13] LABS: Anisocytosis Slight; Basophils % (A) 0 %; Eosinophils # (A) 0.1 k/uL (0-0.7); Eosinophils % (A) 1 %; HCT 34.5 % (39.0-53.0); Lymphocytes # (A) 0.6 k/uL (1.0-4.8); Lymphocytes % (A) 11 %; MCHC 32.7 g/dL (31.0-37.0); MCV 94.9 fL (80.0-100.0); Mean Platelet Volume 7.3; Monocytes # (A) 0.3 k/uL (0-1.0); Monocytes % (A) 6 %; Neutrophils % (A) 79 %; Platelet Count 160 k/uL (150-450); RBC 3.64 m/uL (4.30-5.90); RDW 16.5 % (11.5-15.5)
[2018-08-18 19:17] LABS: Albumin 3.7 g/dL (3.5-5.0); Calcium 9.4 mg/dL (8.4-10.2); Magnesium 1.5 mg/dL (1.6-2.3); Potassium 3.7 mmol/L (3.5-5.1); Total Bilirubin 0.6 mg/dL (0.2-1.3); Total Protein 6.9 g/dL (6.3-8.2)
[2018-08-18 19:22] LABS: Partial Thromboplastin Time 33.3 sec (22.0-30.0); Prothrombin Time 10.5 sec (9.0-12.0)
[2018-08-18 19:26] LABS: Appearance,Urine Cloudy (Clear); Bacteria,Urine Rare /hpf; Bilirubin,Urine Negative (Negative); Blood,Urine Moderate (Negative); Color,Urine Yellow; Glucose,Urine (UA) Negative (Negative); Ketones,Urine Negative (Negative); Leukocyte Esterase,Urine Large (Negative); Nitrite,Urine Positive (Negative); PH, Urine 5.5 (5.0-8.0); Protein,Urine Trace (Negative); RBC,Urine >182 /hpf (0-5); Specific Gravity,Urine 1.009 (1.001-1.035); Urobilinogen,Urine <2.0 mg/dL (<2.0); WBC,Urine >182 /hpf (0-5)
[2018-08-18 19:28] LABS: HGB 11.3 gm/dL (13.0-17.5)
--- NOTE | 2018-08-18 19:38 | XR ---
EXAMINATION TYPE: XR chest 2V DATE OF EXAM: 08/18/2018 COMPARISON: 07/17/2018 HISTORY: Chest pain TECHNIQUE: Frontal and lateral views of the chest are obtained. FINDINGS: There is no heart failure nor confluent pneumonic infiltrate. There are sternal wires. The re are chest leads. There is slight blunting left costophrenic angle. Thoracic aorta is atheromatous. IMPRESSION: Small left pleural effusion. There is improvement compared to last exam. There is cleari ng of the mild heart failure.
[2018-08-18] MEDS ORDERED: cefTRIAXone IN SWFI 1,000 MG/10 ML SYRINGE IVP STA (19:39)
[2018-08-18] MEDS ORDERED: NITROGLYCERIN SL TABS 0.4 MG TAB SUBLINGUAL PRN ×2 (21:18→22:36)
[2018-08-18] MEDS ORDERED: Potassium Replacement Protocol 1 EACH MISC MISCELLANE PRN (22:36)
[2018-08-18] MEDS ORDERED: Magnesium Replacement Protocol 1 EACH MISC MISCELLANE PRN (22:36)
[2018-08-18] MEDS ORDERED: FAMOTIDINE 20 MG TAB PO PRN (22:36)
[2018-08-18] MEDS ORDERED: DOCUSATE 100 MG CAP PO PRN (22:36)
[2018-08-18] MEDS ORDERED: POLYETHYLENE GLYCOL 3350 17 GM POWD.PACK PO PRN (22:36)
[2018-08-18] MEDS ORDERED: METOPROLOL TARTRATE 25 MG TAB PO STA (22:59)
[2018-08-18] MEDS ORDERED: TAMSULOSIN 0.4 MG CAP.ER.24H PO STA (22:59)
[2018-08-18] MEDS ORDERED: APIXABAN 5 MG TAB PO ONE (23:13)
[2018-08-18] MEDS ORDERED: ATORVASTATIN 10 MG TAB PO ONE (23:14)
[2018-08-19] MEDS ORDERED: POTASSIUM CHLORIDE ER 20 MEQ TAB.ER PO STA (02:05)
[2018-08-19] MEDS: MAGNESIUM SULFATE-D5W PMX 1 GM in DEXTROSE/WATER 1 100ML.BAG IVPB SCH ×2 (02:14→03:34)
[2018-08-19 07:23] LABS: Albumin 3.3 g/dL (3.5-5.0); Calcium 9.2 mg/dL (8.4-10.2); Magnesium 2.2 mg/dL (1.6-2.3); Potassium 4.3 mmol/L (3.5-5.1); Total Bilirubin 0.6 mg/dL (0.2-1.3); Total Protein 6.4 g/dL (6.3-8.2)
[2018-08-19 07:24] LABS: Anisocytosis Slight; HCT 35.3 % (39.0-53.0); HGB 11.2 gm/dL (13.0-17.5); MCH 30.7 pg (25.0-35.0); MCHC 31.6 g/dL (31.0-37.0); MCV 97.1 fL (80.0-100.0); Macrocytosis Slight; Platelet Count 136 k/uL (150-450); RBC 3.64 m/uL (4.30-5.90); RDW 17.1 % (11.5-15.5); WBC 3.8 k/uL (3.8-10.6)
[2018-08-19] MEDS: ASPIRIN 81 MG PO SCH (07:49)
[2018-08-19] MEDS: TAMSULOSIN 0.4 MG CAP.ER.24H PO SCH ×2 (07:49→21:35)
[2018-08-19] MEDS: DIVALPROEX ER 500 MG TAB.ER.24H PO SCH ×2 (07:49→21:33)
[2018-08-19] MEDS: CHOLECALCIFEROL 1,000 UNIT TAB PO SCH (07:49)
[2018-08-19] MEDS: FINASTERIDE 5 MG TAB PO SCH (07:50)
[2018-08-19] MEDS: CYANOCOBALAMIN 500 MCG TAB PO SCH (07:50)
[2018-08-19] MEDS: APIXABAN 5 MG TAB PO SCH ×2 (07:50→21:34)
[2018-08-19] MEDS ORDERED: METOPROLOL TARTRATE 25 MG TAB PO SCH (09:00)
[2018-08-19] MEDS ORDERED: LISINOPRIL 5 MG TAB PO SCH (09:00)
[2018-08-19] MEDS ORDERED: ASPIRIN 325 MG TAB PO SCH (09:00)
[2018-08-19] MEDS: SPIRONOLACTONE 25 MG TAB PO SCH (11:27)
[2018-08-19] MEDS ORDERED: METOPROLOL TARTRATE 25 MG TAB PO STA (12:10)
--- NOTE | 2018-08-19 12:10 | P.GSCN ---
History of Present Illness Consult date: 08/19/18 History of present illness: The patient is an 83 -year-old gentleman who was admitted to the hospital with urine retention and chest pain. Patient states for the last week he has had difficulty urinating. He is intermittently confused when I interview him. He states that he was urinating okay until about a week ago when he began to have trouble. He would urinate frequently and just dribble. He was catheterized for urine retention. His urinalysis is inflamed. He was started on antibiotics but I do not see any evidence urine culture. He states that he urinated well before this urine retention out from uncertain as to the exact value of this history is he is constantly asking to be discharged home. He is oriented to place but not day. He was on tamsulosin prior to coming in the hospital. 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 Last Myocardial Infarction Date:: 2014 History of Any Multi-Drug Resistant Organisms: None Reported Past Surgical History: Back Surgery, Coronary Bypass/CABG, Heart Catheterization With Stent Additional Past Surgical History / Comment(s): 2009 CABG 2 vessel, PCIs/ total of 10 stents per pt/family, low back fusion/rodsx2, bilateral cataract removals/lens implants, EGD, colonoscopy. Past Anesthesia/Blood Transfusion Reactions: No Reported Reaction Date of Last Stent Placement:: 2009 Past Psychological History: Anxiety Smoking Status: Former smoker Past Alcohol Use History: None Reported Past Drug Use History: None Reported - Past Family History Mother Family Medical History: Vascular Disorder Additional Family Medical History / Comment(s): Mother from an esophageal aneurysm rupture at the age of 83 yrs. Father Family Medical History: Cancer Additional Family Medical History / Comment(s): Father of lung cancer. He was an exsmoker. Brother(s) Additional Family Medical History / Comment(s): pt reports his brother to had a cardica hx Medications and Allergies Home Medications Medication Instructions Recorded Confirmed Type Metoprolol Tartrate [Lopressor] 25 mg PO BID 01/14/15 08/18/18 History Temazepam [Restoril] 30 mg PO HS PRN 09/23/16 08/18/18 History Aspirin EC [Ecotrin Low Dose] 81 mg PO DAILY #30 tablet. 04/22/17 08/18/18 Rx ALPRAZolam [Xanax] 2 mg PO HS PRN 08/18/18 08/18/18 History Apixaban [Eliquis] 5 mg PO BID 08/18/18 08/18/18 History Atorvastatin Calcium [Lipitor] 10 mg PO HS 08/18/18 08/18/18 History Cholecalciferol [Vitamin D3 (25 1,000 unit PO DAILY 08/18/18 08/18/18 History Mcg = 1000 Iu)] Cyanocobalamin (Vitamin B-12) 2,500 mcg PO DAILY 08/18/18 08/18/18 History [Vitamin B-12] Divalproex ER [Depakote ER] 500 mg PO BID 08/18/18 08/18/18 History Divalproex Sodium [Depakote ER] 250 mg PO HS 08/18/18 08/18/18 History Docusate [Colace] 100 mg PO DAILY PRN 08/18/18 08/18/18 History Famotidine [Pepcid] 20 mg PO DAILY PRN 08/18/18 08/18/18 History Finasteride [Proscar] 5 mg PO DAILY 08/18/18 08/18/18 History Lisinopril [Zestril] 5 mg PO DAILY 08/18/18 08/18/18 History Nitroglycerin Sl Tabs [Nitrostat] 0.4 mg SUBLINGUAL Q5M PRN 08/18/18 08/18/18 History Polyethylene Glycol 3350 [Miralax] 17 gm PO DAILY PRN 08/18/18 08/18/18 History Tamsulosin HCl [Flomax] 0.4 mg PO BID 08/18/18 08/18/18 History Allergies Allergy/AdvReac Type Severity Reaction Status Date / Time levofloxacin [From Levaquin] Allergy Rash/Hives Verified 08/18/18 19:57 amphetamine AdvReac SEIZURE Verified 08/18/18 19:57 bupropion [From Wellbutrin] AdvReac SEIZURE Verified 08/18/18 19:57 ciprofloxacin [From Cipro] AdvReac SEIZURE Verified 08/18/18 19:57 meperidine [From Demerol] AdvReac SEIZURE Verified 08/18/18 19:57 methylphenidate AdvReac SEIZURE Verified 08/18/18 19:57 [From Ritalin] tramadol AdvReac SEIZURE Verified 08/18/18 19:57 Surgical - Exam Vital Signs Temp Pulse Resp BP Pulse Ox 99.5 F 66 20 134/78 95 08/18/18 17:49 08/18/18 17:49 08/18/18 17:49 08/18/18 17:49 08/18/18 17:49 - General well developed, well nourished, no distress - Eyes PERRL - ENT decreased hearing - Neck trachea midline - Respiratory normal expansion, normal respiratory effort - Cardiovascular Rhythm: irregularly irregular - Abdomen Abdomen: soft, non tender - Genitourinary Indwelling catheter with clear urine. 20-30 g benign prostate normal penis with no external lesions, testicles present - Integumentary no rash, no growths - Neurologic confused, memory loss - Musculoskeletal normal posture - Psychiatric oriented to person, oriented to place Results - Labs 08/19/18 06:29 08/19/18 06:29 Abnormal Lab Results - Last 24 Hours (Table) 08/18/18 08/18/18 08/18/18 Range/Units 18:32 18:32 18:32 RBC 3.64 L (4.30-5.90) m/uL Hgb 11.3 L D (13.0-17.5) gm/dL Hct 34.5 L (39.0-53.0) % RDW 16.5 H (11.5-15.5) % Plt Count (150-450) k/uL Lymphocytes # 0.6 L (1.0-4.8) k/uL APTT 33.3 H (22.0-30.0) sec Sodium 132 L (137-145) mmol/L Chloride 94 L (98-107) mmol/L Glucose 111 H (74-99) mg/dL Magnesium 1.5 L (1.6-2.3) mg/dL ALT 17 L (21-72) U/L Albumin (3.5-5.0) g/dL Urine Protein (Negative) Urine Blood (Negative) Ur Leukocyte Esterase (Negative) Urine RBC (0-5) /hpf Urine WBC (0-5) /hpf Urine WBC Clumps (None) /hpf Urine Bacteria (None) /hpf 08/18/18 08/19/18 08/19/18 Range/Units 19:00 06:29 06:29 RBC 3.64 L (4.30-5.90) m/uL Hgb 11.2 L (13.0-17.5) gm/dL Hct 35.3 L (39.0-53.0) % RDW 17.1 H (11.5-15.5) % Plt Count 136 L (150-450) k/uL Lymphocytes # (1.0-4.8) k/uL APTT (22.0-30.0) sec Sodium 132 L (137-145) mmol/L Chloride 97 L (98-107) mmol/L Glucose (74-99) mg/dL Magnesium (1.6-2.3) mg/dL ALT 20 L (21-72) U/L Albumin 3.3 L (3.5-5.0) g/dL Urine Protein Trace H (Negative) Urine Blood Moderate H (Negative) Ur Leukocyte Esterase Large H (Negative) Urine RBC >182 H (0-5) /hpf Urine WBC >182 H (0-5) /hpf Urine WBC Clumps Few H (None) /hpf Urine Bacteria Rare H (None) /hpf Diabetes panel 08/18/18 08/19/18 Range/Units 18:32 06:29 Sodium 132 L 132 L (137-145) mmol/L Potassium 3.7 4.3 (3.5-5.1) mmol/L Chloride 94 L 97 L (98-107) mmol/L Carbon Dioxide 27 24 (22-30) mmol/L BUN 15 12 (9-20) mg/dL Creatinine 1.18 1.00 (0.66-1.25) mg/dL Glucose 111 H 98 (74-99) mg/dL Calcium 9.4 9.2 (8.4-10.2) mg/dL AST 35 35 (17-59) U/L ALT 17 L 20 L (21-72) U/L Alkaline Phosphatase 67 56 (38-126) U/L Total Protein 6.9 6.4 (6.3-8.2) g/dL Albumin 3.7 3.3 L (3.5-5.0) g/dL Triglycerides 119 (<150) mg/dL HDL Cholesterol 51 (40-60) mg/dL Calcium panel 08/18/18 08/19/18 Range/Units 18:32 06:29 Calcium 9.4 9.2 (8.4-10.2) mg/dL Albumin 3.7 3.3 L (3.5-5.0) g/dL Pituitary panel 08/18/18 08/19/18 Range/Units 18:32 06:29 Sodium 132 L 132 L (137-145) mmol/L Potassium 3.7 4.3 (3.5-5.1) mmol/L Chloride 94 L 97 L (98-107) mmol/L Carbon Dioxide 27 24 (22-30) mmol/L BUN 15 12 (9-20) mg/dL Creatinine 1.18 1.00 (0.66-1.25) mg/dL Glucose 111 H 98 (74-99) mg/dL Calcium 9.4 9.2 (8.4-10.2) mg/dL Adrenal panel 08/18/18 08/19/18 Range/Units 18:32 06:29 Sodium 132 L 132 L (137-145) mmol/L Potassium 3.7 4.3 (3.5-5.1) mmol/L Chloride 94 L 97 L (98-107) mmol/L Carbon Dioxide 27 24 (22-30) mmol/L BUN 15 12 (9-20) mg/dL Creatinine 1.18 1.00 (0.66-1.25) mg/dL Glucose 111 H 98 (74-99) mg/dL Calcium 9.4 9.2 (8.4-10.2) mg/dL Total Bilirubin 0.6 0.6 (0.2-1.3) mg/dL AST 35 35 (17-59) U/L ALT 17 L 20 L (21-72) U/L Alkaline Phosphatase 67 56 (38-126) U/L Total Protein 6.9 6.4 (6.3-8.2) g/dL Albumin 3.7 3.3 L (3.5-5.0) g/dL Assessment and Plan Assessment: Impression: Urine retention. Mental confusion. BPH with obstruction based on history. Possible urinary tract infection Recommendations: Fortunately urine culture was not obtained prior to being started on the ceftriaxone. He was on Flomax twice a day. The catheter should remain in several days and then he can be removed for voiding trial. Due to his mental confusion and the lack a culture the exact response to this will be difficult to interpret but we'll see how he responds a voiding trial. He may have to go home or to a usp with an indwelling catheter and then have a voiding trial and evaluation as an outpatient.
--- NOTE | 2018-08-19 12:14 | CONS ---
CONSULTATION Mr. Garcia is an 83-year-old male who presented to the emergency room with symptoms of urinary retention. He has a known history of chronic persistent atrial fibrillation, history of coronary artery disease, status post coronary artery bypass grafting, and subsequent percutaneous revascularization. He has been followed by Dr. Dill. He presented to the emergency room because of inability to urinate. In the emergency room a Corrales catheter was placed. Subsequently he complained of a brief episode of chest discomfort. The patient is feeling well this morning. He has no further symptoms of chest pain. He denies any dizziness or palpitations. He has some chronic peripheral edema. No clear PND or orthopnea. In 2014 he underwent stenting of a long segment of his mid and distal LAD. He was in the hospital in July of 2017, and at that time an echocardiogram showed an ejection fraction of 30% to 35%. Recent echocardiogram that was done in [facility] showed ejection fraction of 20% to 25% with mild aortic regurgitation and moderate mitral regurgitation. The patient is not very active physically. He has dyspnea on exertion but he has no chest pain. He had no further episode of seizure. He has no dizziness or palpitations. He has no syncope. He has no further chest pain. His coronary risk factors are remarkable for history of hyperlipidemia and a family history of coronary artery disease. His medications at home include: 1. Temazepam. 2. Flomax. 3. MiraLAX. 4. Lopressor 25 mg twice a day. 5. Zestril 5 mg daily. 6. Proscar. 7. Pepcid. 8. Depakote. 9. Lipitor 10 mg daily. 10.Aspirin 81 mg daily. 11.Eliquis 5 mg twice a day. 12.Xanax. REVIEW OF SYSTEMS: RESPIRATORY SYSTEM: He has some dyspnea on exertion. No wheezing. No cough. GI SYSTEM: No recent GI bleeding. No peptic ulcer disease. SYSTEM: He has the urinary retention. No dysuria. NERVOUS SYSTEM: Prior history of seizure. PHYSICAL EXAMINATION: He is an 83-year-old male, alert, confused at times. Blood pressure 178/80 with a heart rate in the 90s. HEAD: Normocephalic. EYES: Sclerae anicteric. NECK: Good carotid upstroke. No bruit. LUNGS: Clear to auscultation. HEART: Irregularly irregular with systolic murmur. No diastolic murmur. No rub. ABDOMEN: Soft, nontender. Positive bowel sounds. No organomegaly. EXTREMITIES: Plus 1 edema. LAB DATA: Lab data revealed a hemoglobin of 11.2, white blood cells of 3.8, platelet count of 136, BUN and creatinine of 12 and 1, potassium 4.3. Troponin 0.012, 0.014 and 0.013. IMPRESSION: 1. Urinary retention. Workup in progress. 2. Elevated NT-Pro-BNP with severe cardiomyopathy. The patient has peripheral edema but no clear evidence of lung congestion. His EKG showed atrial fibrillation with no acute ST-segment changes and his chest x-ray that was obtained yesterday showed improvement, with clearing of the heart failure he had on prior admission. His NT- Pro-BNP has been elevated in the past. 3. History of coronary artery disease, status post coronary artery bypass grafting and percutaneous revascularization. 4. Chronic persistent atrial fibrillation. 5. Severe cardiomyopathy. 6. History of hyperlipidemia. RECOMMENDATIONS: From the cardiac standpoint, I will continue the anticoagulation as present. I will increase the dose of his beta davide and CORWIN inhibitor. I will add to his regimen Aldactone, follow his renal function, increase his activity. I do not see any evidence of acute ischemic event at this time. Thank you for this consult. Will follow with you. KARLI / CHERYLN: [id number] /
--- NOTE | 2018-08-19 13:47 | P.HPIM ---
History of Present Illness Chief Complaint: Chest pain and urinary retention 82-year-old gentleman who comes into the ER for urinary retention. Patient says that he was having difficulty urinating and was having just small dribbles all day yesterday. Patient was also having pressure in the lower abdominal came into the ER. While in the ER the patient said that he started having chest pain. He said that the chest pain got betteR. Now he is having no chest pain. 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 Last Myocardial Infarction Date:: 2014 History of Any Multi-Drug Resistant Organisms: None Reported Past Surgical History: Back Surgery, Coronary Bypass/CABG, Heart Catheterization With Stent Additional Past Surgical History / Comment(s): 2009 CABG 2 vessel, PCIs/ total of 10 stents per pt/family, low back fusion/rodsx2, bilateral cataract removals/lens implants, EGD, colonoscopy. Past Anesthesia/Blood Transfusion Reactions: No Reported Reaction Date of Last Stent Placement:: 2009 Past Psychological History: Anxiety Smoking Status: Former smoker Past Alcohol Use History: None Reported Past Drug Use History: None Reported - Past Family History Mother Family Medical History: Vascular Disorder Additional Family Medical History / Comment(s): Mother from an esophageal aneurysm rupture at the age of 83 yrs. Father Family Medical History: Cancer Additional Family Medical History / Comment(s): Father of lung cancer. He was an exsmoker. Brother(s) Additional Family Medical History / Comment(s): pt reports his brother to had a cardica hx Medications and Allergies Home Medications Medication Instructions Recorded Confirmed Type Metoprolol Tartrate [Lopressor] 25 mg PO BID 01/14/15 08/18/18 History Temazepam [Restoril] 30 mg PO HS PRN 09/23/16 08/18/18 History Aspirin EC [Ecotrin Low Dose] 81 mg PO DAILY #30 tablet. 04/22/17 08/18/18 Rx ALPRAZolam [Xanax] 2 mg PO HS PRN 08/18/18 08/18/18 History Apixaban [Eliquis] 5 mg PO BID 08/18/18 08/18/18 History Atorvastatin Calcium [Lipitor] 10 mg PO HS 08/18/18 08/18/18 History Cholecalciferol [Vitamin D3 (25 1,000 unit PO DAILY 08/18/18 08/18/18 History Mcg = 1000 Iu)] Cyanocobalamin (Vitamin B-12) 2,500 mcg PO DAILY 08/18/18 08/18/18 History [Vitamin B-12] Divalproex ER [Depakote ER] 500 mg PO BID 08/18/18 08/18/18 History Divalproex Sodium [Depakote ER] 250 mg PO HS 08/18/18 08/18/18 History Docusate [Colace] 100 mg PO DAILY PRN 08/18/18 08/18/18 History Famotidine [Pepcid] 20 mg PO DAILY PRN 08/18/18 08/18/18 History Finasteride [Proscar] 5 mg PO DAILY 08/18/18 08/18/18 History Lisinopril [Zestril] 5 mg PO DAILY 08/18/18 08/18/18 History Nitroglycerin Sl Tabs [Nitrostat] 0.4 mg SUBLINGUAL Q5M PRN 08/18/18 08/18/18 History Polyethylene Glycol 3350 [Miralax] 17 gm PO DAILY PRN 08/18/18 08/18/18 History Tamsulosin HCl [Flomax] 0.4 mg PO BID 08/18/18 08/18/18 History Allergies Allergy/AdvReac Type Severity Reaction Status Date / Time levofloxacin [From Levaquin] Allergy Rash/Hives Verified 08/18/18 19:57 amphetamine AdvReac SEIZURE Verified 08/18/18 19:57 bupropion [From Wellbutrin] AdvReac SEIZURE Verified 08/18/18 19:57 ciprofloxacin [From Cipro] AdvReac SEIZURE Verified 08/18/18 19:57 meperidine [From Demerol] AdvReac SEIZURE Verified 08/18/18 19:57 methylphenidate AdvReac SEIZURE Verified 08/18/18 19:57 [From Ritalin] tramadol AdvReac SEIZURE Verified 08/18/18 19:57 Physical Exam Vitals: Vital Signs Temp Pulse Pulse Resp BP BP Pulse Ox 08/19/18 11:48 129 H 08/19/18 11:24 97.7 F 129 H 18 185/96 94 L 08/19/18 08:00 91 08/19/18 07:56 98 F 91 18 178/84 97 08/19/18 03:27 98.2 F 76 18 142/95 97 08/18/18 22:30 99.2 F 72 16 150/71 96 08/18/18 21:00 89 20 127/72 96 08/18/18 17:49 99.5 F 66 20 134/78 95 Intake and Output 08/18/18 08/19/18 08/19/18 22:59 06:59 14:59 Intake Total 180 Output Total 1150 550 Balance -1150 -550 180 Intake: Oral 180 Output: Urine 1150 550 Uretheral (Corrales) 550 Other: Weight 79.379 kg 85 kg On exam, alert and oriented x3. HEENT: Conjunctivae normal. eyes normal. NECK: No JVD. No thyroid enlargement. No LNs CARDIOVASCULAR: S1, S2 positive RESPIRATION: Breath sounds diminished in the bases. No rhonchi or crackles. No bronchial breathing. ABDOMEN: Soft, nontender . No guarding. no masses palpable. No ascites, No hepatosplenomegaly.Bowel sounds heard. LEGS: No edema. no swelling NERVOUS SYSTEM: Cranial N 2-12 grossly normal. Moves all 4 limbs. No focal deficits. No sensory deficit. No signs of cerebellar dysfucntion. Skin: no ulcer no rash Results CBC & Chem 7: 08/19/18 06:29 08/19/18 06:29 Labs: Abnormal Lab Results - Last 24 Hours (Table) 08/18/18 08/18/18 08/18/18 Range/Units 18:32 18:32 18:32 RBC 3.64 L (4.30-5.90) m/uL Hgb 11.3 L D (13.0-17.5) gm/dL Hct 34.5 L (39.0-53.0) % RDW 16.5 H (11.5-15.5) % Plt Count (150-450) k/uL Lymphocytes # 0.6 L (1.0-4.8) k/uL APTT 33.3 H (22.0-30.0) sec Sodium 132 L (137-145) mmol/L Chloride 94 L (98-107) mmol/L Glucose 111 H (74-99) mg/dL Magnesium 1.5 L (1.6-2.3) mg/dL ALT 17 L (21-72) U/L Albumin (3.5-5.0) g/dL Urine Protein (Negative) Urine Blood (Negative) Ur Leukocyte Esterase (Negative) Urine RBC (0-5) /hpf Urine WBC (0-5) /hpf Urine WBC Clumps (None) /hpf Urine Bacteria (None) /hpf 08/18/18 08/19/18 08/19/18 Range/Units 19:00 06:29 06:29 RBC 3.64 L (4.30-5.90) m/uL Hgb 11.2 L (13.0-17.5) gm/dL Hct 35.3 L (39.0-53.0) % RDW 17.1 H (11.5-15.5) % Plt Count 136 L (150-450) k/uL Lymphocytes # (1.0-4.8) k/uL APTT (22.0-30.0) sec Sodium 132 L (137-145) mmol/L Chloride 97 L (98-107) mmol/L Glucose (74-99) mg/dL Magnesium (1.6-2.3) mg/dL ALT 20 L (21-72) U/L Albumin 3.3 L (3.5-5.0) g/dL Urine Protein Trace H (Negative) Urine Blood Moderate H (Negative) Ur Leukocyte Esterase Large H (Negative) Urine RBC >182 H (0-5) /hpf Urine WBC >182 H (0-5) /hpf Urine WBC Clumps Few H (None) /hpf Urine Bacteria Rare H (None) /hpf Thrombosis Risk Factor Assmnt - Choose All That Apply Each Factor Represents 1 point: Abnormal pulmonary function (COPD), Obesity (BMI >25), Swollen legs (current) Other Risk Factors: Yes Each Risk Factor Represents 3 Points: Age 75 years or older Other congenital or acquired thrombophilia - If yes, enter type in comment: No Thrombosis Risk Factor Assessment Total Risk Factor Score: 6 Thrombosis Risk Factor Assessment Level: High Risk Assessment and Plan Assessment: - Chest pain need to rule out the cardiac cause - Urinary retention - History of A. fib - History of CVA - History of heart failure - History of COPD - History of dementia - History of GERD - History of hyperlipidemia - History of hypertension - History of CAD status post CABG - History of seizure disorder - History of arthritis plan - We will admit the patient to [facility] with telemetry - at the time examination the the patient does not complain of any chest pain. Cardiology is consulted. - Patient has a Corrales placed for urinary retention. Urology consulted - We will resume the patient's home medications - DVT and GI prophylaxis - We'll order for lab work in the morning - Expected length of stay: 2 midnights - Patient is no code
[2018-08-19] MEDS: METOPROLOL TARTRATE 25 MG TAB PO SCH ×2 (16:27→21:36)
[2018-08-19] MEDS: ATORVASTATIN 10 MG TAB PO SCH (21:33)
[2018-08-19] MEDS: LISINOPRIL 5 MG TAB PO SCH (21:34)
[2018-08-19] MEDS: DIVALPROEX ER 250 MG TAB.ER.24H PO SCH (21:40)
[2018-08-19] MEDS ORDERED: APIXABAN 5 MG TAB PO ONE (22:59)
[2018-08-19] MEDS ORDERED: ATORVASTATIN 10 MG TAB PO ONE (23:00)
[2018-08-19] MEDS: QUEtiapine 25 MG TAB PO SCH (23:40)
[2018-08-20] MEDS ORDERED: LORazepam 2 MG/ML INJ IV ONE (00:20)
[2018-08-20 07:42] LABS: Calcium 9.1 mg/dL (8.4-10.2); Potassium 4.3 mmol/L (3.5-5.1)
[2018-08-20] MEDS: APIXABAN 5 MG TAB PO SCH ×2 (07:55→20:34)
[2018-08-20] MEDS: METOPROLOL TARTRATE 25 MG TAB PO SCH (07:55)
[2018-08-20] MEDS: SPIRONOLACTONE 25 MG TAB PO SCH (07:55)
[2018-08-20] MEDS: ASPIRIN 81 MG PO SCH (07:55)
[2018-08-20] MEDS: LISINOPRIL 5 MG TAB PO SCH ×2 (07:55→20:34)
[2018-08-20] MEDS: TAMSULOSIN 0.4 MG CAP.ER.24H PO SCH ×2 (07:57→20:34)
[2018-08-20] MEDS: DIVALPROEX ER 500 MG TAB.ER.24H PO SCH ×2 (07:57→20:34)
[2018-08-20] MEDS: FINASTERIDE 5 MG TAB PO SCH (08:00)
[2018-08-20] MEDS: CHOLECALCIFEROL 1,000 UNIT TAB PO SCH (08:01)
[2018-08-20] MEDS: CYANOCOBALAMIN 500 MCG TAB PO SCH (08:01)
[2018-08-20 11:25] VITALS: BMI 29.3
--- NOTE | 2018-08-20 12:08 | PN ---
PROGRESS NOTE Mr. Garcia is an 83-year-old male who presented with urinary retention. He has a Corrales catheter in. He has history of chronic persistent atrial fibrillation, history of coronary artery disease, status post coronary artery bypass grafting. He has been followed by Dr. Dill. He has no chest discomfort. His breathing has been stable. He feels tired and he is anxious to go home. He has no dizziness or palpitation. No nausea. He was seen by Dr. Simpson yesterday and continues to be at this time on Eliquis 5 mg twice a day, aspirin 81 mg daily, Lipitor 10 mg daily, lisinopril 5 mg twice a day, metoprolol tartrate 25 mg 3 times a day and spironolactone 25 mg daily. PHYSICAL EXAMINATION: Blood pressure 160/90 with a heart rate in the 130s. LUNGS: Clear. HEART: Irregular regular S1, S2. No S3 with systolic murmur. ABDOMEN: Soft, nontender. EXTREMITIES: No significant edema. LAB DATA: Revealed sodium 129, BUN and creatinine 14 and 1.05, potassium 4.3, LDL of 69. IMPRESSION: 1. Urinary retention, Corrales catheter in place. 2. Atrial fibrillation persistent with rapid ventricular response. 3. History of ischemic cardiomyopathy. 4. Status post coronary artery bypass grafting. 5. Hyperlipidemia. 6. Hypertension. RECOMMENDATION: I will increase the dose of his beta davide. Will continue on the present dose of CORWIN inhibitor. If needed, the dose can be further adjusted. We will follow his sodium and depending on his progress, further recommendation will be made. MMODL / IJN: [id number] /
[2018-08-20] MEDS ORDERED: METOPROLOL TARTRATE 50 MG TAB PO STA (17:57)
[2018-08-20] MEDS: ATORVASTATIN 10 MG TAB PO SCH (20:34)
[2018-08-20] MEDS: QUEtiapine 25 MG TAB PO SCH (20:34)
[2018-08-20] MEDS: METOPROLOL TARTRATE 50 MG TAB PO SCH (20:35)
[2018-08-20] MEDS: DIVALPROEX ER 250 MG TAB.ER.24H PO SCH (20:36)
--- NOTE | 2018-08-20 21:59 | P.PN ---
Subjective 82-year-old gentleman who comes into the ER for urinary retention. Patient says that he was having difficulty urinating and was having just small dribbles all day yesterday. Patient was also having pressure in the lower abdominal came into the ER. While in the ER the patient said that he started having chest pain. He said that the chest pain got betteR. Now he is having no chest pain. He does not complain of any cough or shortness breath, no abdominal pain, nausea and vomiting, no diarrhea constipation, no tingling numbness of the extr emities, no itch no rash Pt hr was high this morning He was agitated last night, was given ativan and seroquel no chest pain, no racing heart no cough, no sob Objective - Vital Signs Vital signs: Vital Signs Temp 98.2 F 08/20/18 15:03 Pulse 78 08/20/18 15:03 Resp 20 08/20/18 15:03 BP 132/80 08/20/18 15:03 Pulse Ox 98 08/20/18 18:09 Intake & Output 08/20/18 08/20/18 08/21/18 06:59 18:59 06:59 Intake Total 100 624 Output Total 900 300 Balance -800 324 Weight 85 kg Intake: Intake, IV Titration 50 Amount cefTRIAXone 1 gm In 50 Sodium Chloride 0.9% 50 ml @ 100 mls/hr IVPB Q24HR [facility] Rx#:[id number] Oral 100 574 Output: Urine 900 300 Other: Voiding Method Indwelling Catheter Indwelling Catheter - Exam On exam, alert and oriented x3. HEENT: Conjunctivae normal. eyes normal. NECK: No JVD. No thyroid enlargement. No LNs CARDIOVASCULAR: S1, S2 positive RESPIRATION: Breath sounds diminished in the bases. No rhonchi or crackles. No bronchial breathing. ABDOMEN: Soft, nontender . No guarding. no masses palpable. No ascites, No hepatosplenomegaly.Bowel sounds heard. LEGS: No edema. no swelling NERVOUS SYSTEM: Cranial N 2-12 grossly normal. Moves all 4 limbs. No focal deficits. No sensory deficit. No signs of cerebellar dysfucntion. Skin: no ulcer no rash - Labs CBC & Chem 7: 08/19/18 06:29 08/20/18 06:13 Labs: Abnormal Lab Results - Last 24 Hours (Table) 08/20/18 Range/Units 06:13 Sodium 129 L (137-145) mmol/L Chloride 94 L (98-107) mmol/L Microbiology - Last 24 Hours (Table) 08/20/18 08:48 Urine Culture - Preliminary Urine,Catheterized Assessment and Plan Assessment: - Chest pain need to rule out the cardiac cause - Urinary retention - History of A. fib - History of CVA - History of heart failure - History of COPD - History of dementia - History of GERD - History of hyperlipidemia - History of hypertension - History of CAD status post CABG - History of seizure disorder - History of arthritis plan - We will admit the patient to [facility] with telemetry - at the time examination the the patient does not complain of any chest pain. Cardiology is consulted. - Patient has a Corrales placed for urinary retention. Urology consulted - We will resume the patient's home medications - DVT and GI prophylaxis - We'll order for lab work in the morning - Expected length of stay: 2 midnights - Patient is no code 08/20/2018 - Will monitor his hr - Cardio adjusted his medications - continue recopehin for possible uti - continue rest of the medications - will f/u
[2018-08-21 07:22] LABS: Glucose,Whole Blood 97 mg/dL (75-99)
[2018-08-21] MEDS: DIVALPROEX ER 500 MG TAB.ER.24H PO SCH ×2 (07:31→20:22)
[2018-08-21] MEDS: SPIRONOLACTONE 25 MG TAB PO SCH (07:31)
[2018-08-21] MEDS: APIXABAN 5 MG TAB PO SCH ×2 (07:31→20:23)
[2018-08-21] MEDS: TAMSULOSIN 0.4 MG CAP.ER.24H PO SCH ×2 (07:31→20:23)
[2018-08-21] MEDS: CYANOCOBALAMIN 500 MCG TAB PO SCH (07:31)
[2018-08-21] MEDS: METOPROLOL TARTRATE 50 MG TAB PO SCH ×2 (07:31→21:34)
[2018-08-21] MEDS: CHOLECALCIFEROL 1,000 UNIT TAB PO SCH (07:31)
[2018-08-21] MEDS: FINASTERIDE 5 MG TAB PO SCH (07:31)
[2018-08-21] MEDS: ASPIRIN 81 MG PO SCH (07:31)
[2018-08-21] MEDS: LISINOPRIL 5 MG TAB PO SCH ×2 (07:32→21:34)
--- NOTE | 2018-08-21 12:58 | XR ---
EXAMINATION TYPE: XR chest 1V DATE OF EXAM: 08/21/2018 COMPARISON: 08/18/2018 HISTORY: CHF TECHNIQUE: Single frontal view of the chest is obtained. FINDINGS: There is right upper lobe consolidation. Left lung is clear there is small bilateral effus ions. Cardiomegaly and postsurgical changes are noted. Could not exclude a nodule obscured by the rig ht upper lobe consolidation. Postsurgical changes with diffuse osteopenia and arthropathy of the shou lders. Biapical pleural thickening. IMPRESSION: 1. Right upper lobe consolidation could been the basis of pneumonia or asymmetric pulmonary edema. Th ere are bilateral lower lobe areas of infiltrate and small effusion. 2. Correlate for COPD.
[2018-08-21 13:32] LABS: Calcium 9.4 mg/dL (8.4-10.2); Potassium 4.8 mmol/L (3.5-5.1)
[2018-08-21] MEDS: FUROSEMIDE 10 MG/ML 4 ML VIAL IV SCH ×2 (14:19→21:34)
[2018-08-21] MEDS: ACETAMINOPHEN TAB 325 MG TAB PO PRN ×2 (14:52→20:22)
--- NOTE | 2018-08-21 16:16 | P.PN ---
Subjective Progress Note Date: 08/21/18 Principal diagnosis: This is an 83 year old male that was admitted for urinary retention and lower abdominal pain. Family is at the bedside asking when he will be discharged as he will receive care from [facility] and them as they are home 06/09. Patient is in no acute distress at this time and the Corrales is in place and draining. Patient denies any chest pain, abdominal pain, shortness of breath, or fever at this time. Patient is improving since Corrales insertion. Urology and cardiology consulted as patient had come in with chest pain. The patient is being closely monitored. Objective - Vital Signs Vital signs: Vital Signs Temp 98.2 F 08/21/18 14:57 Pulse 82 08/21/18 14:57 Resp 16 08/21/18 14:57 BP 105/69 08/21/18 14:57 Pulse Ox 98 08/21/18 14:23 Intake & Output 08/20/18 08/21/18 08/21/18 18:59 06:59 18:59 Intake Total 624 100 Output Total 300 300 Balance 324 -200 Weight 85 kg Intake: Intake, IV Titration 50 Amount cefTRIAXone 1 gm In 50 Sodium Chloride 0.9% 50 ml @ 100 mls/hr IVPB Q24HR [facility] Rx#:[id number] Oral 574 100 Output: Urine 300 300 Uretheral (Corrales) 150 Other: Voiding Method Indwelling Catheter Indwelling Catheter Indwelling Catheter # Bowel Movements 0 - Exam On exam patient is alert and oriented 2-3. Vital signs are stable. Patient is currently on oxygen via nasal cannula at 5L but not usually at home. HEENT: Conjunctiva normal, EOMs intact Neck: No jugular venous distention, no lymph nodes noted, supple Cardiovascular: S1, S2 heard Respiratory: Breath sounds diminished in the bases, no rhonchi or crackles noted, no wheezing noted Abdomen: Soft, non-tender, no ascites noted Legs: No edema or swelling noted, legs are elevated upon exam Nervous system: No focal deficits, moves all 4 limbs Skin: No ulcers or rash noted labs: Sodium 129, BUN 16, creatinine 1.01, BNP 16,100, potassium 4.8 Assessment: Hyponatremia secondary to hypervolemic state Urinary retention, resolved with Corrales catheter Chest pain, need to rule out cardiac cause, resolved History of A. fib History of CVA History of heart failure History of COPD History of dementia History of GERD [place] history of hyperlipidemia History of hypertension History of coronary artery disease status post CABG History of seizure disorder History of arthritis Recommendations and discussion: Will recommend continuing current medications, management, and symptomatic management. Will continue to monitor patient closely. Will continue to monitor labs closely. Awaiting cardiology follow-up at this time. Patient remains asymptomatic of any chest pain at this time. Chest xray ordered for history of CHF/ COPD and was having some low pulse ox readings in the 80's but was asymptomatic of any shortness of breath. CXR revealed bilateral lower lobes areas of infiltrate and small effusion with no signs of pneumonia. Will continue to monitor vitals closely. Prognosis is guarded. Further recommendations to follow. Possible discharge in 24-48 hours. - Labs CBC & Chem 7: 08/19/18 06:29 08/21/18 12:38 Labs: Abnormal Lab Results - Last 24 Hours (Table) 08/20/18 08/21/18 Range/Units 06:13 12:38 Sodium 129 L (137-145) mmol/L Chloride 91 L (98-107) mmol/L Carbon Dioxide 31 H (22-30) mmol/L Osmolality 269 L (280-301) mosm/kg TSH 4.800 H (0.465-4.680) mIU/L Microbiology - Last 24 Hours (Table) 08/20/18 08:48 Urine Culture - Preliminary Urine,Catheterized
[2018-08-21 18:51] LABS: T4, Free (Free Thyroxine) 1.77 ng/dL (0.78-2.19)
[2018-08-21] MEDS: ATORVASTATIN 10 MG TAB PO SCH (20:22)
[2018-08-21] MEDS: DIVALPROEX ER 250 MG TAB.ER.24H PO SCH (20:23)
[2018-08-21] MEDS: QUEtiapine 25 MG TAB PO SCH (21:34)
--- NOTE | 2018-08-21 23:45 | PN ---
PROGRESS NOTE Mr. Garcia is an 83-year-old gentleman who was admitted with urinary retention. This patient has history of chronic persistent atrial fibrillation, coronary artery disease with previous bypass surgery. The patient also had a percutaneous intervention. The patient basically came to the hospital with inability to urinate. He was seen by Urology. He is known to have an ejection fraction of 30% to 35%. The patient is sitting in the chair. Does not appear to be in acute distress. Patient has a Corrales catheter which is draining. The patient has not had any recurrence of chest pain. His lab values showed sodium level of 129. BUN and creatinine are normal now. His TSH is slightly high. Chest x-ray showed a right upper lobe consolidation, bilateral lower lobe infiltrate and small effusion; correlate for COPD. Physical examination reveals an elderly gentleman who is alert, oriented, does not appear to be in any acute distress. Blood pressure 120/70, pulse about 80. Respirations are 18. Lungs show diminished breath sounds. Heart is irregular. PLAN: Will continue with current medical therapy. Patient is on apixaban 5 mg p.o. b.i.d., atorvastatin, finasteride, Lasix 40 mg IV q.12 hours, Zestril 5 mg, metoprolol 50 mg, nitroglycerin as needed. Will continue current medical therapy. Follow up with chest x-ray. Prognosis is guarded. MMODL / IJN: [id number] /
[2018-08-22] MEDS: FINASTERIDE 5 MG TAB PO SCH (08:53)
[2018-08-22] MEDS: APIXABAN 5 MG TAB PO SCH ×2 (08:53→20:34)
[2018-08-22] MEDS: FUROSEMIDE 10 MG/ML 4 ML VIAL IV SCH (08:53)
[2018-08-22] MEDS: TAMSULOSIN 0.4 MG CAP.ER.24H PO SCH ×2 (08:53→20:34)
[2018-08-22] MEDS: CYANOCOBALAMIN 500 MCG TAB PO SCH (08:53)
[2018-08-22] MEDS: SPIRONOLACTONE 25 MG TAB PO SCH (08:53)
[2018-08-22] MEDS: ASPIRIN 81 MG PO SCH (08:54)
[2018-08-22] MEDS: METOPROLOL TARTRATE 50 MG TAB PO SCH ×2 (08:54→20:35)
[2018-08-22] MEDS: LISINOPRIL 5 MG TAB PO SCH (08:54)
[2018-08-22] MEDS: DIVALPROEX ER 500 MG TAB.ER.24H PO SCH ×2 (08:54→20:34)
[2018-08-22] MEDS: CHOLECALCIFEROL 1,000 UNIT TAB PO SCH (08:54)
[2018-08-22 09:24] LABS: Calcium 8.8 mg/dL (8.4-10.2); Potassium 3.9 mmol/L (3.5-5.1)
--- NOTE | 2018-08-22 11:18 | CDI ---
Documentation Clarification Form Date: 08/22/2018 10:51:44 AM From: Daphney Wallis RN, CCDS Admit Date: 08/20/2018 2:14:00 PM Patient Name: Rigoberto Garcia Visit Number: [id number] Discharge Date: ATTENTION: The Clinical Documentation Specialists (CDI) and [facility] Coding Staff appreciate your assistance in clarifying documentation. Please respond to the clarification below the line at the bottom and electronically sign. The CDI & [facility] Coding staff will review the response and follow-up if needed. Please note: Queries are made part of the Legal Health Record. If you have any questions, please contact the author of this message via ITS. Dr. Shiva Dill History of CHF is documented in the past medical history and attending ongoing progress notes and further clarification is needed.. History/Risk Factors: Chronic persistent atria fibrillation, Coronary artery disease Clinical Indicators: 83-year-old male with history of coronary artery disease with previous bypass surgery. He is known to have an ejection fraction of 30 to 35 %. Heart is irregular. VS/Pulse OX: 98/61 69 18 98.0 90 % RA BNP: 7320 Chest X Ray Right upper lobe consolidation could been the basis of pneumonia. There are bilateral lobes of small effusions. Correlate for COPD. Treatment: Lasix 40 mg IV Q 12 Zestril PO, Lipitor PO Lopressor PO Aldactone PO In your professional opinion, can you please clarify the acuity and type of CHF if known? Acute Systolic Heart Failure Chronic Systolic Heart Failure Acute on Chronic Systolic Heart Failure Unable to Determine Other, please specify (Last Revision: May 2017) acute on chronic CHF MTDD
--- NOTE | 2018-08-22 12:16 | P.PN ---
Subjective Progress Note Date: 08/22/18 This 83-year-old gentleman is admitted with urinary retention. Patient had a Corrales catheter and has been diuresing well. There doesn't appear to be in acute distress. Able to lie flat. No complaints of chest pain and wants to go home. His sodium levels have come up to 131. Lungs appeared to be clear. I'm going Back the dose of the Lasix and actually switched to by mouth Lasix. Possible discharge within next 24 hours Objective - Vital Signs Vital signs: Vital Signs Temp 98.0 F 08/22/18 10:40 Pulse 69 08/22/18 10:40 Resp 18 08/22/18 10:40 BP 98/61 08/22/18 10:40 Pulse Ox 90 L 08/22/18 10:40 Intake & Output 08/21/18 08/22/18 08/22/18 18:59 06:59 18:59 Intake Total 125 480 Output Total 1150 1050 950 Balance -1150 -925 -470 Intake: Oral 125 480 Output: Urine 1150 1050 950 Uretheral (Corrales) 950 Other: Voiding Method Indwelling Catheter Indwelling Catheter Indwelling Catheter # Bowel Movements 0 - Exam GENERAL EXAM: Patient is alert and oriented and doesn't appear to be in any acute distress HEENT: Normocephalic. Normal reaction of pupils, equal size, normal range of extraocular motion. No erythema or exudates in the throat. NECK: No masses, no nuchal rigidity. CHEST: No chest wall deformity. LUNGS: Equal air entry with no crackles or wheeze. HEART: S1 and S2 normal with no audible mumurs or gallops. Regular rhythm, femorals equal on both sides.. ABDOMEN: No hepatosplenomegaly, normal bowel sounds, no guarding or rigidity. SKIN: No rashes CENTRAL NERVOUS SYSTEM: No focal deficits. EXTREMITIES: Resolving edema - Labs CBC & Chem 7: 08/19/18 06:29 08/22/18 07:59 Labs: Abnormal Lab Results - Last 24 Hours (Table) 08/20/18 08/21/18 08/22/18 Range/Units 06:13 12:38 07:59 Sodium 129 L 131 L (137-145) mmol/L Chloride 91 L 93 L (98-107) mmol/L Carbon Dioxide 31 H (22-30) mmol/L BUN 21 H (9-20) mg/dL Osmolality 269 L (280-301) mosm/kg TSH 4.800 H (0.465-4.680) mIU/L Microbiology - Last 24 Hours (Table) 08/20/18 08:48 Urine Culture - Preliminary Urine,Catheterized Gram Neg Bacilli Assessment and Plan (1) Atrial fibrillation, chronic Current Visit: Yes Status: Acute Code(s): I48.2 - CHRONIC ATRIAL FIBRILLATION SNOMED Code(s): 885478555 (2) Urinary retention Current Visit: Yes Status: Acute Code(s): R33.9 - RETENTION OF URINE, UNSPECIFIED SNOMED Code(s): 398499150 (3) Chronic systolic heart failure Current Visit: Yes Status: Acute Code(s): I50.22 - CHRONIC SYSTOLIC (CONGESTIVE) HEART FAILURE SNOMED Code(s): 825503007 (4) Hyponatremia Current Visit: Yes Status: Acute Code(s): E87.1 - HYPO-OSMOLALITY AND HYPONATREMIA SNOMED Code(s): 92746599 Plan: Patient seemed to improve clinically more stable. Regarding a good amount of urine. Doesn't appear to be in acute distress. We'll switch from IV Lasix to by mouth Lasix. Continue to monitor electrolytes. Possible discharge in 24 hours
--- NOTE | 2018-08-22 12:47 | P.PN ---
Subjective Progress Note Date: 08/22/18 Principal diagnosis: This is an 83 year old male that was admitted for urinary retention and lower abdominal pain. Family is at the bedside asking when he will be discharged as he will receive care from [facility] and them as they are home 06/09. Patient is in no acute distress at this time and the Corrales is in place and draining. Patient denies any chest pain, abdominal pain, shortness of breath, or fever at this time. Patient is improving since Corrales insertion. Urology and cardiology consulted as patient had come in with chest pain. The patient is being closely monitored. Today the patient appears in no acute distress. Patient is sitting up in bed on room air and vital signs are stable. Corrales is still in place and draining with clear yellow urine. Patient is afebrile, denies any chest pain, palpitations, or shortness of breath. Patient is pleasant and suggesting to be discharged home today. Sodium has improved and is currently 131, potassium 3.9. Patient was receiving IV Lasix and will be switching over to oral Lasix. Bilateral lower leg edema has improved greatly. Assessment: Hyponatremia secondary to hypervolemic state Urinary retention, resolved Corrales catheter placement Chest pain, need to rule out cardiac cause, resolved History of A. fib History of CVA History of heart failure History of COPD History of dementia History of GERD History of hyperlipidemia History of hypertension History of coronary artery disease status post CABG History of seizure disorder History of arthritis Recommendations and discussion: Will recommend continuing current medications, management, and symptomatic management. We'll continue to monitor the patient closely and recheck electrolytes in the a.m. we'll continue to monitor vital signs closely and treat accordingly for any signs of hypotension. Continue to follow closely with cardiology and urology. Prognosis is guarded at this time area and further recommendations to follow. Will reassess for possible discharge in 24 hours. Objective - Vital Signs Vital signs: Vital Signs Temp 98.0 F 08/22/18 10:40 Pulse 69 08/22/18 10:40 Resp 18 08/22/18 10:40 BP 98/61 08/22/18 10:40 Pulse Ox 90 L 08/22/18 10:40 Intake & Output 08/21/18 08/22/18 08/22/18 18:59 06:59 18:59 Intake Total 125 480 Output Total 1150 1050 950 Balance -1150 -925 -470 Intake: Oral 125 480 Output: Urine 1150 1050 950 Uretheral (Corrales) 950 Other: Voiding Method Indwelling Catheter Indwelling Catheter Indwelling Catheter # Bowel Movements 0 - Exam On exam patient is alert and oriented 2-3. Vital signs are stable. Patient is currently on oxygen via nasal cannula at 5L but not usually at home. HEENT: Conjunctiva normal, EOMs intact Neck: No jugular venous distention, no lymph nodes noted, supple Cardiovascular: S1, S2 heard Respiratory: Breath sounds diminished in the bases, no rhonchi or crackles noted, no wheezing noted Abdomen: Soft, non-tender, no ascites noted Legs: No edema or swelling noted, legs are elevated upon exam Nervous system: No focal deficits, moves all 4 limbs Skin: No ulcers or rash noted labs: Sodium 129, BUN 16, creatinine 1.01, BNP 16,100, potassium 4.8 Assessment: Hyponatremia secondary to hypervolemic state Urinary retention, resolved with Corrales catheter Chest pain, need to rule out cardiac cause, resolved History of A. fib History of CVA History of heart failure History of COPD History of dementia History of GERD [place] history of hyperlipidemia History of hypertension History of coronary artery disease status post CABG History of seizure disorder History of arthritis Recommendations and discussion: Will recommend continuing current medications, management, and symptomatic management. Will continue to monitor patient closely. Will continue to monitor labs closely. Awaiting cardiology follow-up at this time. Patient remains asymptomatic of any chest pain at this time. Chest xray ordered for history of CHF/ COPD and was having some low pulse ox readings in the 80's but was asymptomatic of any shortness of breath. CXR revealed bilateral lower lobes areas of infiltrate and small effusion with no signs of pneumonia. Will continue to monitor vitals closely. Prognosis is guarded. Further recommendations to follow. Possible discharge in 24-48 hours. On exam patient is alert and oriented 2-3. Vitals are stable. Patient is currently in no acute distress on room air HEENT: Conjunctiva normal, EOMs intact Neck: No JVD, supple no lymph nodes noted Cardiovascular: S1, S2 heard Respiratory: Breath sounds diminished in the bases bilaterally, no rhonchi or crackles noted, no wheezing noted Abdomen: Soft, nontender Legs: No swelling noted Nervous system: No focal deficits, moves all extremities Skin: No ulcers or rash noted - Constitutional General appearance: Present: no acute distress - Labs CBC & Chem 7: 08/19/18 06:29 08/22/18 07:59 Labs: Abnormal Lab Results - Last 24 Hours (Table) 08/20/18 08/21/18 08/22/18 Range/Units 06:13 12:38 07:59 Sodium 129 L 131 L (137-145) mmol/L Chloride 91 L 93 L (98-107) mmol/L Carbon Dioxide 31 H (22-30) mmol/L BUN 21 H (9-20) mg/dL Osmolality 269 L (280-301) mosm/kg TSH 4.800 H (0.465-4.680) mIU/L Microbiology - Last 24 Hours (Table) 08/20/18 08:48 Urine Culture - Preliminary Urine,Catheterized Gram Neg Bacilli
[2018-08-22] MEDS: ACETAMINOPHEN TAB 325 MG TAB PO PRN (15:15)
[2018-08-22] MEDS ORDERED: QUEtiapine 25 MG TAB PO PRN (15:57)
[2018-08-22] MEDS ORDERED: FUROSEMIDE 40 MG TAB PO SCH (16:00)
[2018-08-22] MEDS: ATORVASTATIN 10 MG TAB PO SCH (20:34)
[2018-08-22] MEDS: LISINOPRIL 2.5 MG TAB PO SCH (20:35)
[2018-08-22] MEDS: DIVALPROEX ER 250 MG TAB.ER.24H PO SCH (20:35)
[2018-08-22] MEDS ORDERED: FUROSEMIDE 10 MG/ML 4 ML VIAL IV ONE (21:00)
--- NOTE | 2018-08-22 21:00 | P.PN ---
Subjective Progress Note Date: 08/22/18 urine culture grew e coli He should be treatd with apprpriate antibiotics THe catheter can be removed after antibiotic treatment for a voiding trial Objective - Vital Signs Vital signs: Vital Signs Temp 97.6 F 08/22/18 19:01 Pulse 76 08/22/18 20:41 Resp 15 08/22/18 19:01 BP 127/74 08/22/18 20:41 Pulse Ox 97 08/22/18 19:01 Intake & Output 08/22/18 08/22/18 08/23/18 06:59 18:59 06:59 Intake Total 125 1160 Output Total 1050 1550 Balance -925 -390 Intake: Oral 125 1160 Output: Urine 1050 1550 Uretheral (Corrales) 950 Other: Voiding Method Indwelling Catheter Indwelling Catheter # Bowel Movements 1 - Labs CBC & Chem 7: 08/19/18 06:29 08/22/18 07:59 Labs: Abnormal Lab Results - Last 24 Hours (Table) 08/22/18 Range/Units 07:59 Sodium 131 L (137-145) mmol/L Chloride 93 L (98-107) mmol/L BUN 21 H (9-20) mg/dL Microbiology - Last 24 Hours (Table) 08/20/18 08:48 Urine Culture - Final Urine,Catheterized Escherichia coli
[2018-08-23 08:07] LABS: Calcium 9.2 mg/dL (8.4-10.2); Potassium 4.4 mmol/L (3.5-5.1)
[2018-08-23] MEDS: FINASTERIDE 5 MG TAB PO SCH (08:22)
[2018-08-23] MEDS: CYANOCOBALAMIN 500 MCG TAB PO SCH (08:23)
[2018-08-23] MEDS: DIVALPROEX ER 500 MG TAB.ER.24H PO SCH ×2 (08:23→22:08)
[2018-08-23] MEDS: CHOLECALCIFEROL 1,000 UNIT TAB PO SCH (08:23)
[2018-08-23] MEDS: LISINOPRIL 2.5 MG TAB PO SCH ×2 (08:23→22:07)
[2018-08-23] MEDS: ASPIRIN 81 MG PO SCH (08:23)
[2018-08-23] MEDS: TAMSULOSIN 0.4 MG CAP.ER.24H PO SCH ×2 (08:23→22:07)
[2018-08-23] MEDS: APIXABAN 5 MG TAB PO SCH ×2 (08:23→22:07)
[2018-08-23] MEDS: METOPROLOL TARTRATE 50 MG TAB PO SCH ×2 (08:23→22:08)
[2018-08-23] MEDS: SPIRONOLACTONE 25 MG TAB PO SCH (08:23)
[2018-08-23] MEDS ORDERED: FUROSEMIDE 40 MG TAB PO SCH (09:00)
[2018-08-23] MEDS: ACETAMINOPHEN TAB 325 MG TAB PO PRN ×2 (10:53→16:02)
[2018-08-23] MEDS: ERTAPENEM 1 GM in SODIUM CHLORIDE 0.9% 50 ML IVPB SCH (10:56)
--- NOTE | 2018-08-23 12:09 | P.PN ---
Subjective Progress Note Date: 08/23/18 This 83-year-old gentleman is admitted with urinary retention. Patient had a Corrales catheter and has been diuresing well. There doesn't appear to be in acute distress. Able to lie flat. No complaints of chest pain and wants to go home. His sodium levels have come up to 131. Lungs appeared to be clear. I'm going Back the dose of the Lasix and actually switched to by mouth Lasix. Possible discharge within next 24 hours. 08/23/2089: Patient is feeling better. Denies any chest pain or shortness of breath. No fever or chills. His sodium levels are improving. Patient wants to be discharged. Arrangements are being made for possible PICC line and antibiotic therapy as an outpatient. From Cardec standpoint patient is stable. Follow-up in the office in one week after discharge Objective - Vital Signs Vital signs: Vital Signs Temp 98.4 F 08/23/18 07:00 Pulse 91 08/23/18 07:00 Resp 15 08/23/18 07:00 BP 111/72 08/23/18 07:00 Pulse Ox 95 08/23/18 07:00 Intake & Output 08/22/18 08/23/18 08/23/18 18:59 06:59 18:59 Intake Total 1160 50 200 Output Total 1550 2400 Balance -390 -2350 200 Intake: Oral 1160 50 200 Output: Urine 1550 2400 Uretheral (Corrales) 950 Other: Voiding Method Indwelling Catheter Indwelling Catheter Indwelling Catheter # Bowel Movements 1 1 - Exam GENERAL EXAM: Patient is alert and oriented and doesn't appear to be in any acute distress HEENT: Normocephalic. Normal reaction of pupils, equal size, normal range of extraocular motion. No erythema or exudates in the throat. NECK: No masses, no nuchal rigidity. CHEST: No chest wall deformity. LUNGS: Equal air entry with no crackles or wheeze. HEART: S1 and S2 normal with no audible mumurs or gallops. Regular rhythm, femorals equal on both sides.. ABDOMEN: No hepatosplenomegaly, normal bowel sounds, no guarding or rigidity. SKIN: No rashes CENTRAL NERVOUS SYSTEM: No focal deficits. EXTREMITIES: Resolving edema - Labs CBC & Chem 7: 08/19/18 06:29 08/23/18 07:21 Labs: Abnormal Lab Results - Last 24 Hours (Table) 08/23/18 Range/Units 07:21 Sodium 133 L (137-145) mmol/L Chloride 94 L (98-107) mmol/L Carbon Dioxide 34 H (22-30) mmol/L BUN 23 H (9-20) mg/dL Microbiology - Last 24 Hours (Table) 08/20/18 08:48 Urine Culture - Final Urine,Catheterized Escherichia coli Assessment and Plan (1) Atrial fibrillation, chronic Current Visit: Yes Status: Acute Code(s): I48.2 - CHRONIC ATRIAL FIBR ILLATION SNOMED Code(s): 109059602 (2) Urinary retention Current Visit: Yes Status: Acute Code(s): R33.9 - RETENTION OF URINE, UNSPECIFIED SNOMED Code(s): 817010907 (3) Chronic systolic heart failure Current Visit: Yes Status: Acute Code(s): I50.22 - CHRONIC SYSTOLIC (CONGESTIVE) HEART FAILURE SNOMED Code(s): 691381386 (4) Hyponatremia Current Visit: Yes Status: Acute Code(s): E87.1 - HYPO-OSMOLALITY AND HYPONATREMIA SNOMED Code(s): 46726288 Plan: Patient is critically stable. Cardiac-swenson patient be able to go home. Follow- up in the office in about one to 2 weeks
--- NOTE | 2018-08-23 16:09 | P.PN ---
Subjective Progress Note Date: 08/23/18 Principal diagnosis: This is an 83 year old male that was admitted for urinary retention and lower abdominal pain. Family is at the bedside asking when he will be discharged as he will receive care from [facility] and them as they are home 06/09. Patient is in no acute distress at this time and the Corrales is in place and draining. Patient denies any chest pain, abdominal pain, shortness of breath, or fever at this time. Patient is improving since Corrales insertion. Urology and cardiology consulted as patient had come in with chest pain. The patient is being closely monitored. Today the patient appears in no acute distress. Patient is sitting up in bed on room air and vital signs are stable. Corrales is still in place and draining with clear yellow urine. Patient is afebrile, denies any chest pain, palpitations, or shortness of breath. Dr. Galicia was consulted today for ESBL in the urine and E. coli. IV antibiotics switched from ceftriaxone to Invanz and patient is to go home with IV antibiotic therapy and to follow-up with infectious disease in one week. As for cardiology patient has been cleared for discharge to home with a follow-up in 1-2 weeks. Upon attempting to discharge the patient the oxygen saturation was dropping into the 80s and unable to maintain above 90 on room air. Discussed with the patient about receiving 2 additional doses this evening and tomorrow morning of IV Lasix and will reassess at that point for discharge home. Patient was not happy as he is not going home tonight but has agreed to stay with family at the bedside. Patient is not normally oxygen dependent at home. Patient will follow-up with urology in the outpatient setting and patient is able to go home with Corrales in place until antibiotic therapy is completed. Patient denies any shortness of breath, chest pain, or palpitations at this time. Patient is afebrile Assessment: Hyponatremia secondary to hypervolemic state Urinary retention, resolved Corrales catheter placement Chest pain, need to rule out cardiac cause, resolved History of A. fib History of CVA History of heart failure History of COPD History of dementia History of GERD History of hyperlipidemia History of hypertension History of coronary artery disease status post CABG History of seizure disorder History of arthritis Recommendations and discussion: Will recommend continuing current medications, management, and symptomatic management. We'll continue to monitor the patient closely and recheck in the a.m. we'll continue to monitor vital signs closely and treat accordingly. IV La six 40 mg twice a day ordered. Cardiology and urology have cleared for discharge. Prognosis is guarded at this time and further recommendations to follow. Will reassess for possible discharge in 24 hours. Objective - Vital Signs Vital signs: Vital Signs Temp 97.5 F L 08/23/18 14:32 Pulse 80 08/23/18 14:32 Resp 16 08/23/18 14:32 BP 91/59 08/23/18 14:32 Pulse Ox 96 08/23/18 14:32 Intake & Output 08/22/18 08/23/18 08/23/18 18:59 06:59 18:59 Intake Total 1160 50 440 Output Total 1550 2400 Balance -390 -2350 440 Weight 85 kg Intake: Oral 1160 50 440 Output: Urine 1550 2400 Uretheral (Corrales) 950 Other: Voiding Method Indwelling Catheter Indwelling Catheter Indwelling Catheter # Bowel Movements 1 1 - Labs CBC & Chem 7: 08/19/18 06:29 08/23/18 07:21 Labs: Abnormal Lab Results - Last 24 Hours (Table) 08/23/18 Range/Units 07:21 Sodium 133 L (137-145) mmol/L Chloride 94 L (98-107) mmol/L Carbon Dioxide 34 H (22-30) mmol/L BUN 23 H (9-20) mg/dL Microbiology - Last 24 Hours (Table) 08/20/18 08:48 Urine Culture - Final Urine,Catheterized Escherichia coli
--- NOTE | 2018-08-23 21:57 | P.CONS ---
History of Present Illness - Reason for Consult Consult date: 08/23/18 ESBL E. coli urinary tract infection Requesting physician: Kala Lamb - Chief Complaint Difficulty urination and discomfort x 1 day - History of Present Illness Patient is a 73-year-old male with a past medical history significant for benign prostatic hypertrophy presenting to the ER at [facility] on 08/18/2018 with chief complaints of difficulty urination the patient's symptom has been going on for a day before he presented to hospital with inability to urinate and at times has only dribbling patient also have suprapubic discomfort more for developing pain 3-4 out of 10 and no radiation denies having any flank pain no nausea no vomiting did have some chills but denies high-grade fever from January the patient presented to hospital he was evaluated by the physician. Did have positive UA subsequently has been evaluated by urology recommending a Corrales catheter placement patient was treated with IV Rocephin and urine culture has been finalized today with ESBL E. 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 Last Myocardial Infarction Date:: 2014 History of Any Multi-Drug Resistant Organisms: ESBL Year Discovered:: 08/20/18 MDRO Source:: ESBL URINE Past Surgical History: Back Surgery, Coronary Bypass/CABG, Heart Catheterization With Stent Additional Past Surgical History / Comment(s): 2009 CABG 2 vessel, PCIs/ total of 10 stents per pt/family, low back fusion/rodsx2, bilateral cataract removals/lens implants, EGD, colonoscopy. Past Anesthesia/Blood Transfusion Reactions: No Reported Reaction Date of Last Stent Placement:: 2009 Past Psychological History: Anxiety Smoking Status: Former smoker Past Alcohol Use History: None Reported Past Drug Use History: None Reported - Past Family History Mother Family Medical History: Vascular Disorder Additional Family Medical History / Comment(s): Mother from an esophageal aneurysm rupture at the age of 83 yrs. Father Family Medical History: Cancer Additional Family Medical History / Comment(s): Father of lung cancer. He was an exsmoker. Brother(s) Additional Family Medical History / Comment(s): pt reports his brother to had a cardica hx Medications and Allergies Home Medications Medication Instructions Recorded Confirmed Type Metoprolol Tartrate [Lopressor] 25 mg PO BID 01/14/15 08/18/18 History Temazepam [Restoril] 30 mg PO HS PRN 09/23/16 08/18/18 History Aspirin EC [Ecotrin Low Dose] 81 mg PO DAILY #30 tablet. 04/22/17 08/18/18 Rx ALPRAZolam [Xanax] 2 mg PO HS PRN 08/18/18 08/18/18 History Apixaban [Eliquis] 5 mg PO BID 08/18/18 08/18/18 History Atorvastatin Calcium [Lipitor] 10 mg PO HS 08/18/18 08/18/18 History Cholecalciferol [Vitamin D3 (25 1,000 unit PO DAILY 08/18/18 08/18/18 History Mcg = 1000 Iu)] Cyanocobalamin (Vitamin B-12) 2,500 mcg PO DAILY 08/18/18 08/18/18 History [Vitamin B-12] Divalproex ER [Depakote ER] 500 mg PO BID 08/18/18 08/18/18 History Divalproex Sodium [Depakote ER] 250 mg PO HS 08/18/18 08/18/18 History Docusate [Colace] 100 mg PO DAILY PRN 08/18/18 08/18/18 History Famotidine [Pepcid] 20 mg PO DAILY PRN 08/18/18 08/18/18 History Finasteride [Proscar] 5 mg PO DAILY 08/18/18 08/18/18 History Lisinopril [Zestril] 5 mg PO DAILY 08/18/18 08/18/18 History Nitroglycerin Sl Tabs [Nitrostat] 0.4 mg SUBLINGUAL Q5M PRN 08/18/18 08/18/18 History Polyethylene Glycol 3350 [Miralax] 17 gm PO DAILY PRN 08/18/18 08/18/18 History Tamsulosin HCl [Flomax] 0.4 mg PO BID 08/18/18 08/18/18 History Butalbital/Aspirin/Caffeine 1 - 2 tab PO Q6H PRN 08/19/18 08/19/18 History [Egwmag-Kkulqoq-Ppvxahlv 50-325-40 mg] Allergies Allergy/AdvReac Type Severity Reaction Status Date / Time levofloxacin [From Levaquin] Allergy Rash/Hives Verified 08/18/18 19:57 amphetamine AdvReac SEIZURE Verified 08/18/18 19:57 bupropion [From Wellbutrin] AdvReac SEIZURE Verified 08/18/18 19:57 ciprofloxacin [From Cipro] AdvReac SEIZURE Verified 08/18/18 19:57 lorazepam [From Ativan] AdvReac Confusion Verified 08/20/18 12:38 meperidine [From Demerol] AdvReac SEIZURE Verified 08/18/18 19:57 methylphenidate AdvReac SEIZURE Verified 08/18/18 19:57 [From Ritalin] tramadol AdvReac SEIZURE Verified 08/18/18 19:57 Physical Exam Vitals: Vital Signs Temp Pulse Resp BP BP Pulse Ox 08/23/18 07:00 98.4 F 91 15 111/72 95 08/23/18 03:33 16 08/23/18 01:00 98.4 F 70 14 113/65 92 L 08/22/18 23:29 16 08/22/18 20:41 76 127/74 08/22/18 19:20 15 08/22/18 19:01 97.6 F 86 15 120/77 97 08/22/18 14:44 97.7 F 74 16 107/73 100 08/22/18 10:40 98.0 F 69 18 98/61 90 L Intake and Output 08/22/18 08/23/18 08/23/18 22:59 06:59 14:59 Intake Total 290 200 Output Total 600 2400 Balance -310 -2400 200 Intake: Oral 290 200 Output: Urine 600 2400 Other: Voiding Method Indwelling Catheter # Bowel Movements 1 1 GENERAL DESCRIPTION: Elderly male lying in bed, no distress. No tachypnea or accessory muscle of respiration use. HEENT: Shows Pallor , no scleral icterus. Oral mucous membrane is dry. No pharyngeal erythema or thrush NECK: Trachea central, no thyromegaly. LUNGS: Unlabored breathing. Clear to auscultation anteriorly. No wheeze or crackle. HEART: S1, S2, regular rate and rhythm. No loud murmur ABDOMEN: Soft, no tenderness , guarding or rigidity, no organomegaly EXTREMITIES: No edema of feet. SKIN: No rash, no masses palpable. NEUROLOGICAL: The patient is awake, alert, oriented x3, mood and affect normal Results CBC & Chem 7: 08/19/18 06:29 08/23/18 07:21 Labs: Abnormal Lab Results - Last 24 Hours (Table) 08/23/18 Range/Units 07:21 Sodium 133 L (137-145) mmol/L Chloride 94 L (98-107) mmol/L Carbon Dioxide 34 H (22-30) mmol/L BUN 23 H (9-20) mg/dL Microbiology - Last 24 Hours (Table) 08/20/18 08:48 Urine Culture - Final Urine,Catheterized Escherichia coli Assessment and Plan Assessment: 1-patient presented to hospital with a urinary outflow obstruction suprapubic d iscomfort with a significantly positive UA likely a complicated urinary tract infection and treated has been finalized with the ESBL E. coli which usually do not is on very well to the oral antibiotic that has been listed sensitive with this pathogen 2-patient with Levaquin ALLERGY limiting the number of antibiotic safe to use Plan: 1-discontinue the Rocephin 2-start the patient on Invanz 1 g daily 3-we will obtain midline of for outpatient IV antibiotic therapy for at least 10 days 4-prescription has been provided to the major case detective and midline has been ordered once the range he should be able to go home from ID standpoint we will follow up on clinical condition and cultures to further adjust medication if needed Thank you for this consultation will follow this patient along with you Time with Patient: Greater than 30
[2018-08-23] MEDS: FUROSEMIDE 10 MG/ML 4 ML VIAL IV SCH (22:06)
[2018-08-23] MEDS: ATORVASTATIN 10 MG TAB PO SCH (22:06)
[2018-08-23] MEDS: DIVALPROEX ER 250 MG TAB.ER.24H PO SCH (22:08)
[2018-08-24 07:42] VITALS: RESP 16
[2018-08-24 08:27] LABS: Calcium 9.4 mg/dL (8.4-10.2); Potassium 4.1 mmol/L (3.5-5.1)
[2018-08-24] MEDS: SPIRONOLACTONE 25 MG TAB PO SCH (09:47)
[2018-08-24] MEDS: CYANOCOBALAMIN 500 MCG TAB PO SCH (09:47)
[2018-08-24] MEDS: METOPROLOL TARTRATE 50 MG TAB PO SCH (09:47)
[2018-08-24] MEDS: TAMSULOSIN 0.4 MG CAP.ER.24H PO SCH (09:48)
[2018-08-24] MEDS: ASPIRIN 81 MG PO SCH (09:48)
[2018-08-24] MEDS: DIVALPROEX ER 500 MG TAB.ER.24H PO SCH (09:48)
[2018-08-24] MEDS: ERTAPENEM 1 GM in SODIUM CHLORIDE 0.9% 50 ML IVPB SCH (09:48)
[2018-08-24] MEDS: FUROSEMIDE 10 MG/ML 4 ML VIAL IV SCH (09:48)
[2018-08-24] MEDS: APIXABAN 5 MG TAB PO SCH (09:48)
[2018-08-24] MEDS: ACETAMINOPHEN TAB 325 MG TAB PO PRN (09:48)
[2018-08-24] MEDS: CHOLECALCIFEROL 1,000 UNIT TAB PO SCH (09:48)
[2018-08-24] MEDS: FINASTERIDE 5 MG TAB PO SCH (09:48)
[2018-08-24] MEDS: LISINOPRIL 2.5 MG TAB PO SCH (09:48)
--- NOTE | 2018-08-24 11:44 | P.PN ---
Subjective Progress Note Date: 08/24/18 This 83-year-old gentleman is admitted with urinary retention. Patient had a Corrales catheter and has been diuresing well. There doesn't appear to be in acute distress. Able to lie flat. No complaints of chest pain and wants to go home. His sodium levels have come up to 131. Lungs appeared to be clear. I'm going Back the dose of the Lasix and actually switched to by mouth Lasix. Possible discharge within next 24 hours. 08/23/2018: Patient is feeling better. Denies any chest pain or shortness of breath. No fever or chills. His sodium levels are improving. Patient wants to be discharged. Arrangements are being made for possible PICC line and antibiotic therapy as an outpatient. From Cardec standpoint patient is stable. Follow-up in the office in one week after discharge. 08/24/2018: This patient remains stable. Denies any chest pain or shortness of breath. He had a PICC line inserted yesterday. Urine output is good. Lab work showed his sodium is 136. Overall patient seemed clinically doing well. Patient wants to go home. Most probably patient will be discharged home today Objective - Vital Signs Vital signs: Vital Signs Temp 98.6 F 08/24/18 07:00 Pulse 90 08/24/18 07:00 Resp 16 08/24/18 07:00 BP 119/74 08/24/18 07:00 Pulse Ox 99 08/24/18 07:00 Intake & Output 08/23/18 08/24/18 08/24/18 18:59 06:59 18:59 Intake Total 920 250 Output Total 750 1125 Balance 170 -1125 250 Weight 85 kg Intake: Oral 920 250 Output: Urine 750 1125 Other: Voiding Method Indwelling Catheter Indwelling Catheter # Bowel Movements 1 1 1 - Exam GENERAL EXAM: Patient is alert and oriented and doesn't appear to be in any acute distress HEENT: Normocephalic. Normal reaction of pupils, equal size, normal range of extraocular motion. No erythema or exudates in the throat. NECK: No masses, no nuchal rigidity. CHEST: No chest wall deformity. LUNGS: Equal air entry with no crackles or wheeze. HEART: S1 and S2 normal with no audible mumurs or gallops. Regular rhythm, femorals equal on both sides.. ABDOMEN: No hepatosplenomegaly, normal bowel sounds, no guarding or rigidity. SKIN: No rashes CENTRAL NERVOUS SYSTEM: No focal deficits. EXTREMITIES: Resolving edema - Labs CBC & Chem 7: 08/19/18 06:29 08/24/18 07:03 Labs: Abnormal Lab Results - Last 24 Hours (Table) 08/24/18 Range/Units 07:03 Sodium 136 L (137-145) mmol/L Chloride 94 L (98-107) mmol/L Carbon Dioxide 36 H (22-30) mmol/L BUN 24 H (9-20) mg/dL Assessment and Plan (1) Atrial fibrillation, chronic Current Visit: Yes Status: Acute Code(s): I48.2 - CHRONIC ATRIAL FIBRILLATION SNOMED Code(s): 798111116 (2) Urinary retention Current Visit: Yes Status: Acute Code(s): R33.9 - RETENTION OF URINE, UNSPECIFIED SNOMED Code(s): 163896842 (3) Chronic systolic heart failure Current Visit: Yes Status: Acute Code(s): I50.22 - CHRONIC SYSTOLIC (CONGESTIVE) HEART FAILURE SNOMED Code(s): 819284750 (4) Hyponatremia Current Visit: Yes Status: Acute Code(s): E87.1 - HYPO-OSMOLALITY AND HYPONATREMIA SNOMED Code(s): 78104097 Plan: Patient is clinically stable. No complaints of any chest pain or shortness of breath. Patient could be discharged home. Follow-up in the office in about one to 2 weeks
[2018-08-24 14:10] VITALS: BP 93/57; PULSE 84; TEMP 98.5
--- NOTE | 2018-08-24 15:52 | PN ---
PROGRESS NOTE DATE OF SERVICE: 08/24/2018 REASON FOR FOLLOWUP: ESBL E coli urinary tract infection, complicated. INTERVAL HISTORY: The patient is currently afebrile. The patient has been breathing comfortably. Denies having any chest pain or any cough. No abdominal pain or any diarrhea. PHYSICAL EXAMINATION: Blood pressure is 93/57 with a pulse of 84, temperature of 98.5. He is 96% on room air. General description is an elderly male up in the chair in no distress. RESPIRATORY SYSTEM: Unlabored breathing. Clear to auscultation anteriorly. HEART: S1, S2. Regular rate and rhythm. ABDOMEN: Soft. No tenderness. LAB: BUN of 24, creatinine 1.05. DIAGNOSTIC IMPRESSION AND PLAN: Patient with extended-spectrum beta-lactamase Escherichia coli urinary tract infection. The patient is currently on IV Invanz. He did get a midline and is currently waiting for outpatient IV antibiotic regimen before discharge and close outpatient followup. Family at the bedside. Their questions were answered. MMODL / IJN: [id number] /
--- NOTE | 2018-08-24 16:06 | P.DS ---
Providers Date of admission: 08/20/18 14:14 Expected date of discharge: 08/24/18 Attending physician: Abdullahi Levin MD Consults: 08/18/18 21:18 Consult Physician Stat Consulting Provider: Shiva Dill Consult Reason/Comments: chest pain Do you want consulting provider notified?: Yes 08/18/18 21:20 Consult Physician Routine Consulting Provider: Tesfaye Simpson Consult Reason/Comments: urinary retention Do you want consulting provider notified?: Yes, Notify in am 08/23/18 10:07 Consult Physician Stat Consulting Provider: Dayanna Galicia Consult Reason/Comments: ESBL in urine/ecoli/ currently on ceftriaxone Do you want consulting provider notified?: Yes [facility] Course: Final diagnosis Urinary retention, resolved with Chanel catheter placement Chest pain History of A. fib History of CVA History of heart failure History of COPD Hyponatremia secondary to hypervolemic state History of dementia History of GERD History of hyperlipidemia History of hypertension History of coronary artery disease status post CABG History of seizure disorder history of arthritis Discharge disposition The patient is being discharged in a stable condition with guarded prognosis to home in [facility] will be following closely for IV antibiotic therapy. Time spent is 35 minutes. IV antibiotics and a midline has been arranged per infectious disease recommendations. Daughters live with patient and will also be caring for him. Daughter is understanding of treatment plan and agrees with the plan. History of present illness This is an 83-year-old male who was recently admitted for urinary retention that has resolved since Chanel catheter placement. Patient will be going home with Chanel catheter until antibiotic treatment is complete 1 week and then will follow-up with urology in 1 week. [facility] visiting nurses was set up with case management and is visiting him today. On admission patient's urine culture was positive for ESBL and E. coli. Invanz was recommended by infectious disease and will be continuing on this medication for 1 week. Patient denies any chest pain, shortness of breath, palpitations, and is currently afebrile. Patient is eager to go home. Patient is currently stable with much improvement. Patient will be sent home on oral Lasix 40 mg twice a day. Patient is maintaining oxygen saturation in the low 90s on room air. Patient does not require home oxygen at this time. Patient is being discharged in a stable condition with guarded prognosis and will follow-up with urology Dr. Simpson and infectious disease Dr. Galicia. On exam vital signs are stable. Cardio S1 and S2 are normal. Respiratory system is clear to auscultation. It is soft and nontender. Nervous system is showing no new focal deficits. Patient has a slow and steady gait. Bilateral lower leg edema has resolved. Please refer to the medication reconciliation sheet for list of medications. Patient Condition at Discharge: Stable Plan - Discharge Summary Discharge Rx Participant: No New Discharge Prescriptions: New Ertapenem [INVanz] 1 gm IVPB DAILY vial Furosemide [Lasix] 40 mg PO BID 30 Days #60 tablet Continue Metoprolol Tartrate [Lopressor] 25 mg PO BID Temazepam [Restoril] 30 mg PO HS PRN PRN Reason: Insomnia Aspirin EC [Ecotrin Low Dose] 81 mg PO DAILY #30 tablet. Lisinopril [Zestril] 5 mg PO DAILY Finasteride [Proscar] 5 mg PO DAILY Docusate [Colace] 100 mg PO DAILY PRN PRN Reason: Constipation Polyethylene Glycol 3350 [Miralax] 17 gm PO DAILY PRN PRN Reason: Constipation Nitroglycerin Sl Tabs [Nitrostat] 0.4 mg SUBLINGUAL Q5M PRN PRN Reason: Chest Pain Cyanocobalamin (Vitamin B-12) [Vitamin B-12] 2,500 mcg PO DAILY Cholecalciferol [Vitamin D3 (25 Mcg = 1000 Iu)] 1,000 unit PO DAILY ALPRAZolam [Xanax] 2 mg PO HS PRN PRN Reason: Anxiety Tamsulosin HCl [Flomax] 0.4 mg PO BID Famotidine [Pepcid] 20 mg PO DAILY PRN PRN Reason: Heartburn Atorvastatin Calcium [Lipitor] 10 mg PO HS Apixaban [Eliquis] 5 mg PO BID Divalproex ER [Depakote ER] 500 mg PO BID Divalproex Sodium [Depakote ER] 250 mg PO HS Butalbital/Aspirin/Caffeine [Mrtfbc-Iypkiji-Wbfcfnof 50-325-40 mg] 1 - 2 tab PO Q6H PRN PRN Reason: Migraine Headache Discharge Medication List Metoprolol Tartrate [Lopressor] 25 mg PO BID 01/14/15 [History] Temazepam [Restoril] 30 mg PO HS PRN 09/23/16 [History] Aspirin EC [Ecotrin Low Dose] 81 mg PO DAILY #30 tablet. 04/22/17 [Rx] ALPRAZolam [Xanax] 2 mg PO HS PRN 08/18/18 [History] Apixaban [Eliquis] 5 mg PO BID 08/18/18 [History] Atorvastatin Calcium [Lipitor] 10 mg PO HS 08/18/18 [History] Cholecalciferol [Vitamin D3 (25 Mcg = 1000 Iu)] 1,000 unit PO DAILY 08/18/18 [History] Cyanocobalamin (Vitamin B-12) [Vitamin B-12] 2,500 mcg PO DAILY 08/18/18 [History] Divalproex ER [Depakote ER] 500 mg PO BID 08/18/18 [History] Divalproex Sodium [Depakote ER] 250 mg PO HS 08/18/18 [History] Docusate [Colace] 100 mg PO DAILY PRN 08/18/18 [History] Famotidine [Pepcid] 20 mg PO DAILY PRN 08/18/18 [History] Finasteride [Proscar] 5 mg PO DAILY 08/18/18 [History] Lisinopril [Zestril] 5 mg PO DAILY 08/18/18 [History] Nitroglycerin Sl Tabs [Nitrostat] 0.4 mg SUBLINGUAL Q5M PRN 08/18/18 [History] Polyethylene Glycol 3350 [Miralax] 17 gm PO DAILY PRN 08/18/18 [History] Tamsulosin HCl [Flomax] 0.4 mg PO BID 08/18/18 [History] Butalbital/Aspirin/Caffeine [Higino-Lgmcrtd-Nshitqmo 50-325-40 mg] 1 - 2 tab PO Q6H PRN 08/19/18 [History] Ertapenem [INVanz] 1 gm IVPB DAILY vial 08/24/18 [Rx] Furosemide [Lasix] 40 mg PO BID 30 Days #60 tablet 08/24/18 [Rx] Follow up Appointment(s)/Referral(s): [facility], [NON-STAFF] - Shiva Dill MD [STAFF PHYSICIAN] - 09/04/18 1:45 pm Tyson Hamilton DO [Primary Care Provider] - 09/01/18 10:20 am Dayanna Galicia MD [STAFF PHYSICIAN] - 1 Week Tesfaye Simpson MD [STAFF PHYSICIAN] - 08/31/18 7:40 am Activity/Diet/Wound Care/Special Instructions: Activity limited until follow-up, may advance as tolerated continue with IV infusions of Invanz, homecare nurse to follow-up within 24 hours continue current diet perform chanel care as guided by the visiting RN follow up with urology in one week after antibiotic therapy for removal of catheter. Discharge Disposition: HOME WITH HOME HEALTH SERVICES
== END 2018-08-24 15:03 | disposition home health service (06) | DRG 690 ==
LOC: EC 17:16 → 3SCARD 21:30 → 4SSUR 08-19 20:30 → OBSVTOIN 08-20 14:14
PROVIDERS: ADMIT Internal Medicine; ATTEND Internal Medicine
PROC: 05HC33Z Insertion of Infusion Device into Left Basilic Vein, Percutaneous Approach (ICD-10-PCS; principal; 2018-08-23 15:45)
DX: N39.0 Urinary tract infection, site not specified (principal); E87.1 Hypo-osmolality and hyponatremia; I50.22 Chronic systolic (congestive) heart failure; N13.8 Other obstructive and reflux uropathy; I11.0 Hypertensive heart disease with heart failure; I48.2 Chronic atrial fibrillation; J44.9 Chronic obstructive pulmonary disease, unspecified; I71.2 Thoracic aortic aneurysm, without rupture; I25.5 Ischemic cardiomyopathy; F03.90 Unspecified dementia, unspecified severity, without behavioral disturbance, psychotic disturbance, mood disturbance, and anxiety; G40.909 Epilepsy, unspecified, not intractable, without status epilepticus; R07.9 Chest pain, unspecified; N40.1 Benign prostatic hyperplasia with lower urinary tract symptoms; B96.20 Unspecified Escherichia coli [E. coli] as the cause of diseases classified elsewhere; E78.5 Hyperlipidemia, unspecified; F41.9 Anxiety disorder, unspecified; I25.10 Atherosclerotic heart disease of native coronary artery without angina pectoris; I25.2 Old myocardial infarction; K21.9 Gastro-esophageal reflux disease without esophagitis; G89.29 Other chronic pain; L71.9 Rosacea, unspecified; R07.89 Other chest pain; R45.1 Restlessness and agitation; M19.90 Unspecified osteoarthritis, unspecified site; M47.9 Spondylosis, unspecified; K57.90 Diverticulosis of intestine, part unspecified, without perforation or abscess without bleeding; Z16.12 Extended spectrum beta lactamase (ESBL) resistance; Z79.01 Long term (current) use of anticoagulants; Z79.82 Long term (current) use of aspirin; Z79.899 Other long term (current) drug therapy; Z86.73 Personal history of transient ischemic attack (TIA), and cerebral infarction without residual deficits; Z87.891 Personal history of nicotine dependence; Z95.1 Presence of aortocoronary bypass graft; Z98.1 Arthrodesis status; Z95.5 Presence of coronary angioplasty implant and graft; Z88.1 Allergy status to other antibiotic agents; Z88.5 Allergy status to narcotic agent; Z88.8 Allergy status to other drugs, medicaments and biological substances; Z98.42 Cataract extraction status, left eye; Z98.41 Cataract extraction status, right eye; Z96.1 Presence of intraocular lens; Z87.01 Personal history of pneumonia (recurrent); Z80.1 Family history of malignant neoplasm of trachea, bronchus and lung; Z82.49 Family history of ischemic heart disease and other diseases of the circulatory system
CPT/HCPCS: 36410; 36415; 51702; 51798; 71045; 71046; 76937; 80048; 80053; 80061; 81001; 82570; 83735; 83880; 83930; 83935; 84300; 84439; 84443; 84484; 85025; 85027; 85610; 85730; 87077; 87086; 87186; 93005; 94760; 96374; 96375; 96376; 99285

== ENCOUNTER → 2018-09-07 | Outpatient (CLI) | payer MEDICARE ==
--- NOTE | 2018-09-07 15:42 | XR ---
Chest x-ray with left RIBS HISTORY: Left rib pain for 2 weeks Frontal view of the chest and 5 views of the left ribs submitted and correlated prior chest x-ray 08/14 Patient is post median sternotomy. Postop changes are noted to the lumbar spine. There is no evident pneumothorax or pleural effusion. Patient's right upper lobe pneumonia has resolved. The aorta is den se and tortuous. Bone mineralization is reduced which may limit sensitivity. No evident displaced rib fracture. Coronary artery calcifications. Suspect chronic pleural reaction at the left costophrenic angle. IMPRESSION: Bone scan could be performed for increased sensitivity if occult abnormality is suspected clinically. Postop changes and additional findings above.
== END | disposition home or self-care (01) ==
LOC: RADXRYALE 09:43
PROVIDERS: ATTEND Family Medicine
DX: I25.10 Atherosclerotic heart disease of native coronary artery without angina pectoris (principal); Z98.890 Other specified postprocedural states

== ENCOUNTER 2018-09-13 16:57 | Emergency (ER) | payer MEDICARE ==
[2018-09-13 17:44] LABS: Appearance,Urine Clear (Clear); Bilirubin,Urine Negative (Negative); Blood,Urine Negative (Negative); Color,Urine Yellow; Glucose,Urine (UA) Negative (Negative); Hyaline Casts,Urine 24 /lpf (0-2); Ketones,Urine Negative (Negative); Leukocyte Esterase,Urine Large (Negative); Mucus,Urine Rare /hpf; Nitrite,Urine Negative (Negative); PH, Urine 6.5 (5.0-8.0); Protein,Urine Negative (Negative); RBC,Urine 6 /hpf (0-5); Specific Gravity,Urine 1.014 (1.001-1.035); Squamous Epithelial Cell,Urine 2 /hpf (0-4); Urobilinogen,Urine <2.0 mg/dL (<2.0)
[2018-09-13 17:53] LABS: ALT 14 U/L (21-72); AST 30 U/L (17-59); African American GFR (CKD) 68 (>60 ml/min/1.73 sqM); Albumin 3.2 g/dL (3.5-5.0); Alkaline Phosphatase 53 U/L (38-126); Anion Gap 7 mmol/L; Blood Urea Nitrogen 23 mg/dL (9-20); Calcium 8.6 mg/dL (8.4-10.2); Carbon Dioxide 29 mmol/L (22-30); Chloride 97 mmol/L (98-107); Glucose 91 mg/dL (74-99); Potassium 4.3 mmol/L (3.5-5.1); Sodium 133 mmol/L (137-145); Total Bilirubin 0.4 mg/dL (0.2-1.3); Total Protein 6.1 g/dL (6.3-8.2)
[2018-09-13 17:58] LABS: Anisocytosis Slight; Basophils % (A) 1 %; Eosinophils # (A) 0.1 k/uL (0-0.7); Eosinophils % (A) 2 %; HCT 31.2 % (39.0-53.0); HGB 10.4 gm/dL (13.0-17.5); Lymphocytes # (A) 0.5 k/uL (1.0-4.8); Lymphocytes % (A) 20 %; MCH 32.7 pg (25.0-35.0); MCHC 33.4 g/dL (31.0-37.0); MCV 97.9 fL (80.0-100.0); Macrocytosis Slight; Mean Platelet Volume 7.4; Monocytes # (A) 0.3 k/uL (0-1.0); Monocytes % (A) 12 %; Neutrophils # (A) 1.7 k/uL (1.3-7.7); Neutrophils % (A) 62 %; Platelet Count 206 k/uL (150-450); RBC 3.18 m/uL (4.30-5.90); RDW 16.2 % (11.5-15.5); WBC 2.7 k/uL (3.8-10.6)
--- NOTE | 2018-09-13 18:09 | ED ---
Seizure HPI - General Chief Complaint: Seizure Stated Complaint: Seizure Time Seen by Provider: 09/13/18 17:10 Source: patient, EMS Mode of arrival: EMS Limitations: no limitations - History of Present Illness Initial Comments: The patient is an 83-year-old male with past medical history of CVA and seizure disorder who presents to the emergency room and after he had a seizure at home. He does live with this daughter and it was unwitnessed while the daughter was in another room. Daughter came into the room to find him seizing in his recliner. The seizure lasted for approximately 5 minutes before spontaneously resolved. It involved tonic-clonic shaking. The patient did not wet himself. He was then postictal for a period of time. The daughter did call EMS. He then acutely became arousable. The patient did bite his tongue. He states that previous to the seizure he felt well. He denies any headaches or visual changes. Denies any chest pain or shortness of breath. He did have an episode of emesis during the seizure and he does present with vomitus on his shirt. The daughter denies any respiratory difficulty. He does arrive on 2 L nasal cannula. He does not wear oxygen at home. The patient has no residual weakness from previous CVA. He denies any unilateral numbness or weakness at this time. Denies photophobia, neck pain or stiffness. The patient did not injure himself during the seizure. Daughter reports that the patient's Depakote level has been low and she does believe it is due to antibiotic use. The patient is currently on Invanz for a urinary tract infection through a PICC line. PICC line was just removed yesterday as the patient did complete his course. The patient had his first seizure in 2013. He then had another seizure in July, on July 16 for which he required intubation. He was then transferred to [place] for further care. Daughter states that he was intubated for 3 days. At that time is when he was placed on Depakote. He has been taking it as directed. 2 weeks ago the patient had a seizure and was taken to [facility]. At that time the patient's Depakote level was low. It was checked once again 3 days ago at the primary care office and continued to be low. He does have a follow-up appointment with his neurologist Dr. Gordon tomorrow. There are no other alleviating, precipitating or modifying factors - Related Data Home Medications Medication Instructions Recorded Confirmed Metoprolol Tartrate [Lopressor] 25 mg PO BID 01/14/15 09/13/18 Temazepam [Restoril] 30 mg PO HS PRN 09/23/16 09/13/18 Apixaban [Eliquis] 5 mg PO BID 08/18/18 09/13/18 Atorvastatin Calcium [Lipitor] 10 mg PO HS 08/18/18 09/13/18 Cholecalciferol [Vitamin D3 (25 1,000 unit PO DAILY 08/18/18 09/13/18 Mcg = 1000 Iu)] Cyanocobalamin (Vitamin B-12) 2,500 mcg PO DAILY 08/18/18 09/13/18 [Vitamin B-12] Divalproex ER [Depakote ER] 500 mg PO BID 08/18/18 09/13/18 Divalproex Sodium [Depakote ER] 250 mg PO HS 08/18/18 09/13/18 Docusate [Colace] 100 mg PO DAILY PRN 08/18/18 09/13/18 Famotidine [Pepcid] 20 mg PO DAILY PRN 08/18/18 09/13/18 Finasteride [Proscar] 5 mg PO DAILY 08/18/18 09/13/18 Lisinopril [Zestril] 5 mg PO DAILY 08/18/18 09/13/18 Nitroglycerin Sl Tabs [Nitrostat] 0.4 mg SUBLINGUAL Q5M PRN 08/18/18 09/13/18 Polyethylene Glycol 3350 [Miralax] 17 gm PO DAILY PRN 08/18/18 09/13/18 Tamsulosin HCl [Flomax] 0.4 mg PO BID 08/18/18 09/13/18 Butalbital/Aspirin/Caffeine 1 - 2 tab PO Q6H PRN 08/19/18 09/13/18 [Ekxfyx-Scjzbtu-Ykwcvyre 50-325-40 mg] ALPRAZolam [Xanax] 0.25 mg PO HS PRN 09/13/18 09/13/18 Diazepam [Valium] 10 mg PO DAILY PRN 09/13/18 09/13/18 Previous Rx's Medication Instructions Recorded Aspirin EC [Ecotrin Low Dose] 81 mg PO DAILY #30 tablet. 04/22/17 Furosemide [Lasix] 40 mg PO BID 30 Days #60 tablet 08/24/18 Allergies Allergy/AdvReac Type Severity Reaction Status Date / Time levofloxacin [From Levaquin] Allergy Rash/Hives Verified 09/13/18 17:47 amphetamine AdvReac SEIZURE Verified 09/13/18 17:47 bupropion [From Wellbutrin] AdvReac SEIZURE Verified 09/13/18 17:47 ciprofloxacin [From Cipro] AdvReac SEIZURE Verified 09/13/18 17:47 lorazepam [From Ativan] AdvReac Confusion Verified 09/13/18 17:47 meperidine [From Demerol] AdvReac SEIZURE Verified 09/13/18 17:47 methylphenidate AdvReac SEIZURE Verified 09/13/18 17:47 [From Ritalin] tramadol AdvReac SEIZURE Verified 09/13/18 17:47 Review of Systems ROS Statement: Those systems with pertinent positive or pertinent negative responses have been documented in the HPI. ROS Other: All systems not noted in ROS Statement are negative. 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 Last Myocardial Infarction Date:: 2014 History of Any Multi-Drug Resistant Organisms: ESBL Date of last positivie culture/infection: 08/20/18 MDRO Source:: ESBL URINE Past Surgical History: Back Surgery, Coronary Bypass/CABG, Heart Catheterization With Stent Additional Past Surgical History / Comment(s): 2009 CABG 2 vessel, PCIs/ total of 10 stents per pt/family, low back fusion/rodsx2, bilateral cataract removals/lens implants, EGD, colonoscopy. Past Anesthesia/Blood Transfusion Reactions: No Reported Reaction Date of Last Stent Placement:: 2009 Past Psychological History: Anxiety Smoking Status: Former smoker Past Alcohol Use History: None Reported Past Drug Use History: None Reported - Past Family History Mother Family Medical History: Vascular Disorder Additional Family Medical History / Comment(s): Mother from an esophageal aneurysm rupture at the age of 83 yrs. Father Family Medical History: Cancer Additional Family Medical History / Comment(s): Father of lung cancer. He was an exsmoker. Brother(s) Additional Family Medical History / Comment(s): pt reports his brother to had a cardica hx General Exam Limitations: no limitations General appearance: alert, in no apparent distress Head exam: Present: atraumatic, normocephalic, normal inspection Eye exam: Present: normal appearance, PERRL, EOMI. Absent: scleral icterus, conjunctival injection, periorbital swelling ENT exam: Present: mucous membranes moist, other (ecchymosis to the tongue) Neck exam: Present: normal inspection. Absent: tenderness, meningismus, lymphadenopathy Respiratory exam: Present: normal lung sounds bilaterally. Absent: respiratory distress, wheezes, rales, rhonchi, stridor Cardiovascular Exam: Present: regular rate, normal rhythm, normal heart sounds. Absent: systolic murmur, diastolic murmur, rubs, gallop, clicks GI/Abdominal exam: Present: soft, normal bowel sounds. Absent: distended, tenderness, guarding, rebound, rigid Extremities exam: Present: normal inspection, full ROM, normal capillary refill. Absent: tenderness, pedal edema, joint swelling, calf tenderness Back exam: Present: normal inspection Neurological exam: Present: alert, oriented X3, CN II-XII intact Psychiatric exam: Present: normal affect, normal mood Skin exam: Present: warm, dry, intact, normal color. Absent: rash Course Vital Signs 09/13/18 09/13/18 09/13/18 17:02 19:00 19:19 Temperature 98.2 F 98.6 F Pulse Rate 74 65 Respiratory 16 18 Rate Blood Pressure 127/77 122/69 O2 Sat by Pulse 98 98 Oximetry Medical Decision Making - Medical Decision Making On arrival the patient was placed into room 6. A thorough history and physical exam was performed. The patient suffered no injuries from his seizure as he was sitting in a chair. He did have an episode of emesis therefore I did recommend a chest x-ray. The patient originally arrives and is on 2 L of oxygen. I did remove his oxygen and he maintained his sats without difficulty. No signs of respiratory distress. I did conduct laboratory studies. The patient's blood work does indicate that his valproic acid level is less than 10. I do believe this is likely secondary to his recent antibiotic use. I did recommend loading the patient with a gram of Depakote. Results were reviewed with his family. They are requesting to go home at this time. I will discharge the patient and he is instructed to follow-up with Dr. Gordon tomorrow at his scheduled appointment. If the patient has any new or worsening symptoms overnight he should return to the emergency room. The patient and his family were in agreement with the treatment plan and the patient was discharged home in stable condition - Differential Diagnosis acute breakthrough seizure, subtheraputic valproic acid level, acute vomiti - Lab Data Result diagrams: 09/13/18 17:25 09/13/18 17:25 Lab Results 09/13/18 09/13/18 09/13/18 Range/Units 17:25 17:25 17:25 WBC 2.7 L (3.8-10.6) k/uL RBC 3.18 L (4.30-5.90) m/uL Hgb 10.4 L (13.0-17.5) gm/dL Hct 31.2 L (39.0-53.0) % MCV 97.9 (80.0-100.0) fL MCH 32.7 (25.0-35.0) pg MCHC 33.4 (31.0-37.0) g/dL RDW 16.2 H (11.5-15.5) % Plt Count 206 (150-450) k/uL Neutrophils % 62 % Lymphocytes % 20 % Monocytes % 12 % Eosinophils % 2 % Basophils % 1 % Neutrophils # 1.7 (1.3-7.7) k/uL Lymphocytes # 0.5 L (1.0-4.8) k/uL Monocytes # 0.3 (0-1.0) k/uL Eosinophils # 0.1 (0-0.7) k/uL Basophils # 0.0 (0-0.2) k/uL Anisocytosis Slight Macrocytosis Slight Sodium 133 L (137-145) mmol/L Potassium 4.3 (3.5-5.1) mmol/L Chloride 97 L (98-107) mmol/L Carbon Dioxide 29 (22-30) mmol/L Anion Gap 7 mmol/L BUN 23 H (9-20) mg/dL Creatinine 1.14 (0.66-1.25) mg/dL Est GFR (CKD-EPI)AfAm 68 (>60 ml/min/1.73 sqM) Est GFR (CKD-EPI)NonAf 59 (>60 ml/min/1.73 sqM) Glucose 91 (74-99) mg/dL Calcium 8.6 (8.4-10.2) mg/dL Total Bilirubin 0.4 (0.2-1.3) mg/dL AST 30 (17-59) U/L ALT 14 L (21-72) U/L Alkaline Phosphatase 53 (38-126) U/L Total Protein 6.1 L (6.3-8.2) g/dL Albumin 3.2 L (3.5-5.0) g/dL Urine Color Yellow Urine Appearance Clear (Clear) Urine pH 6.5 (5.0-8.0) Ur Specific Edna 1.014 (1.001-1.035) Urine Protein Negative (Negative) Urine Glucose (UA) Negative (Negative) Urine Ketones Negative (Negative) Urine Blood Negative (Negative) Urine Nitrite Negative (Negative) Urine Bilirubin Negative (Negative) Urine Urobilinogen <2.0 (<2.0) mg/dL Ur Leukocyte Esterase Large H (Negative) Urine RBC 6 H (0-5) /hpf Urine WBC 26 H (0-5) /hpf Ur Squamous Epith Cells 2 (0-4) /hpf Hyaline Casts 24 H (0-2) /lpf Urine Mucus Rare H (None) /hpf Valproic Acid <10.0 ug/mL - EKG Data EKG Comments: EKG demonstrates atrial fibrillation with a rate of 67. QRS 86. QTC 445. There are no acute ST segment elevations or depressions concerning for ischemia. Disposition Clinical Impression: Epileptic seizure, Breakthrough seizure Disposition: HOME SELF-CARE Condition: Stable Instructions (If sedation given, give patient instructions): Recurrent Seizures in Adults (ED) Additional Instructions: Please follow-up with Dr. Gordon tomorrow at your scheduled appointment. Return to the emergency room if you have any new or worsening symptoms. Do not take your nighttime dose of Depakote Is patient prescribed a controlled substance at d/c from ED?: No Referrals: None,Stated [REFERRING] - 1-2 days Time of Disposition: 19:05
--- NOTE | 2018-09-13 18:26 | CT ---
EXAMINATION: CT brain wo con DATE AND TIME: 09/13/2018 6:12 PM CLINICAL INDICATION: PHH; pain TECHNIQUE: Standard departmental protocol.; 1142.4; COMPARISON: CT head without contrast 07/16/2018 and 05/05/2018 FINDINGS: The calvarium is intact. There is no intracranial hemorrhage. There is no intracranial mass or mass effect. No definite new intra-axial or extra-axial attenuation defect. The paranasal sinuses, middle ear cavities, and mastoid sinus air cells are clear. The orbits are unremarkable. IMPRESSION: No acute process; stable CT appearance.
--- NOTE | 2018-09-13 18:28 | XR ---
EXAMINATION: XR chest 3V DATE AND TIME: 09/13/2018 6:12 PM CLINICAL INDICATION: PHH; Cough/pain TECHNIQUE: Frontal and 2 lateral views COMPARISON: 09/07/2018 FINDINGS: The lungs are clear. The pleural spaces are negative. Sternal sutures and mediastinal clips are noted, with moderate enlargement of the cardiac silhouette and thoracic aortic ectasia both redemonstrated. The skeletal structures and soft tissues are negative for acute findings. IMPRESSION: No definite acute radiographic process.
[2018-09-13] MEDS ORDERED: DIVALPROEX 500 MG TABLET.DR PO STA (18:34)
[2018-09-13 19:19] VITALS: BP 122/69; PULSE 65; RESP 18; TEMP 98.6
== END 2018-09-13 19:19 | disposition home or self-care (01) ==
LOC: EC 16:57
DX: G40.909 Epilepsy, unspecified, not intractable, without status epilepticus (principal); R11.10 Vomiting, unspecified; I48.91 Unspecified atrial fibrillation; I20.9 Angina pectoris, unspecified; I11.0 Hypertensive heart disease with heart failure; I50.9 Heart failure, unspecified; I25.2 Old myocardial infarction; E78.5 Hyperlipidemia, unspecified; Z86.73 Personal history of transient ischemic attack (TIA), and cerebral infarction without residual deficits; Z87.891 Personal history of nicotine dependence; Z95.1 Presence of aortocoronary bypass graft; Z95.5 Presence of coronary angioplasty implant and graft; Z98.890 Other specified postprocedural states; Z79.01 Long term (current) use of anticoagulants; Z79.899 Other long term (current) drug therapy; Z88.1 Allergy status to other antibiotic agents; Z88.5 Allergy status to narcotic agent; Z88.8 Allergy status to other drugs, medicaments and biological substances
CPT/HCPCS: 36415; 70450; 71046; 80053; 80164; 81001; 85025; 87086; 93005; 99285

== ENCOUNTER → 2018-09-28 | Outpatient (CLI) | payer MEDICARE | END | disposition home or self-care (01) | LOC: LABWHC1 08:50 | PROVIDERS: ATTEND Psychiatry & Neurology Neurology | DX: G40.009 Localization-related (focal) (partial) idiopathic epilepsy and epileptic syndromes with seizures of localized onset, not intractable, without status epilepticus (principal) | CPT/HCPCS: 36415; 80164 ==

== ENCOUNTER → 2018-10-06 | Outpatient (CLI) | payer MEDICARE ==
--- NOTE | 2018-10-06 15:07 | US ---
EXAMINATION TYPE: US kidneys/renal and bladder DATE OF EXAM: 10/06/2018 COMPARISON: CT 07/17/2018 CLINICAL HISTORY: N28.1 Cyst of kidney. Patient stated had prior renal stone EXAM MEASUREMENTS: Right Kidney: 9.8 x 5.8 x 5.7 cm Left Kidney: 10.0 x 4.6 x 6.2 cm Post Void Residual Volume: 21.5 mL Right Kidney: multiple renal cysts with largest as cluster = 3.5 x 3.5 x 2.4cm lateral pole. Left Kidney: multiple renal cysts with largest = 3.6 x 3.6 x 1.5cm as oval cyst mid cortex; couple of microcalcifications seen in lateral cortex. Bladder: wnl Bilateral Jets seen: no, only right ureteral jet was seen Normal Post Void Residual: yes IMPRESSION: 1. Faint calcification without obstruction. 2. Multiple bilateral simple appearing renal cysts.
== END | disposition home or self-care (01) ==
LOC: RADUSWWP 13:58
PROVIDERS: ATTEND Family Medicine
DX: N28.89 Other specified disorders of kidney and ureter (principal); N28.1 Cyst of kidney, acquired
CPT/HCPCS: 76770